=== PATIENT | female | born 1935 | race Caucasian/White ===

== ENCOUNTER 2024-04-20 05:48 | Outpatient (REF) | payer MEDICARE, SELFPAY ==
--- OUTSIDE RECORDS SUMMARY | 2024-04-20 05:51 | XMS_ITS | Encounter Summary ---
Author Organization [facility] Address [address] [place] [address] Care Team Providers Care Material Carrier Name Role Phone Mason Hoffman MD Primary Care Provider [phone] Reason for Visit * Reason Onset Date Comments fax order 03/30/2024 [facility] Fax Order [id number] Encounter Details Date Type Department Care Team (Late st Contact Info) Description 03/30/2024 Telephone Pediatrics - [place] [address] [place] [address] Mason Hoffman MD [address] [place] [address] fax order ([facility] Fax Order [id number]) Social History Tobacco Use Types Packs/Day Years Used Date Smoking Tobacco: Former Cigarettes Q uit: 12/01/2016 Smokeless Tobacco: Never Alcohol Use Standard Drinks/Week Comments Not Currently 0 (1 standard drink = 0.6 oz pur e alcohol) Housing Instability Answer Date Recorde d Are you worried that in the next 2 months you may not have stable housing? No 03/23/2024 Food Access & Nutrition Answer Date Rec orded Do you have access to a vari ety of food including fruits and vegetables? No 03/23/2024 Access to Healthcare Answer Date Record ed Within the last 3 months, abilio w many times did you visit the emergency department for your medical care? 2 03/23/2024 Health Literacy Answer Date Recorded How often do you need to hav e someone help you when you read instructions, pamphlets, or other written material from your doctor or pharmacy? Never 03/23/2024 Caregiver: How often do you need to have someone help you when you read instructions, pamphlets, or other written material from your doctor or pharmacy? Not on file 03/23/2024 Financial Risk Answer Date Recorded How hard is it for you to pa y for the very basics like food, housing, medical care, and air conditioning / heating? Not very hard 03/23/2024 Transportation Answer Date Recorded Has the lack of transportati on kept you from meetings, work, or from getting things needed for daily living? Yes Has the lack of transportati on kept you from medical appointments or from getting medications? Yes 03/23/2024 Social Isolation Answer Date Recorded How often do you feel lonely or isolated from th ose around you? Never 03/23/2024 Food Risk Answer Date Recorded Within the past 12 months we worried whether our food would run out before we got money to buy more. Never true 03/23/2024 Within the past 12 months th e food we bought just didn't last and we didn't have money to get more. Never true 03/23/2024 Dependent Care Answer Date Recorded Do you need help finding or paying for care for your loved ones. For example, early childhood education coordinator or elderly care for an older adult? No 03/23/2024 Education Answer Date Recorded Do you think completing more education or training, like finishing a GED, going to college, or learning a trade, would be helpful for you? N/A 03/23/2024 Employment and Income Answer Date Recor ded During the last four weeks, have you been actively looking for work? No 03/23/2024 Living Situation Answer Date Recorded What is your living situation? 0 03/23/2024 Interpersonal Safety Answer Date Record ed Physical Abuse 04/01/2024 Verbal Abuse 04/01/2024 Comments Unknown Sex and Gender Information Value Date Recorded Sex Assigned at Female 02/06/2024 5:07 AM EST Legal Sex Female 3:24 AM EST Gender Identity Female 02/06/2024 5:07 AM EST Sexual Orientation Straight 02/06/2024 5: 07 AM EST documented as of this encounter Functional Status * Are you deaf or do you have serious difficulty hearing? Answer Date of Assessment Author No 02/06/2024 1:51 AM Ramona Robbins RN * Are you blind or do you have serious difficulty seeing, even when wearing glasses? Answer Date of Assessment Author No 02/06/2024 1:51 AM Ramona Robbins RN * Do you have serious difficulty walking or climbing stairs? Answer Date of Assessment Author Yes 02/06/2024 1:51 AM Ramona Robbins RN * Do you have serious difficulty dressing or bathing? Answer Date of Assessment Author Yes 02/06/2024 1:51 AM Ramona Robbins RN * Because of a physical, mental, or emotional condition, do you have serious difficulty doing errandsalone such as visiting the doctor? Answer Date of Assessment Author No 02/06/2024 1:51 AM Ramona Robbins RN documented as of this encounter Mental Status * Because of a physical, mental, or emotional condition, do you have serious difficulty concentrating, remembering, or making decisions? (5 years old or older) Answer Entry Date Author No 02/06/2024 1:51 AM Ramona Robbins RN documented in this encounter Progress Notes * Aracely Moore MA - 03/31/2024 3:15 PM EST Faxed back * Kelle Cody - 03/30/2024 3:40 PM EST [facility] fax order placed in Mason Hoffman MD bin. Please sign, date, and fax back to [phone]. Thank you documented in this encounter Plan of Treatment Upcoming Encounters Date Type Department Care Team (Late st Contact Info) Description 04/30/2024 3:00 PM EST Consult Pulmonolgy - [place] [address] [facility] [address] [place] [address] Guille Gupta MD [address] [facility] [address] [place] [address] 09/27/2024 9:55 AM EDT Office Visit [facility] - [facility] [address] [facility] [address] [place] [phone] Jimmy Noguera MD [address] [place] [address] documented as of this encounter Visit Diagnoses Not on filedocumented in this encounter Additional Health Concerns Assessment Noted Time PHQ-9 Depression Total Score: 0 03/21/19 25 3:19 PM EST documented as of this encounter Care Teams Material Carrier Relationship Specialty Start Date End Date Mason Hoffman MD [address] [place] [address] PCP - General Internal Medicine 02/05/24 documented as of this encounter
--- OUTSIDE RECORDS SUMMARY | 2024-04-20 05:51 | XMS_ITS | Encounter Summary ---
Author Organization [facility] Address [address] [place] [address] Care Team Providers Care Surface Supply Breathing Apparatus Name Role Phone Abraham Valle MD Primary Care Provider Encounter Details Date Type Department Care Team (Late st Contact Info) Description 06/18/2018 6:20 PM EDT Hospital Encounter [facility] [address] [place] [phone] Simon Robles MD [address] [place] [id number] Pain Social History Tobacco Use Types Packs/Day Years Used Date Smoking Tobacco: Former Smokeless Tobacco: Never Sex and Gender Information Value Date Recorded Sex Assigned at Not on file Gender Identity Not on file Sexual Orientation Not on file documented as of this encounter Plan of Treatment Not on file documented as of this encounter Procedures Procedure Name Priority Date/Time Associated Diagnosis Comments XR FINGER (5TH) 2+ VIEWS-RIGHT Routine 06/18/2018 6:25 PM EDT Pain documented in this encounter Results * XR Finger (5th) 2+ views-Right (06/18/2018 6:25 PM EDT) Anatomical Region Laterality Modality Hand Right Computed Radiogr aphy 06/18/2018 6:29 PM EDT Impressions 06/18/2018 6:31 PM EDT Prominent degenerative changes, but no definite acute osseous injury identified. ?? Narrative 06/18/2018 6:31 PM EDT STUDY: XR FINGER (5TH) 2+ VIEWS-RIGHT INDICATION: injury. bruising and swelling COMPARISON: No prior similar studies were available for comparison at this institution. FINDINGS: Prominent degenerative changes are seen, most severe at the first interphalangeal joint and second through fifth distal interphalangeal joints. This somewhat limits evaluation for nondisplaced fractures, but no definite displaced fracture or dislocation is seen. No radiopaque foreign body is identified. Procedure Note Maria Luz Young MD - 06/18/2018 STUDY: XR FINGER (5TH) 2+ VIEWS-RIGHT INDICATION: injury. bruising and swelling COMPARISON: [facility] FINDINGS: Prominent degenerative changes are seen, most severe at the firstinterphalangeal joint and second through fifth distal interphalangealjoints. This somewhat limits evaluation for nondisplaced fractures, but nodefinite displaced fracture or dislocation is seen. No radiopaque foreign body is identified. IMPRESSION: Prominent degenerative changes, but no definite acute osseous injuryidentified. Jaya ARCHER IMG DIAGNOSTIC IMAGI NG ORDERABLES documented in this encounter Visit Diagnoses Diagnosis Pain Generalized pain documented in this encounter Care Teams Surface Supply Breathing Apparatus Relationship Specialty Start Date End Date Abraham Valle MD [address] [place] [address] PCP - General Internal Medicine 06/18/18 documented as of this encounter
--- OUTSIDE RECORDS SUMMARY | 2024-04-20 05:51 | XMS_ITS | Encounter Summary ---
Author Organization [facility] Address [address] [place] [address] Care Team Providers Care Process Eng Name Role Phone Mason Hoffman MD Primary Care Provider [phone] Reason for Visit * Reason Onset Date Comments Request For Order(s) 03/22/2024 [facility] [id number] Encounter Details Date Type Department Care Team ([facility] Contact Info) Description 03/22/2024 Telephone Pediatrics - [place] [address] [place] [address] Mason Hoffman MD [address] [place] [address] Request For Order(s) ([facility] [id number]) Social History Tobacco Use Types Packs/Day Years [...] care for your loved ones. For example, child welfare specialist or elderly care for an older adult? [...] Safety Answer Date Record ed Physical Abuse 02/06/2024 Verbal Abuse 02/06/2024 Comments Unknown Sex and Gender Information Value [...] Progress Notes * Aracely Moore MA - 03/23/2024 12:59 PM EST Faxed back * Rebeka Lopez - 03/22/2024 9:18 AM EST Placed order in Mason Hoffman MD Please sign and fax back to [phone] documented in this encounter Plan of Treatment Upcoming Encounters Date Type Department Care Team (Late st Contact Info) Description 04/30/2024 3:00 PM EST Consult Pulmonolgy - [place] [address] [facility] [address] [place] [phone] Guille Gupta MD [address] [facility] [address] [place] [address] 09/27/2024 9:55 AM EDT Office Visit [facility] - [facility] [address] [facility] [address] [place] [phone] Jimmy Noguera MD [address] [place] [address] documented as of this encounter Visit Diagnoses Not on filedocumented in this encounter Additional Health Concerns Assessment Noted Time PHQ-9 Depression Total Score: 0 03/21/19 25 3:19 PM EST documented as of this encounter Care Teams Process Eng Relationship Specialty Start Date End Date Mason Hoffman MD [address] [place] [address] PCP - General Internal Medicine 02/05/24 documented as of this encounter
--- OUTSIDE RECORDS SUMMARY | 2024-04-20 05:51 | XMS_ITS | Encounter Summary ---
Author Organization [facility] Address [address] [place] [address] Care Team Providers Care Publications Production Supervisor Name Role Phone Mason Hoffman MD Primary Care Provider [phone] Reason for Visit * Reason Comments Home health cert Encounter Details Date Type Department Care Team (Late st Contact Info) Description 03/26/2024 Billing Patient Not Present [facility] - [place] [address] [place] [address] Mason Hoffman MD [address] [place] [address] Encounter for change or removal of nonsurgical wound dressing (Primary Dx); Open wound of lower back and pelvis without penetration into retroperitoneum, initial encounter; Hypertensive heart and kidney disease, malignant, 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, with heart failure (CMS/HCC); Chronic obstructive pulmonary disease with acute exacerbation (CMS/HCC); Anemia, unspecified type; Atrioventricular block, complete (CMS/HCC); Difficulty walking; Muscle weakness (generalized); Acute and chronic respiratory failure with hypoxia (CMS/HCC); Chronic diastolic congestive heart failure (CMS/HCC); Peripheral vascular disease, unspecified (CMS/HCC); Hyperlipidemia, unspecified hyperlipidemia type; Stage 3 chronic kidney disease, unspecified whether stage 3a or 3b CKD (CMS/HCC); 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 For example, early childhood teacher assistant or elderly care for an older adult? [...] Progress Notes * Aracely Moore MA - 03/26/2024 2:59 PM EST Start of Care Date: 03/12/2024 Date of certification period: 03/12/24 to 05/10/24 Date of service = signature date 03/22/24 Hospice patient: no Home Care Agency: [facility] Recertification Code [id number] Initial Code G0180 documented in this encounter Plan of Treatment Upcoming Encounters Date Type Department Care Team (Late st Contact Info) Description 04/30/2024 3:00 PM EST Consult Pulmonolgy - [place] [address] [facility] [address] [place] [phone] Guille Gupta MD 175 [facility] [address] [place] [address] 09/27/2024 9:55 AM EDT Office Visit [facility] - [facility] [address] [facility] [address] [place] [phone] Jimmy Noguera MD [address] [facility] [address] [place] [address] documented as of this encounter Visit Diagnoses Diagnosis Encounter for change or removal of nonsurgical wound dressing- Primary Open wound of lower back and pelvis without penetration into retroperitoneum, initial encounter Hypertensive heart and kidney disease, malignant, 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, with heart failure (CMS/HCC) Chronic obstructive pulmonary disease with acute exacerbation (CMS/HCC) Anemia, unspecified type Atrioventricular block, complete (CMS/HCC) Atrioventricular block, complete Difficulty walking Difficulty in walking Muscle weakness (generalized) Acute and chronic respiratory failure with hypoxia (CMS/HCC) Chronic diastolic congestive heart failure (CMS/HCC) Peripheral vascular disease, unspecified (CMS/HCC) Peripheral vascular disease, unspecified Hyperlipidemia, unspecified hyperlipidemia type Stage 3 chronic kidney disease, unspecified whether stage 3a or 3b CKD (CMS/HCC) Anemia in chronic kidney disease, unspecified CKD stage Anxiety disorder, unspecified type 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
--- OUTSIDE RECORDS SUMMARY | 2024-04-20 05:51 | XMS_ITS ---
Author Organization [facility] Address [address] [place] [address] Phone Care Team Providers Care Heavy Equipment Operating Engineer Name Role Phone Mason Hoffman MD Primary Care Provider [phone] [facility] - Transportation Status:Ongoing (Active) Start date:03/24/2024 Enrollment date:03/24/2024 Enrollment reason:Referred by Care Team Related social drivers of health:Transportation Related program episode:Community Health Worker Program (Active) Overview Community Health Worker Program - Transportation Service Episode Case Team Name Relationship Phone Annette Dahl Community Health Worker(Responsi ble Staff) Continued Care and Services Coordination
--- OUTSIDE RECORDS SUMMARY | 2024-04-20 05:51 | XMS_ITS | Encounter Summary ---
Author Organization [facility] Address [address] [place] [address] Care Team Providers Care Quality Assurance Monitor Chassis Name Role Phone Mason Hoffman MD Primary Care Provider [phone] Reason for Visit * Reason Onset Date Comments Request For Order(s) 03/17/2024 [facility] [id number] Encounter Details Date Type Department Care Team ([facility] Contact Info) Description 03/17/2024 Telephone Pediatrics - [place] [address] [place] [address] Mason Hoffman MD [address] [place] [address] Request For Order(s) ([facility] [id number]) Social History Tobacco Use Types Packs/Day Years [...] for your loved ones. For example, child care attendant or elderly care for an older adult? [...] documented in this encounter Progress Notes * Rebeka Lopez - 03/17/2024 1:27 PM EST Placed order in Mason Hoffman MD Please sign and fax back to [phone] documented in this encounter Plan of Treatment Upcoming Encounters Date Type Department Care Team (Late st Contact Info) Description 04/30/2024 3:00 PM EST Consult Pulmonolgy - [place] 175 [facility] 200 [place] [address] Guille Gupta MD 175 [facility] 200 [place] [address] 09/27/2024 9:55 AM EDT Office Visit [facility] - [facility] [address] [facility] [address] [place] [address] Jimmy [facility]oguera MD [facility] [address] [place] [address] documented as of this encounter Visit Diagnoses Not on filedocumented in this encounter Additional Health Concerns Infection Onset Date Last Indicated Resolved Time Respiratory Rule-Out 03/31/2024 03/31/2024 025 5:53 PM EST COVID-19 Rule-Out 03/31/2024 03/31/2024 03/31/2024 5:53 PM EST documented as of this encounter Care Teams Quality Assurance Monitor Chassis Relationship Specialty Start Date End Date Mason Hoffman MD [address] [place] [address] PCP - General Internal Medicine 02/05/24 documented as of this encounter
--- OUTSIDE RECORDS SUMMARY | 2024-04-20 05:51 | XMS_ITS | Encounter Summary ---
Author Organization [facility] Address [address] [place] [address] Care Team Providers Care Designer Architect Name Role Phone Mason Hoffman MD Primary Care Provider [phone] Reason for Visit * Reason Comments Hospital Follow-up S/P device implant 1 04/08/2023 Encounter Details Date Type Department Care Team (Late st Contact Info) Description 03/26/2024 8:10 AM EST Telemedicine [facility] - [facility] [address] [facility] [address] [place] [address] Alma Hanson NP [address] [place] [address] Status post placement of cardiac pacemaker (Primary Dx) Social History Tobacco Use Types Packs/Day Years [...] for your loved ones. For example, child development assistant or elderly care for an older [...] documented in this encounter Progress Notes * Alma Hanson, OZZY - 03/26/2024 8:10 AM EST PRIMARY EQUIPMENT MAN: Erick Noguera MD PCP: Mason Hoffman MD Alma Cassidy is a 89 y.o. old female History of Present Illness Past medical history 1. O2 dependent COPD 2. CVA 3. Complete heart block, status post [employer] dual-chamber pacemaker implantation on January 4. Recurrent GI bleed, angiodysplasia of the colon, January 2024, presented to the ER with hematemesis, note reads hemoglobin improved to 7.8. 5. PAD - Carotid artery disease noted 70% stenosis on the left in 2022 6. Hypertension 7. Aortic stenosis 8. Chronic kidney disease baseline creatinine 1.8 9. Stage 3 A paroxymal atrial fibrillation, record would suggest first diagnosed in 2022 - diagnosed at time of acute ischemic CVA July 2022, note reads known new onset atrial fibrillation, anticoagulation held due to GI bleed. Rate controlled with beta-eloy She was scheduled to establish care with our practice in 2021, this appointment was not kept, multiple attempts made to reschedule, but each time appointments were canceled by this patient. We next encountered her at the time of her presentation with complete heart block in January 2024. CONSENT I ensured compliance with state and federal regulations by utilizing audio only telecommunication technology. Through verbal confirmation, I verified the patient's identity and provided information on telephonic delivery of care, HIPAA privacy, and the risks of communicating over the phone. The patient acknowledged the limitations of treatment via telephone and consented to the audio visit. They also confirmed their comfort in a quiet and private location to discuss their health freely. The patient was informed that the visit would be submitted to their insurance, and any applicable co-pay ordeductible would be their responsibility. Additionally, if the patient is limited Azerbaijani proficient , deaf, or hard of hearing, speech impaired, or has another disability which impairs their ability to communicate, the services of a qualified typewriter tester will be provided during the visit. Patient does not have video capability Patients Location: Home Provider Location: [address] [place] [address], [address], [facility] Total Time: 30 minutes Reason for telemedicine encounter: Hospital follow up, unable to transport from home. Echocardiogram January 2024, left ventricular cavity size normal, mild concentric LVH, EF 65 to 70%, no regional wall motion abnormalities. Normal right ventricular size and systolic function. Mild aortic stenosis, severe calcification of the mitral valve leaflets, mild MR, unable to assess degreeof mitral stenosis due to to complete heart block and heart rate variation. Elevated pulmonary pressures. Study completed and complete heart block Echocardiogram July 2022, normal left ventricular chamber size and wall thickness. Unable to assesswall motion. EF 70%, mid cavity gradient at rest 60 mmHg unable to obtain Valsalva, of note the study states diastolic function cannot be made as the patient appears to be in atrial fibrillation mildTR, moderate to severe mitral stenosis with an average mean gradient of 11 mmHg trace MR Since returning home - continued SOB, no significant orthopnea or PND. Mild right ankle edema That resolves with elevation. She has had no exertional chest pain, lightheadedness. She will occasionally feel palpitations, she felt some this morning, she did send me a manual download and there were norecorded events. Most recent atrial arrhythmia was recorded on March 21, this was a slow one-to-one probable atypical flutter or atrial tachycardia, in January she had an episode of atrial fibrillation that lastedfor for close to 8 days, with borderline rate control by histogram, but review of electrograms showperiods of rapid ventricular pacing, which may have been due to under sensing in the atrium and tracking. Most recent BMP March 11, 2024, potassium 4.7, BUN and creatinine at baseline 20/1.71 Magnesium February 07, 2024 3.1, TSH 1.98 Results ACTIVE MEDICATIONS: Outpatient Medications Marked as Taking for the 03/26/24 encounter (Telemedicine) with Alma Hanson NP Medication Sig Dispense Refill atorvastatin (LIPITOR) 40 mg tablet Take 1 tablet (40 mg total) by mouth 1 (one) time each day. budesonide (PULMICORT) 0.5 mg/2 mL nebulizer solution Take 2 mL (0.5 mg total) by nebulization 2 (two) times a day. furosemide (LASIX) 20 mg tablet Take 1 tablet (20 mg total) by mouth 1 (one) time each day. iron,carbonyl-vitamin C 65 mg iron- 125 mg tablet,delayed release (DR/EC) Take 1 tablet by mouth 1 (one) time each day. metoprolol succinate (TOPROL-XL) 50 mg 24 hr tablet Take 1 tablet (50 mg total) by mouth 1 (one) time each day. polyethylene glycol (MIRALAX) 17 gram packet Take 17 g by mouth 1 (one) time each day. 90 packet 0 senna-docusate (PERICOLACE) 8.6-50 mg per tablet Take 1 tablet by mouth 1 (one) time each day. 90 each 0 [DISCONTINUED] aspirin 81 mg EC tablet Take 1 tablet (81 mg total) by mouth 1 (one) time each day. [DISCONTINUED] metoprolol succinate (TOPROL-XL) 50 mg 24 hr tablet TAKE 1 TABLET BY MOUTH DAILY 90 tablet 0 ALLERGIES: Allergies Allergen Reactions Gabapentin Hallucinations Visual and auditory hallucinations FAMILY HISTORY: Family History Problem Relation Name Age of Onset Hypertension Mother Stroke Mother Heart attack Father Coronary artery disease Father No Known Problems Daughter Stroke Son Mental illness Son deficiences from car accident No Known Problems Son Coronary artery disease Brother No Known Problems Brother SOCIAL HISTORY: Social History Tobacco Use Smoking status: Former Current packs/day: 0.00 Types: Cigarettes Quit date: 12/01/2016 Years since quittin.3 Smokeless tobacco: Never Substance Use Topics Alcohol use: Not Currently PHYSICAL EXAM: There were no vitals taken for this visit. There is no height or weight on file to calculate BMI. Physical Exam Constitutional: General: She is awake. Neurological: Mental Status: She is alert and oriented to person, place, and time. Encounter Date: 02/20/24 ECG 12 lead Result Value Ventricular Rate ECG 77 Atrial Rate 77 P-R Interval 166 QRS Duration 134 Q-T Interval 438 QTc 495 P Wave [place] 89 R [place] 138 T [place] 79 ECG Interpretation Atrial-sensed ventricular-paced rhythm Abnormal ECG When compared with ECG of 20-FEB-2024 09:01, No significant change was found Confirmed by ERICK CARSON ([id number]) on 02/21/2024 9:16:05 AM *Note: Due to a large number of results and/or encounters for the requested time period, some results have not been displayed. A complete set of results can be found in Results Review. TESTING: Lab Results Component Value Date NA 141 03/11/2024 K 4.7 03/11/2024 CL 107 03/11/2024 CO2 28 03/11/2024 GLUCOSE 113 (H) 03/11/2024 BUN 20 03/11/2024 CREATININE 1.71 (H) 03/11/2024 CALCIUM 9.3 03/11/2024 PROT 5.3 (L) 03/08/2024 ALBUMIN 2.6 (L) 03/08/2024 BILITOT 0.5 03/08/2024 AST 13 03/08/2024 ALT 16 03/08/2024 PHOS 4.2 02/07/2024 MG 3.1 (H) 02/07/2024 ALKPHOS 89 03/08/2024 EGFR 29 (L) 03/11/2024 , Lab Results Component Value Date WBC 6.9 03/11/2024 HGB 7.5 (L) 03/11/2024 HCT 26.7 (L) 03/11/2024 MCV 96.7 03/11/2024 PLT 272 03/11/2024 , Lab Results Component Value Date CHOL 153 09/12/2022 Lab Results Component Value Date HDL 82 09/12/2022 No results found for: LDLCALC Lab Results Component Value Date TRIG 79 09/12/2022 No results found for: CHOLHDL , Lab Results Component Value Date TSH 1.98 02/06/2024 , No results found for: DIGOXIN , Lab Results Component Value Date GLUCOSE 113 (H) 03/11/2024 CALCIUM 9.3 03/11/2024 NA 141 03/11/2024 K 4.7 03/11/2024 CO2 28 03/11/2024 CL 107 03/11/2024 BUN 20 03/11/2024 CREATININE 1.71 (H) 03/11/2024 , Lab Results Component Value Date HSTROPI 16 02/06/2024 , and No results found for: CRP PAST MEDICAL HISTORY: Patient Active Problem List Diagnosis Date Noted Third degree AV block ([facility]) 02/06/2024 Paroxysmal atrial fibrillation ([facility]) 03/26/2024 PAD (peripheral artery disease) ([facility]) 03/26/2024 Cerebrovascular accident (CVA) due to embolism of precerebral artery ([facility]) 03/26/2024 Gastrointestinal hemorrhage with hematemesis 03/26/2024 Nonrheumatic mitral valve stenosis 03/26/2024 Nonrheumatic aortic valve stenosis 03/26/2024 Chronic obstructive pulmonary disease ([facility]) 03/23/2024 Stage 4 chronic kidney disease ([facility]) 03/23/2024 Status post placement of cardiac pacemaker 03/23/2024 Primary hypertension 03/23/2024 As per AHA guidelines and previously established plan of care by Dr. Erick Noguera MD we discussedthe following today: ASSESSMENT/PLAN: Assessment & Plan Stage 3A paroxysmal Atrial Fibrillation/AT: - History of stroke not anticoagulated due to recurrent gastrointestinal bleeding -We discussed management, indication for anticoagulation, continued contraindication, presence of mitral stenosis she would be a candidate for only warfarin. We discussed Watchman device, need for general anesthesia, lifelong aspirin, 6 months of DAPT, poor candidacy. We also discussed pursuing rhythm control, she is not a candidate for the class Ic antiarrhythmics in the setting of vascular disease, sotalol nor Tikosyn ideal in the setting of chronic kidney disease, recent creatinines between 1.8 and 2.6. We may consider Multaq which might be cost prohibitive or amiodarone, but I do wish to discuss with you in the setting of severe COPD. She expressed understanding of her elevated risk of stroke, she stated that given her age, and comorbidities, she would not elect to move forward with watchman even if the team deemed her an acceptable candidate. I will discuss antiarrhythmic therapy further with Dr. Noguera and reach out to you for your input. For now we will continue to monitor her device for appropriate device behavior and burden of atrialfibrillation. HFpEF - Continue current dose of diuretic - Continue to encourage low-sodium eating, exercises much as she is able Complete heart block -[employer] dual-chamber pacemaker. Manual download today, normal device function, continue remote monitoring and annual in office follow-up in our device clinic Mitral Stenosis - continue to monitor with serial echo Problem List Items Addressed This Visit Status post placement of cardiac pacemaker - Primary Visit length 60 minutes including record review Thank you for allowing us to participate in the care of this patient. Today's documentation was made using voice recognition software.This note may contain grammatical errors secondary to this software. documented in this encounter Plan of Treatment Upcoming Encounters Date Type Department Care Team (Late st Contact Info) Description 04/30/2024 3:00 PM EST Consult Pulmonolgy - [place] [address] [facility] [address] [place] [id number] Guille Gupta MD [address] [facility] [address] [place] [address] 09/27/2024 9:55 AM EDT Office Visit [facility] - [address] [place] [address] Erick Noguera MD [address] [place] [address] documented as of this encounter Visit Diagnoses Diagnosis Status post placement of cardiac pacemaker- Primary documented in this encounter Discontinued Medications Medication Sig Discontinue Reason Start Date End Da te aspirin 81 mg EC tablet Take 1 tablet (81 mg total) by mouth 1 (one) time each day. 08/07/2022 03/26/2024 metoprolol succinate (TOPROL-XL) 50 mg 24 hr tablet TAKE 1 TABLET BY MOUTH DAILY 03/01/2024 03/26/2024 documented as of this encounter Historical Medications * This list may reflect changes made after this encounter. iron,carbonyl-vit lomeli C 65 mg iron- 125 mg tablet,delayed release (DR/EC) Take 1 tablet by mouth 1 (one) time each day. 06/28/2021 added in this encounter Additional Health Concerns Assessment Noted Time PHQ-9 Depression Total Score: 0 03/21/19 25 3:19 PM EST documented as of this encounter Care Teams Designer Architect Relationship Specialty Start Date End Date Mason Hoffman MD [address] [place] [address] PCP - General Internal Medicine 02/05/24 documented as of this encounter
--- OUTSIDE RECORDS SUMMARY | 2024-04-20 05:51 | XMS_ITS | Encounter Summary ---
Author Organization [facility] Address [address] [place] [address] Care Team Providers Care Homeworker Name Role Phone Mason Hoffman MD Primary Care Provider [phone] Reason for Referral * Consultation (Routine) - Authorized Specialty Diagnoses / Procedures Referred By Contac t Referred To Contact Nephrology Diagnoses Stage 4 chronic kidney disease ([facility]/HCC) Mason Hoffman MD [address] [place] [address] Phone: tel: fax: Nephrology - [address] Phone: tel: fax: Referral ID Status Reason Start Date Expiration Date Visits Requested Visits Authorized [id number] Authorized Specialty Services Required 03/23/2024 03/23/2025 1 1 * Consultation (Routine) - Authorized Specialty Diagnoses / Procedures Referred By Contac t Referred To Contact Pulmonary Disease / Pulmonology Diagnoses Chronic obstructive pulmonary disease, unspecified COPD type ([facility]/HCC) Mason Hoffman MD [address] [place] [address] Phone: tel: fax: Pulmonol[address] [address] Phone: tel:[phone] fax:[phone] Referral ID Status Reason Start Date Expiration Date Visits Requested Visits Authorized [id number] Authorized Specialty Services Required 03/23/2024 03/23/2025 1 1 Reason for Visit * Reason Comments Hospital Follow-up Encounter Details Date Type Department Care Team (Late st Contact Info) Description 03/23/2024 10:30 AM EST Telemedicine Assistant Field Hockey Coach [facility] [address] [place] [address] Mason Hoffman MD [address] [place] [address] Hospital discharge follow-up (Primary Dx); Chronic obstructive pulmonary disease, unspecified COPD type (CMS/HCC); Stage 4 chronic kidney disease (CMS/HCC); Third degree AV block (CMS/HCC); Status post placement of cardiac pacemaker; Primary hypertension Social History Tobacco Use Types Packs/Day Years [...] care for your loved ones. For example, children's nursery assistant or elderly care for an older [...] of Assessment Author No 02/06/2024 1:51 AM EST Ramona Snow RN * Are you blind or do you have serious difficulty seeing, even when wearing glasses? Answer Date of Assessment Author No 02/06/2024 1:51 AM EST Ramona Snow RN * Do you have serious difficulty [...] documented in this encounter Progress Notes * Mason Hoffman MD - 03/23/2024 10:30 AM EST The patient received guidance on receiving healthcare through telehealth, including the use of HIPAA privacy -compliant technology for remote communication and its associated privacy risks. The patient was also informed of the limitations of treatment provided through telehealth and that in the event of a lost or failed video connection, the provider may call back or reschedule the visit. Alternatively, the patient may opt for an in-person visit. The patient gave consent for the use of video communication and provided care and confirmed that they were in a quiet and private location to discuss their health freely. The patient understands the visit will be submitted to their insurance and that they are responsible for any copay or deductible charges. Additionally, if the patient is LimitedEnglish Proficient, deaf, or hard of hearing, speech impaired, or has another disability which impairs their ability to communicate, the services of a qualified superintendent mechanical will be provided during the visit. Patients Location: home Total Time: 40 minutes This visit was conducted with the use of an an interactive system that permits real time communication between the patient and provider. Patient consent for a virtual video visit was obtained on 03/23/2024. Originating Site: home Distant Site: office Additional individuals participating in remote visit: Alone CHIEF COMPLAINT: Hospital Follow-up IDENTIFIER: Alma Cassidy is a 89 y.o. old female HPI: Alma Cassidy is evaluated today for hospital follow-up. Patient with past medical history of oxygen dependent COPD, CVA late effect, CHF, hypertension, aortic stenosis and PAD was admitted at [facility] on 02/05/2024 due to worsening shortness of breath. Patient found to have third-degree heart block admission which required emergent permanent pacemaker placement and ICU admission. Pacemaker was placed 02/05. Additionally patient was found to have acute hypoxic respiratory failure secondary to acute COPD exacerbation as well as likely bacterial pneumonia. Patient uses 2 L of O2 via nasal cannula at at home with rest and exertion however in the hospital patient required O2 via HFN C. Patient had been started on IV Zosyn for multifocal pneumonia as apparent on imaging. Patient was weaned off O2 supplementation via HFNC to nasal cannula as of 02/07. Patient also had worsening inher renal function with creatinine increasing to 2.29 which was attributed to likely contrast-induced nephropathy. Patient was hydrated with IV fluids and IV Zosyn was discontinued and patient was started on ceftriaxone and doxycycline. Patient's creatinine levels gradually improved to 1.78 as of 02/10. Hospital stay involved mild hypernatremia which was treated with D5 water infusion. PT evaluation was performed which recommended SNF placement. Patient was discharged to SNF on 02/12/24 on a 5-day course of Augmentin and doxycycline for underlying pneumonia. During her stay at [facility] patient was transferred to the ER for hematemesis on 02/20/2024 andwas returned from ER with hemoglobin improved to 7.8. Her CT abdomen was negative for new pathology. Patient was discharged from [facility] on 03/11/2024. Discharge medications: START taking these medications Instructions Last Dose Given Next Dose Due amoxicillin-clavulanate 875-125 mg per tablet Commonly known as: AUGMENTIN Take 1 tablet by mouth 2 (two) times a day for 5 days. clonazePAM 0.25 mg disintegrating tablet Commonly known as: KlonoPIN Take 1 tablet (0.25 mg total) by mouth 2 (two) times a day if needed for anxiety for up to 7 days. Max Daily Amount: 0.5 mg doxycycline 100 mg capsule Commonly known as: VIBRAMYCIN Take 1 capsule (100 mg total) by mouth 2 (two) times a day for 5 days. Take with at least 8 ounces (large glass) of water, do not lie down for 30 minutes after CONTINUE taking these medications Instructions Last Dose Given Next Dose Due aspirin 81 mg EC tablet Take 1 tablet (81 mg total) by mouth 1 (one) time each day. atorvastatin 40 mg tablet Commonly known as: LIPITOR Take 1 tablet (40 mg total) by mouth 1 (one) time each day. budesonide 0.5 mg/2 mL nebulizer solution Commonly known as: PULMICORT Take 2 mL (0.5 mg total) by nebulization 2 (two) times a day. furosemide 20 mg tablet Commonly known as: LASIX Take 1 tablet (20 mg total) by mouth 1 (one) time each day. metoprolol succinate 50 mg 24 hr tablet Commonly known as: TOPROL-XL Take 1 tablet (50 mg total) by mouth 1 (one) time each day. Patient reports that she is doing well since her discharge from SNF. Patient is still on 2 L of oxygen at home. Patient is also using Pulmicort nebulizer every 4 hours to help with her breathing. Marilee completed her antibiotic course. Patient states that she has PT and OT visiting twice a week and a nurse who also visits twice a week. Patient states that she has no means of transportation and no family member who can take her to her specialist appointments. She has COPD on oxygen supplementation but does not follow with a athletic team physician. She has CKD stage IV with GFR 28 but does not follow with a building and construction manager. She has a pacemaker in place but does not know how to follow with the pain medicine physician. Patient's main concern is her transportation and she is wondering if that can be arranged for her to that she can go to her appointments. She is otherwise doing well and has no other concerns. Marilee been taking all her meds as prescribed since discharge. She is also on iron supplements twice aday for her anemia. Her last hemoglobin is stable above 7. Unclear etiology but most likely due to a nemia of chronic disease secondary to CKD. Patient denies any bleeding from anywhere. ROS: GENERAL: No malaise, significant weight loss or fever RESPIRATORY: Denies any cough, wheezing or shortness of breath. CARDIOVASCULAR: No chest pain, leg swelling or palpitations Gastroenterology: Denies any abdominal pain, diarrhea or blood in stool : Denies any urinary frequency or nocturia Skin: No concerns Neuro: No concerns All other systems reviewed and negative PAST MEDICAL HISTORY: Patient Active Problem List Diagnosis Date Noted Chronic obstructive pulmonary disease ([facility]) 03/23/2024 Stage 4 chronic kidney disease ([facility]) 03/23/2024 Status post placement of cardiac pacemaker 03/23/2024 Primary hypertension 03/23/2024 Third degree AV block ([facility]) 02/06/2024 ACTIVE MEDICATIONS: No outpatient medications have been marked as taking for the 03/23/24 encounter (Telemedicine) with Mason Hoffman MD. ALLERGIES: Gabapentin PHYSICAL EXAM: Telemedicine visit - Vitals could not be obtained as this was a telehealth visit. General: Patient sounded awake, alert and in no acute distress, on 2 L of oxygen Respiratory: No audible wheeze or respiratory distress heard Cardio: Patient denies any leg swelling on exam Skin: No lesions or rashes. Neuro: Patient is speaking in full Sentences Psych: AAOx3. Mood and affect appropriate IMPRESSION: 1. Hospital discharge follow-up 2. Chronic obstructive pulmonary disease, unspecified COPD type ([facility]) 3. Stage 4 chronic kidney disease ([facility]) 4. Third degree AV block ([facility]) 5. Status post placement of cardiac pacemaker 6. Primary hypertension PLAN: Information was extracted from the discharge notes from [facility]. The history was reviewed for accuracy and confirmed by myself. I have reconciled the current and discharge meds. Patient was admitted at [facility] on 02/05/2024 due to worsening shortness of breath. Patient found to have third-degree heart block admission which required emergent permanent pacemaker placement which was placed 02/05. Additionally patient was found to have acute hypoxic respiratory failure secondary to acute COPD exacerbation as well as likely bacterial pneumonia. Patient was treated with IV antibiotics and was placed on high flow nasal cannula. Patient was weaned off O2 supplementation via HFNC to nasal cannula as of 02/07. Patient also had worsening in her renal function with creatinine increasing to 2.29 which was attributed to likely contrast-induced nephropathy. Patient'screatinine levels gradually improved to 1.78 as of 02/10. Patient was discharged to SNF on 02/12/24on a 5-day course of Augmentin and doxycycline for underlying pneumonia. Patient was discharged from SNF to home with home health on 03/11/2024. Patient reports that she has been doing well since discharge however her main concern is transportation as she is not able to go in person to any of her specialist appointment as she has no means of transportation. She she has 1 son who has stroke and is unable to take her to appointments. She has 1 daughter who lives out of town and does not think that she can help with her transportation. Patient is requesting us to arrange transportation so that she can go to her specialist appointment. I will refer patient to our social worker masters to see if she can help in arranging transportation for patient. I will also refer patient to pulmonology and nephrology for her underlying chronic disease. Patient was advised to continue with all her meds as prescribed including iron supplements. No repeat testing needed today. Follow-up with patient in 3 months via telehealth. I spent a total of 40 minutes on the date of the service, including [id number] time during the visit and jkt-[id number]-[id number]-face time spent on chart review, documentation, care coordination and performingthe following activities: Preparing to see the patient (e.g. reviewing tests), Obtaining and/or reviewing separately obtained history, Counseling and educating the patient and Documenting clinical information in the electronic health record. Orders Placed This Encounter Procedures Ambulatory referral to Pulmonology Ambulatory referral to Nephrology ADDITIONAL ORDERS: AMB REFERRAL TO PULMONOLOGY AMB REFERRAL TO NEPHROLOGY Today's documentation was made using voice recognition software.This note may contain grammatical errors secondary to this software. Mason Hoffman MD on 03/23/2024 at 11:05 AM EST documented in this encounter Plan of Treatment Upcoming Encounters Date Type Department Care Team (Late st Contact Info) Description 04/30/2024 3:00 PM EST Consult Pulmonolgy - [place] 175 [facility] [address] [place] [address] Guille Gupta MD 175 [facility] 200 [place] [address] 09/27/2024 9:55 AM EDT Office Visit [facility] - [facility] [address] [facility] [address] [place] [address] Jimmy Noguera MD 300 [facility] [address] [place] [address] Scheduled Referrals Name Type Priority Associated Diagnoses Order Schedule Ambulatory referral to Pulmonology Outpatient Referral Routine Chronic obstructive pulmonary disease, unspecified COPD type (CMS/HCC) 1 Occurrences starting 03/23/2024 until 03/23/2025 Ambulatory referral to Nephrology Outpatient Referral Routine Stage 4 chronic kidney disease (CMS/HCC) 1 Occurrences starting 03/23/2024 until 03/23/2025 documented as of this encounter Visit Diagnoses Diagnosis Hospital discharge follow-up- Primary Other follow-up examination Chronic obstructive pulmonary disease, unspecified COPD type (CMS/HCC) Stage 4 chronic kidney disease (CMS/HCC) Third degree AV block (CMS/HCC) Atrioventricular block, complete Status post placement of cardiac pacemaker Primary hypertension Unspecified essential hypertension documented in this encounter Additional Health Concerns Assessment Noted Time PHQ-9 Depression Total Score: 0 03/21/19 25 3:19 PM EST documented as of this encounter Care Teams Homeworker Relationship Specialty Start Date End Date Mason Hoffman MD [address] [place] [address] [place] [address] PCP - General Internal Medicine 02/05/24 documented as of this encounter
--- OUTSIDE RECORDS SUMMARY | 2024-04-20 05:51 | XMS_ITS | Encounter Summary ---
Author Organization [facility] Address [address] [place] [address] Care Team Providers Care Crystal Report Developer Name Role Phone Mason Hoffman MD Primary Care Provider [phone] Encounter Details Date Type Department Care Team ([facility] st Contact Info) Description 03/24/2024 Telephone [place] Community Health Worker Program [address] [place] [address] [place], [place] Social History Tobacco Use Types Packs/Day Years [...] your loved ones. For example, child welfare consultant or elderly care for an older adult? [...] documented in this encounter Progress Notes * Annette Dahl - 03/24/2024 12:15 PM EST Patient referred to me by Amrita Garcia (RN). Patient in need of transportation to her medical appointments. Mrs. Marquez is all set for transportations. [facility] is wheelchair accessible and they can transport her with oxygen. I did indicate to her that she would need to call 1 week prior to her appointments, or she can always call me and I can schedule them for her. I also shared with her the cost per ride. [facility] has another program ([employer]) that is free. She would need to apply for that one.I will schedule an outreach after FridayApril 05. so I can visit her with the application and assist her. Annette Dahl Community Health Worker documented in this encounter Plan of Treatment Upcoming Encounters Date Type Department Care Team (Late st Contact Info) Description 04/30/2024 3:00 PM EST Consult Pulmonolgy - [place] 175 [facility] [address] [place] [id number] Guille Gupta MD 175 [facility] 200 [place] [address] 09/27/2024 9:55 AM EDT Office Visit [facility] - [facility] [address] [facility] [address] [place] [address] Jimmy Noguera MD [address] [facility] [address] [place] [address] documented as of this encounter Visit Diagnoses Not on filedocumented in this encounter Additional Health Concerns Infection Onset Date Last Indicated Resolved Time Respiratory Rule-Out 03/31/2024 03/31/2024 025 5:53 PM EST COVID-19 Rule-Out 03/31/2024 03/31/2024 03/31/2024 5:53 PM EST Assessment Noted Time PHQ-9 Depression Total Score: 0 03/21/19 25 3:19 PM EST documented as of this encounter Care Teams Crystal Report Developer Relationship Specialty Start Date End Date Mason Hoffman MD [address] [place] [address] PCP - General Internal Medicine 02/05/24 documented as of this encounter
--- OUTSIDE RECORDS SUMMARY | 2024-04-20 05:51 | XMS_ITS ---
Author Organization [facility] Address [address] [place] [address] Phone Care Team Providers Care Signals Intelligence Analyst Name Role Phone Mason Hoffman MD Primary Care Provider [phone] Post Acute Care Coordination Status:Ongoing (Active) Start date:04/02/2024 Enrollment date:04/05/2024 Enrollment reason:Post acute care coordination Case Team Name Relationship Phone Rae Lyman RN Post Acute Clinical Care Coordinator(R esponsible Staff) Continued Care and Services Coordination
--- OUTSIDE RECORDS SUMMARY | 2024-04-20 05:51 | XMS_ITS | Encounter Summary ---
Author Organization [facility] Address [address] [place] [address] Care Team Providers Care Splitter Tender Name Role Phone Mason Hoffman MD Primary Care Provider [phone] Reason for Visit * Reason Onset Date Comments PROVIDER CALLBACK 03/19/2024 Encounter Details Date Type Department Care Team (Late Contact Info) Description 03/19/2024 Telephone Pediatrics - [facility] [address] [place] [address] Mason Hoffman MD [address] [place] [address] PROVIDER CALLBACK Social History Tobacco Use Types Packs/Day Years [...] ed Within the last 3 months, abilio flores many times did you visit the emergency [...] for your loved ones. For example, children's ministries director or elderly care for an older adult? [...] Assessment Author No 02/06/2024 1:51 AM EST aRmona Snow RN * Are you blind or [...] documented in this encounter Progress Notes * Brittany Garcia LPN - 03/19/2024 1:27 PM EST [facility] calling to make sure Dr. Hoffman will sign orders for pt's care. * Cheryl Kidd - 03/19/2024 11:28 AM EST [place]ie from [facility] caregivers is requesting to know if the pcp will be able to sign orders for the pt. Please callback @ [phone].Thx documented in this encounter Plan of Treatment Upcoming Encounters Date Type Department Care Team (Late st Contact Info) Description 04/30/2024 3:00 PM EST Consult Pulmonolgy - [place] 175 [facility] [address] [place] [address] Guille Gupta MD 175 [facility] [address] [place] [address] 09/27/2024 9:55 AM EDT Office Visit [facility] - [facility] [address] [facility] [address] [place] [phone] Jimmy Noguera MD [address] [facility] [address] [place] [address] documented as of this encounter Visit Diagnoses Not on filedocumented in this encounter Additional Health Concerns Infection Onset Date Last Indicated Resolved Time Respiratory Rule-Out 03/31/2024 03/31/2024 025 5:53 PM EST COVID-19 Rule-Out 03/31/2024 03/31/2024 03/31/2024 5:53 PM EST documented as of this encounter Care Teams Splitter Tender Relationship Specialty Start Date End Date Mason Hoffman MD [address] [place] [address] PCP - General Internal Medicine 02/05/24 documented as of this encounter
--- OUTSIDE RECORDS SUMMARY | 2024-04-20 05:51 | XMS_ITS ---
Author Organization [facility] Address [address] [place] [address] Phone Care Team Providers Care Ointment Mill Tender Name Role Phone Mason Hoffman MD Primary Care Provider [phone] Community Health Worker Program Status:Ongoing (Active) Start date:03/24/2024 Enrollment date:03/24/2024 Enrollment reason:Referred by Care Team Current support & services provided:Adult Related service episodes:[facility] - Transportation (Active) Overview Community Health Worker Program Case Team Name Relationship Phone Annette Dahl Community Health Worker(Responsi ble Staff) Continued Care and Services Coordination
--- OUTSIDE RECORDS SUMMARY | 2024-04-20 05:51 | XMS_ITS ---
Author Organization [facility] Address [address] [place] [address] Phone Care Team Providers Care Chain Person Name Role Phone Mason Hoffman MD Primary Care Provider [phone] Chronic Care Management Status:Ongoing (Active) Start date:03/23/2024 Enrollment date:03/23/2024 Enrollment reason:Referred by provider Case Team Name Relationship Phone Amrita Garcia RN Care Manager(Responsible Staff) Continued Care and Services Coordination
--- OUTSIDE RECORDS SUMMARY | 2024-04-20 05:52 | XMS_ITS | Encounter Summary ---
Author Organization [facility] Address [address] [place] [address] Care Team Providers Care Reinstatement Clerk Name Role Phone Mason Hoffman MD Primary Care Provider [phone] Encounter Details Date Type Department Care Team (Late st Contact Info) Description 03/03/2024 Lab Requisition [facility] - Main Lab [address] [facility] [place] [address] Wally Flood MD [address] [place] [address] Chronic obstructive pulmonary disease with (acute) exacerbation (CMS/HCC); Essential (primary) hypertension Social History Tobacco Use Types Packs/Day Years Used Date Smoking Tobacco: Former Cigarettes Q uit: 12/01/2016 Smokeless Tobacco: Never Alcohol Use Standard Drinks/Week Comments Not Currently 0 (1 standard drink = 0.6 oz pur e alcohol) Interpersonal Safety Answer Date Record ed Physical [...] Ramona Robbins RN documented in this encounter Plan of Treatment Upcoming Encounters Date Type Department Care Team (Late st Contact Info) Description 04/30/2024 3:00 PM EST Consult Pulmonolgy - [place] [address] [address] Guille Gupta MD 175 [facility] [address] [place] [address] 09/27/2024 9:55 AM EDT Office Visit [facility] [address] [facility] [address] [place] [address] Jimmy Noguera MD 300 [facility] [address] [place] [address] documented as of this encounter Procedures Procedure Name Priority Date/Time Associated Diagnosis Comments COMPLETE BLOOD COUNT Routine 03/04/2024 5:53 AM EST Chronic obstructive pulmonary disease with (acute) exacerbation (CMS/HCC) Essential (primary) hypertension BASIC METABOLIC PANEL Routine 03/04/2024 5:53 AM EST Chronic obstructive pulmonary disease with (acute) exacerbation (CMS/HCC) Essential (primary) hypertension documented in this encounter Results * (ABNORMAL) Complete blood count (03/04/2024 5:53 AM EST) WBC 8.1 4.8 - 10.8 K/mcL LAB HEMETOLOGY METHOD 03/04/2024 9:32 AM [facility] RBC 2.90(L) 3.80 - 4.80 M/mcL LAB HEMETOLOGY METHOD 03/04/2024 9:32 AM [facility] Hemoglobin 7.8(L) 11.5 - 16.0 g/dL LAB HEMETOLOGY METHOD 03/04/2024 9:32 AM [facility] Hematocrit 26.8(L) 35.0 - 47.0 % LAB HEMETOLOGY METHOD 03/04/2024 9:32 AM [facility] MCV 93.1 79.0 - 98.0 FL LAB HEMETOLOGY METHOD 03/04/2024 9:32 AM [facility] MCH 27.1 27.0 - 32.0 pcg LAB HEMETOLOGY METHOD 03/04/2024 9:32 AM [facility] MCHC 29.1(L) 32.0 - 37.0 g/dL LAB HEMETOLOGY METHOD 03/04/2024 9:32 AM [facility] RDW 17.5(H) 11.0 - 15.0 % LAB HEMETOLOGY METHOD 03/04/2024 9:32 AM [facility] Platelets 311 130 - 400 K/mcL LAB HEMETOLOGY METHOD 03/04/2024 9:32 AM [facility] MPV 11.2(H) 7.0 - 11.0 FL LAB HEMETOLOGY METHOD 03/04/2024 9:32 AM [facility] NRBC 0.0 <1.0 % LAB HEMETOLOGY METHOD 03/04/2024 9:32 AM [facility] NRBC Absolute 0.00 <0.10 K/mcL LAB HEMETOLOGY METHOD 03/04/2024 9:32 AM [facility] Blood Venous blood specimen / Unknown Venipuncture / Unknown 03/04/2024 5:53 AM EST 03/04/2024 9:22 AM EST us Wally Flood MD LAB BLOOD ORDERABLES Final Resu lt [facility] [address] [place] [address], [place] [phone] * (ABNORMAL) Basic metabolic panel (03/04/2024 5:53 AM EST) Sodium 138 133 - 145 mmol/L LAB CHEMISTRY METHOD 03/04/2024 9:38 AM [facility] Potassium 4.2 3.5 - 5.5 mmol/L LAB CHEMISTRY METHOD 03/04/2024 9:38 AM [facility] Chloride 103 96 - 110 mmol/L LAB CHEMISTRY METHOD 03/04/2024 9:38 AM [facility] CO2 26 21 - 32 mmol/L LAB CHEMISTRY METHOD 03/04/2024 9:38 AM [facility] Anion Gap 9 3 - 11 LAB CHEMISTRY METHOD 03/04/2024 9:38 AM [facility] Glucose 107(H) 70 - 100 mg/dL LAB CHEMISTRY METHOD 03/04/2024 9:38 AM [facility] BUN 27(H) 5 - 25 mg/dL LAB CHEMISTRY METHOD 03/04/2024 9:38 AM [facility] Creatinine 2.58(H) 0.50 - 1.10 mg/dL LAB CHEMISTRY METHOD 03/04/2024 9:38 AM [facility] eGFR 18(L) >=60 mL/min/1. 73m2 LAB CHEMISTRY METHOD 03/04/2024 9:38 AM EST [facility] Comment:Calculation based on the??Chronic Kidney Disease Epidemiology Collaboration (CKD-EPI) equation refit??without adjustment for race. BUN/Creatinine Ratio 10.5 LAB CHEMISTRY METHOD 03/04/2024 9:38 AM EST [facility] Calcium 9.7 8.5 - 10.5 mg/dL LAB CHEMISTRY METHOD 03/04/2024 9:38 AM EST [facility] Blood Venous blood specimen / Unknown Venipuncture / Unknown 03/04/2024 5:53 AM EST 03/04/2024 8:59 AM EST us Wally Flood MD LAB BLOOD ORDERABLES Final Resu lt [facility] [address] [place] [address], documented in this encounter Visit Diagnoses Diagnosis Chronic obstructive pulmonary disease with (acute) exacerbation (CMS/HCC) Essential (primary) hypertension Unspecified essential hypertension documented in this encounter Additional Health Concerns Infection Onset Date Last Indicated Resolved Time Respiratory Rule-Out 03/31/2024 03/31/2024 025 5:53 PM EST COVID-19 Rule-Out 03/31/2024 03/31/2024 03/31/2024 5:53 PM EST documented as of this encounter Care Teams Reinstatement Clerk Relationship Specialty Start Date End Date Mason Hoffman MD [address] [place] [address] PCP - General Internal Medicine 02/05/24 documented as of this encounter
--- OUTSIDE RECORDS SUMMARY | 2024-04-20 05:52 | XMS_ITS | Clinical Summary ---
Author Organization [facility] Address [address] [place] [address] Phone Care Team Providers Care Subscription Crew Leader Name Role Phone Mason Hoffman MD Primary Care Provider [phone] Allergies Active Allergy Reactions Criticality Noted Date Comments Gabapentin Hallucinations 02/05/2024 Visual and auditory hallucinations Medications atorvastatin (LIPITOR) 40 mg tablet Take 1 tablet (40 mg total) by mouth 1 (one) time each day. Active budesonide (PULMICORT) 0.5 mg/2 mL nebulizer solution Take 2 mL (0.5 mg total) by nebulization 2 (two) times a day. 024 Active polyethylene glycol (MIRALAX) 17 gram packet Take 17 g by mouth 1 (one) time each day. 90 packet 025 Active senna-docusate (PERICOLACE) 8.6-50 mg per tablet Take 1 tablet by mouth 1 (one) time each day. 90 each 025 2025 Active iron,carbonyl-vit lomeli C 65 mg iron- 125 mg tablet,delayed release (DR/EC) Take 1 tablet by mouth 1 (one) time each day. 022 Active pantoprazole (PROTONIX) 40 mg EC tablet Take 1 tablet (40 mg total) by mouth 1 (one) time each day. 025 Active furosemide (LASIX) 20 mg tablet Take 1 tablet (20 mg total) by mouth 1 (one) time each day. HOLD DUE TO KENDRA. REPEAT LABS AND RESUME ONCE CREATININE IMPROVED 025 2024 Active ipratropium-albut Augusto (DUONEB) 0.5-2.5 mg/3 mL nebulizer solutionIndicatio ns:COPD exacerbation (CMS/HCC),Acute on chronic hypoxic respiratory failure (CMS/HCC) Take 3 mL by nebulization 4 (four) times a day for 5 days. Change to QID for the next 5 days then go back to QID PRN SOB/wheezing Active metoprolol succinate (TOPROL-XL) 50 mg 24 hr tablet Take 1 tablet (50 mg total) by mouth 1 (one) time each day. Hold for SBP<100, HR<60 Active aspirin 81 mg EC tablet Take 1 tablet (81 mg total) by mouth 1 (one) time each day. 023 2024 Discontinued furosemide (LASIX) 20 mg tablet Take 1 tablet (20 mg total) by mouth 1 (one) time each day. 022 2024 Discontinued clonazePAM (KlonoPIN) 0.25 mg disintegrating tablet Take 1 tablet (0.25 mg total) by mouth 2 (two) times a day if needed for anxiety for up to 7 days. Max Daily Amount: 0.5 mg 024 2024 Discontinued(S top Taking at Discharge) metoprolol succinate (TOPROL-XL) 50 mg 24 hr tablet TAKE 1 TABLET BY MOUTH DAILY 90 tablet 025 2024 Discontinued metoprolol succinate (TOPROL-XL) 50 mg 24 hr tablet Take 1 tablet (50 mg total) by mouth 1 (one) time each day. 022 2024 Discontinued amLODIPine (NORVASC) 5 mg tablet Take 1 tablet (5 mg total) by mouth 1 (one) time each day. 025 2024 Discontinued(S top Taking at Discharge) ipratropium-albut Augusto (DUONEB) 0.5-2.5 mg/3 mL nebulizer solution Take 3 mL by nebulization every 4 (four) hours if needed for wheezing or shortness of breath. 2024 Discontinued doxycycline (VIBRAMYCIN) 100 mg capsule Take 1 capsule (100 mg total) by mouth 2 (two) times a day for 5 days. Take with at least 8 ounces (large glass) of water, do not lie down for 30 minutes after. Administer 2 hours before or after multivitamins, antacids, or other products containing polyvalent cations (i.e., calcium, iron, magnesium, selenium, zinc). 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 03/26/2024 Gastrointestinal hemorrhage with hematemesis Nonrheumatic mitral valve stenosis 03/26/2024 Nonrheumatic aortic valve stenosis 03/26/2024 Chronic obstructive pulmonary disease 03/23/2024 Stage 4 chronic kidney disease 03/23/2024 Status post placement of cardiac pacemaker 03/23 Primary hypertension 03/23/2024 Third degree AV block 02/06/2024 Resolved Problems Problem Noted Date Diagnosed Date Resolved Date Third degree heart block 02/06/2024 Encounters Date Type Department Care Team Description 04/02/2024 Telephone [facility] [address] [place] [phone] Mason Hoffman MD fax order ([facility] Fax Order [id number]) 03/31/2024 3:16 PM EST - 04/02/2024 3:00 PM EST Hospital Encounter [facility] [address] [place] [phone] Lila Smith MD Patel, Parth B, MD Flores, Carlos M, MD Kela, Nicolas Islas MD Dyspnea, unspecified type (Primary Dx); COPD exacerbation (CMS/HCC); Shortness of breath; Weakness; Acute on chronic hypoxic respiratory failure (CMS/HCC); KENDRA (acute kidney injury) (CMS/HCC) Discharge Disposition: Jail Facility 03/30/2024 Telephone [facility]s - [facility] [address] [place], [place] [phone] Mason Hoffman MD fax order ([facility] Fax Order [id number]) 03/26/2024 8:10 AM EST Telemedicine [facility] [address] [facility] [address] [place] [phone] Alma Hanson NP Status post placement of cardiac pacemaker (Primary Dx) 03/26/2024 Billing Patient Not Present 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 - [facility] [address] [place], [place] [phone] Mason Hoffman MD Encounter for change or removal of nonsurgical [...] unspecified CKD stage; Anxiety disorder, unspecified type; [facility] current use of aspirin; Dependence on supplemental oxygen 03/24/2024 Telephone [facility] [address] [place] [phone] [place], [place] 03/23/2024 10:30 AM EST Telemedicine 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 [address] [facility] [place] [place] [phone] Mason Hoffman MD Hospital discharge follow-up (Primary Dx); Chronic obstructive pulmonary disease, unspecified COPD type (CMS/HCC); Stage 4 chronic kidney disease (CMS/HCC); Third degree AV block (CMS/HCC); Status post placement of cardiac pacemaker; Primary hypertension 03/22/2024 Telephone [facility] [place] [phone] Mason Hoffman MD Request For Order(s) ([facility] [id number]) 03/19/2024 Telephone [facility] [address] [place], [place] [address] [place] [phone] Mason Hoffman MD PROVIDER CALLBACK 03/18/2024 Telephone [facility] [address] [place] [address], [place] [phone] Mason Hoffman MD Request For Order(s) ([facility] [id number],) 03/18/2024 Telephone [facility] [address] [place] [address] [phone] Mason Hoffman MD Request For Order(s) ([facility] [id number]) 03/17/2024 Telephone [facility] [address] [place], [place] [address] [phone] Mason Hoffman MD Request For Order(s) ([facility] [id number]) 03/12/2024 Lab Requisition [facility] [address] [place] [address] Wally Flood MD Chronic obstructive pulmonary disease with (acute) exacerbation (CMS/[facility]); Essential (primary) hypertension 03/11/2024 3:30 PM EST Ancillary Procedure [facility] [address] [place] [address] Encounter for adjustment or management of cardiac device 03/11/2024 Telephone [facility] [address] [place] [address] Alma Hanson NP 03/10/2024 Lab Requisition [facility] [address] [place] [phone] Wally Flood MD Chronic obstructive pulmonary disease with (acute) exacerbation (CMS/HCC); Essential (primary) hypertension 03/10/2024 Telephone 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 - [facility] [address] [place], [place] [phone] Mason Hoffman MD Hospital Follow-up ([facility] ) 03/06/2024 Lab Requisition [facility] [address] [place] [phone] Wally Flodo MD Chronic obstructive pulmonary disease with (acute) exacerbation (CMS/HCC); Essential (primary) hypertension 03/03/2024 Lab Requisition [facility] [address] [place] [phone] Wally Flood MD Chronic obstructive pulmonary disease with (acute) exacerbation (CMS/HCC); Essential (primary) hypertension 02/27/2024 Lab Requisition [facility] [address] [place] [phone] Wally Flood MD Chronic obstructive pulmonary disease with (acute) exacerbation (CMS/HCC); Essential (primary) hypertension 02/27/2024 Lab Requisition [facility] [address] [place] [phone] Wally Flood MD Atrioventricular block, complete (CMS/HCC) 02/24/2024 Lab Requisition [facility] [address] [place] [phone] Wally Flood MD Chronic obstructive pulmonary disease with (acute) exacerbation (CMS/HCC); Essential (primary) hypertension 02/24/2024 Telephone 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 [address] [place], [place] [phone] Mason Hoffman MD Request For Order(s) 02/21/2024 Lab Requisition [facility] [address] [place] [phone] Wally Flood MD Chronic obstructive pulmonary disease with (acute) exacerbation (CMS/HCC); Essential (primary) hypertension 02/20/2024 8:43 AM EST - 02/20/2024 5:14 PM EST Emergency [facility] Emergency [address] [place] [phone] Geraldo Edmonds MD Hemoptysis (Primary Dx); Acute bronchitis, unspecified organism Discharge Disposition: Home or Self Care 02/17/2024 Lab Requisition [facility] [address] [place] [phone] Wally Flood MD Chronic obstructive pulmonary disease with (acute) exacerbation (CMS/HCC); Essential (primary) hypertension 02/17/2024 Lab Requisition [facility] [address] [place] [phone] Wally Flood MD Chronic obstructive pulmonary disease with (acute) exacerbation (CMS/HCC) 02/15/2024 Lab Requisition [facility] [address] [place] [phone] Wlaly Flood MD Unspecified bacterial pneumonia 02/14/2024 Lab Requisition [facility] [address] [place] [phone] Wally Flood MD Chronic obstructive pulmonary disease with (acute) exacerbation (CMS/HCC); Essential (primary) hypertension 02/13/2024 Lab Requisition [facility] [address] [place] [phone] Wally Flood MD Essential (primary) hypertension; Chronic obstructive pulmonary disease with (acute) exacerbation (CMS/HCC) 02/06/2024 4:55 PM EST - 02/06/2024 6:55 PM EST Surgery [facility] Cardiac Elevator Pilot [address] [place] [phone] Jimmy Noguera MD Insert PPM dual chamber 02/05/2024 11:01 PM EST - 02/12/2024 2:30 PM EST Hospital Encounter [facility] Medical Surgical Unit [address] [place] [address] Lila Smith MD Bonacum, Julia T, MD Rasul, Yar M, MD Third degree heart block ([facility]) (Primary Dx); Symptomatic bradycardia; Acute exacerbation of chronic obstructive pulmonary disease (COPD) ([facility]); Acute on chronic renal insufficiency; CHB (complete heart block) ([facility]) Discharge Disposition: Jail Facility from Last 3 Months Surgical History Surgery Date Site/Laterality Comments CATARACT EXTRACTION W/ INTRAOCULAR LENS IMPLANT Bilateral PROCEDURE:CATARACT EXTRACTION W/ INTRAOCULAR LENS IMPLANT OVARIAN CYST SURGERY PROCEDURE:OVARIAN CYST SURGERY APPENDECTOMY PROCEDURE:APPENDECTOMY AORTA - BILATERAL FEMORAL ARTERY BYPASS GRAFT Right PROCEDURE:FEMORAL ARTERY - POPLITEAL ARTERY BYPASS GRAFT AORTA - BILATERAL FEMORAL ARTERY BYPASS GRAFT 11/20/2017 Right PROCEDURE:FEMORAL ARTERY - POPLITEAL ARTERY BYPASS GRAFT;COMMENT:Procedure: REVISION OF RIGHT POPLITEAL BYPASS AND ENDARTERECTOMY OF RIGHT FEMORAL ARTERY; Surgeon: Can Tripathi MD; Location: [facility]; Service: Vascular; Laterality: Right; UPPER GASTROINTESTINAL ENDOSCOPY 09/25/2017 N/A PROCEDURE:UPPER GASTROINTESTINAL ENDOSCOPY;COMMENT:Procedure: UPPER ENDOSCOPY-EGD/Biopsy; Surgeon: Rick Molina MD; Location: [facility]; Service: Gastroenterology; Laterality: N/A; COLONOSCOPY 09/25/2017 N/A PROCEDURE:COLONOSCOPY;COMMENT :Procedure: COLONOSCOPY? BSF/Biopsy and polypectomy; Surgeon: Rick Molina MD; Location: [facility] END[facility]; Service: Gastroenterology; Laterality: N/A; OTHER SURGICAL HISTORY PROCEDURE: [place] BYPASS W/VEIN FEMORAL-FEMORAL Medical History Medical History Date Comments Hypertension DX:Hypertension Claudication ([facility]) 11/2016 DX:Claudi cation ([facility]) Hyperlipidemia 2016 DX:Hyperlipidemi a COPD (chronic obstructive pu lmonary disease) ([facility]) 2016 DX:COPD (chronic obstructive pulmonary disease) ([facility]) Anemia DX:Anemia HTN (hypertension) 08/31/2021 DX:HTN (hyper tension) HLD (hyperlipidemia) 08/31/2021 DX:HLD (hyp erlipidemia) PAD (peripheral artery disea se) ([facility]) 08/31/2021 DX:PAD (peripheral artery di sease) ([facility]) COPD (chronic obstructive pu lmonary disease) ([facility]) 08/31/2021 DX:COPD (chronic obstructive pulmonary disease) ([facility]) On supplemental oxygen therapy 08/31/2021 D X:On supplemental oxygen therapy CHF (congestive heart failur e) ([facility]) 08/31/2021 DX:CHF (congestive heart ryan lure) ([facility]) Moderate aortic stenosis 08/31/2021 DX:Mode rate aortic stenosis Moderate mitral stenosis 08/31/2021 DX:Mode rate mitral stenosis Family History Medical History Relation Name Comments Coronary artery disease Brother 1 No Known Problems Brother 2 No Known Problems Daughter Coronary artery disease Father Heart attack Father Hypertension Mother Stroke Mother Mental illness Son 1 deficiences f rom car accident Stroke Son 1 No Known Problems Son 2 Relation Name Status Comments Brother 1 Alive Brother 2 Alive Brother 3 Daughter Alive Father Mother Son 1 Alive Son 2 Alive Social History Tobacco Use Types Packs/Day Years [...] ed Within the last 3 months, ho mark many times did you visit the emergency [...] for your loved ones. For example, child and adolescent psychiatrist or elderly care for an older adult? [...] Orientation Straight 02/06/2024 5: 07 AM EST Obstetrics History Last Filed Vital Signs Vital Sign Reading Time Taken Comments Blood Pressure 128/50 04/02/2024 1:35 PM EST Pulse 104 04/02/2024 1:35 PM EST Temperature 36.2 ??C (97.2 ??F) 04/02/2024 1:35 PM ES T Respiratory Rate 19 04/02/2024 1:35 PM EST Oxygen Saturation 98% 04/02/2024 1:35 PM EST Inhaled Oxygen Concentration - - Weight 69.7 kg (153 lb 9.6 oz) 04/02/2024 6:00 A M EST Height 160 cm (5' 3 ) 03/31/2024 3:33 PM EST Body Mass Index 27.21 03/31/2024 3:33 PM EST Plan of Treatment Upcoming Encounters Date Type Department Care Team (Late st Contact Info) Description 04/30/2024 3:00 PM EST Consult Pulmonolgy - [place] [address] [facility] [address] [place] [phone] Guille Gupta MD [address] [facility] [address] [place] [address] 09/27/2024 9:55 AM EDT Office Visit [facility] - [facility] [address] [facility] [address] [place] [phone] Jimmy Noguera MD [address] [facility] [address] [place] [address] Health Maintenance Due Date Last Done Comments COVID-19 Vaccine (#1) 1942 Pneumococcal Vaccine: 50+ Years (1 of 2 - PCV) 02/27/1956 Zoster Vaccines (1 of 2) 1987 RSV Immunization Patients 60+ Years Old (1 - 1-dose 75+ series) 02/27/2012 Osteoporosis Screening (Bone Density Screening) 02/01/2022 Medicare Annual Wellness Visit 07/30/2022 07/30/2021 Influenza Vaccine (#1) 2023 Depression Screening 03/21/2025 03/21/2024, 12/01/19 24 Social Influencers of Health Screening 03/23/2025 03/23/2024 Falls Risk Assessment 04/02/2025 04/02/2024 Hypertension/CHF/CAD Annual BMP Blood Test 04/02/2025 04/02/2024, 03/31/2024, 03/11/2024, Additional history exists Cholesterol Screening (Lipid Panel) 09/13/2027 09/12/2022, 11/07/2017 DTaP,Tdap,and Td Vaccines (2 - Td or Tdap) 06/18/2028 06/18/2018 HIB Vaccines Aged Out No longer eligi ble based on patient's age to complete this topic HPV Vaccines Aged Out No longer eligi ble based on patient's age to complete this topic Hepatitis A Vaccines Aged Out No long er eligible based on patient's age to complete this topic Hepatitis B Vaccines Aged Out No long er eligible based on patient's age to complete this topic IPV Vaccines Aged Out No longer eligi ble based on patient's age to complete this topic MMR Vaccines Aged Out No longer eligi ble based on patient's age to complete this topic Meningococcal ACWY Vaccine Aged Out N o longer eligible based on patient's age to complete this topic Meningococcal B Vacine Aged Out No lo nger eligible based on patient's age to complete this topic RSV Immunization Patients Under 20 months Aged Out No longer eligible based on patient's age to complete this topic Varicella Vaccines Aged Out No longer eligible based on patient's age to complete this topic Medical Devices Implanted Type Area Sourcing Analyst Device Identifier Shelf Expiration Date Model / Serial / Lot Lead Pcmk Tendril Sts [id number] - [id number] - [id number] Implanted:Qty: 1 on 02/06/2024 by Jimmy Noguera MD at [facility] Cardiac Lead Left: Chest [facility] 07/24/2026 2088TC/58 / [id number] / Lead Pcmk Tendril Sts [id number] - [id number] - [id number] Implanted:Qty: 1 on 02/06/2024 by Jimmy Noguera MD at [facility] Cardiac Lead Left: Chest [facility] 09/23/2026 2088TC/52 / [id number] / Pcmkr Assurity Mri Dr-Rf Dual - [id number] - [id number] Implanted:Qty: 1 on 02/06/2024 by Jimmy Noguera MD at [facility] Cardiac Pacemaker Left: Chest [facility] 04/23/2025 [id number] / [id number] / Abbt-Stju Assurity Mri [id number] Implanted:01/24 (Quantity not on file) Cardiac Pacemaker [facility] ASSURITY MRI [id number] / [id number] / Procedures Procedure Name Priority Date/Time Associated Diagnosis Comments CBC WITH AUTO DIFFERENTIAL Routine 04/02/2024 6:46 AM EST CBC AND DIFFERENTIAL Routine 04/02/2024 6:46 AM EST MAGNESIUM Routine 04/02/2024 6:46 AM EST BASIC METABOLIC PANEL Routine 04/02/2024 6:46 AM EST ECG 12-LEAD Routine 04/01/2024 9:42 AM EST TROPONIN I HIGH SENSITIVITY STAT 04/01/2024 9:36 AM EST VENOUS BLOOD GAS STAT 04/01/2024 9:36 AM EST ECG ANNOTATED 04/01/2024 CT ANGIO CHEST WO AND/OR W CONTRAST STAT 03/31/2024 8:57 PM EST Dyspnea, unspecified type XR CHEST 2 VIEWS STAT 03/31/2024 4:16 PM EST RESPIRATORY VIRUS PANEL MOLECULAR STUDY STAT 03/31/2024 4:02 PM EST ECG 12-LEAD STAT 03/31/2024 4:01 PM EST TROPONIN I HIGH SENSITIVITY STAT 03/31/2024 4:00 PM EST B-TYPE NATRIURETIC PEPTIDE STAT 03/31/2024 4:00 PM EST CBC WITH AUTO DIFFERENTIAL STAT 03/31/2024 3:37 PM EST BASIC METABOLIC PANEL STAT 03/31/2024 3:37 PM EST CBC AND DIFFERENTIAL STAT 03/31/2024 3:37 PM EST [place]ARDIAC [place]ICE [place] [facility] [place] Rout[place] 03/12/2024 7:02 AM EST Encounter for adjustment or management of cardiac device BASIC METABOLIC PANEL Routine 03/11/2024 5:23 AM EST Chronic obstructive pulmonary disease with (acute) exacerbation (CMS/HCC) Essential (primary) hypertension COMPLETE BLOOD COUNT Routine 03/11/2024 5:23 AM EST Chronic obstructive pulmonary disease with (acute) exacerbation (CMS/HCC) Essential (primary) hypertension COMPLETE BLOOD COUNT Routine 03/08/2024 5:46 AM EST Chronic obstructive pulmonary disease with (acute) exacerbation (CMS/HCC) Essential (primary) hypertension COMPREHENSIVE METABOLIC PANEL Routine 03/08/2024 5:44 AM EST Chronic obstructive pulmonary disease with (acute) exacerbation (CMS/HCC) Essential (primary) hypertension COMPLETE BLOOD COUNT Routine 03/04/2024 5:53 AM EST Chronic obstructive pulmonary disease with (acute) exacerbation (CMS/HCC) Essential (primary) hypertension BASIC METABOLIC PANEL Routine 03/04/2024 5:53 AM EST Chronic obstructive pulmonary disease with (acute) exacerbation (CMS/HCC) Essential (primary) hypertension COMPREHENSIVE METABOLIC PANEL Routine 03/01/2024 6:30 AM EST Chronic obstructive pulmonary disease with (acute) exacerbation (CMS/HCC) Essential (primary) hypertension COMPLETE BLOOD COUNT Routine 03/01/2024 6:30 AM EST Chronic obstructive pulmonary disease with (acute) exacerbation (CMS/HCC) Essential (primary) hypertension COMPLETE BLOOD COUNT Routine 02/28/2024 8:04 AM EST Atrioventricular block, complete (CMS/HCC) BASIC METABOLIC PANEL Routine 2024 5:20 AM EST Chronic obstructive pulmonary disease with (acute) exacerbation (CMS/HCC) Essential (primary) hypertension COMPLETE BLOOD COUNT Routine 2024 5:20 AM EST Chronic obstructive pulmonary disease with (acute) exacerbation (CMS/HCC) Essential (primary) hypertension COMPREHENSIVE METABOLIC PANEL Routine 02/23/2024 6:27 AM EST Chronic obstructive pulmonary disease with (acute) exacerbation (CMS/HCC) Essential (primary) hypertension COMPLETE BLOOD COUNT Routine 02/23/2024 6:27 AM EST Chronic obstructive pulmonary disease with (acute) exacerbation (CMS/HCC) Essential (primary) hypertension XR CHEST 2 VIEWS STAT 02/20/2024 11:[address] ABDOMEN PELVIS WO CONTRAST STAT 02/20/2024 11:05 AM EST ECG 12-LEAD Routine 02/20/2024 10:25 AM EST ECG 12-LEAD STAT 02/20/2024 9:01 AM EST CBC WITH AUTO DIFFERENTIAL STAT 02/20/2024 8:59 AM EST TYPE AND SCREEN STAT 02/20/2024 8:59 AM EST BASIC METABOLIC PANEL STAT 02/20/2024 8:59 AM EST CBC AND DIFFERENTIAL STAT 02/20/2024 8:59 AM EST ECG ANNOTATED 02/20/2024 BASIC METABOLIC PANEL Routine 02/19/2024 5:55 AM EST Chronic obstructive pulmonary disease with (acute) exacerbation (CMS/HCC) Essential (primary) hypertension COMPLETE BLOOD COUNT Routine 02/19/2024 5:55 AM EST Chronic obstructive pulmonary disease with (acute) exacerbation (CMS/HCC) Essential (primary) hypertension [id number], RSV, FLU A AND B QUALITATIVE RT-PCR, LOCAL REFERENCE LAB Routine 02/17/2024 12:00 AM EST Chronic obstructive pulmonary disease with (acute) exacerbation (CMS/HCC) COMPREHENSIVE METABOLIC PANEL Routine 02/16/2024 6:49 AM EST Chronic obstructive pulmonary disease with (acute) exacerbation (CMS/HCC) Essential (primary) hypertension COMPLETE BLOOD COUNT Routine 02/16/2024 6:49 AM EST Chronic obstructive pulmonary disease with (acute) exacerbation (CMS/HCC) Essential (primary) hypertension COMPLETE BLOOD COUNT Routine 02/15/2024 6:26 AM EST Unspecified bacterial pneumonia COMPREHENSIVE METABOLIC PANEL Routine 02/13/2024 4:59 AM EST Essential (primary) hypertension Chronic obstructive pulmonary disease with (acute) exacerbation (CMS/HCC) COMPLETE BLOOD COUNT Routine 02/13/2024 4:59 AM EST Essential (primary) hypertension Chronic obstructive pulmonary disease with (acute) exacerbation (CMS/HCC) POCT GLUCOSE BLOOD Routine 02/12/2024 11 :16 AM EST POCT GLUCOSE BLOOD Routine 02/12/2024 7: 39 AM EST CBC WITH AUTO DIFFERENTIAL Routine 02/12/2024 5:13 AM EST BASIC METABOLIC PANEL Routine 02/12/2024 5:13 AM EST CBC AND DIFFERENTIAL Routine 02/12/2024 5:13 AM EST POCT GLUCOSE BLOOD Routine 02/11/2024 8: 52 PM EST POCT GLUCOSE BLOOD Routine 02/11/2024 4: 20 PM EST XR CHEST 1 VIEW Routine 02/11/2024 2:39 PM EST POCT GLUCOSE BLOOD Routine 02/11/2024 11 :22 AM EST POCT GLUCOSE BLOOD Routine 02/11/2024 8: 31 AM EST OXYGEN THERAPY, ADULT Routine 02/11/2024 8:02 AM EST CBC WITH AUTO DIFFERENTIAL Routine 02/11/2024 5:42 AM EST BASIC METABOLIC PANEL Routine 02/11/2024 5:42 AM EST CBC AND DIFFERENTIAL Routine 02/11/2024 5:42 AM EST OXYGEN THERAPY, ADULT Routine 02/10/2024 8:01 PM EST POCT GLUCOSE BLOOD Routine 02/10/2024 7: 25 PM EST POCT GLUCOSE BLOOD Routine 02/10/2024 4: 26 PM EST POCT GLUCOSE BLOOD Routine 02/10/2024 10 :51 AM EST POCT GLUCOSE BLOOD Routine 02/10/2024 8: 09 AM EST OXYGEN THERAPY, ADULT Routine 02/10/2024 8:02 AM EST CBC WITH AUTO DIFFERENTIAL Routine 02/10/2024 6:08 AM EST BASIC METABOLIC PANEL Routine 02/10/2024 6:08 AM EST CBC AND DIFFERENTIAL Routine 02/10/2024 6:08 AM EST SODIUM, URINE, RANDOM Routine 02/09/2024 10:42 PM EST POCT GLUCOSE BLOOD Routine 02/09/2024 8: 48 PM EST OXYGEN THERAPY, ADULT Routine 02/09/2024 8:01 PM EST POCT GLUCOSE BLOOD Routine 02/09/2024 5: 01 PM EST POCT GLUCOSE BLOOD Routine 02/09/2024 11 :16 AM EST POCT GLUCOSE BLOOD Routine 02/09/2024 8: 59 AM EST OXYGEN THERAPY, ADULT Routine 02/09/2024 8:02 AM EST CBC WITH AUTO DIFFERENTIAL Routine 02/09/2024 6:16 AM EST BASIC METABOLIC PANEL Routine 02/09/2024 6:16 AM EST CBC AND DIFFERENTIAL Routine 02/09/2024 6:16 AM EST OXYGEN THERAPY, ADULT Routine 02/08/2024 8:01 PM EST OXYGEN THERAPY, ADULT Routine 02/08/2024 8:01 AM EST CBC WITH AUTO DIFFERENTIAL Routine 02/08/2024 6:37 AM EST BASIC METABOLIC PANEL Routine 02/08/2024 6:37 AM EST CBC AND DIFFERENTIAL Routine 02/08/2024 6:37 AM EST OXYGEN THERAPY, ADULT Routine 02/08/2024 2:26 AM EST OXYGEN THERAPY, ADULT Routine 02/08/2024 2:26 AM EST OXYGEN THERAPY, ADULT Routine 02/08/2024 2:26 AM EST POCT GLUCOSE BLOOD Routine 02/07/2024 7: 21 PM EST POCT GLUCOSE BLOOD Routine 02/07/2024 5: [address] ANGIO CHEST WO AND/OR W CONTRAST Routine 02/07/2024 4:08 PM EST Acute exacerbation of chronic obstructive pulmonary disease (COPD) ([facility]) POCT GLUCOSE BLOOD Routine 02/07/2024 11 :53 AM EST POCT GLUCOSE BLOOD Routine 02/07/2024 7: 29 AM EST XR CHEST 1 VIEW Routine 02/07/2024 6:07 AM EST CALCIUM, IONIZED Routine 02/07/2024 5:43 AM EST BASIC METABOLIC PANEL Routine 02/07/2024 5:43 AM EST PHOSPHORUS Routine 02/07/2024 5:43 AM EST MAGNESIUM Routine 02/07/2024 5:43 AM EST CBC WITH AUTO DIFFERENTIAL Routine 02/07/2024 5:42 AM EST CBC AND DIFFERENTIAL Routine 02/07/2024 5:42 AM EST POCT GLUCOSE BLOOD Routine 02/07/2024 1: 10 AM EST CULTURE BLOOD Routine 02/06/2024 10:48 PM EST POCT GLUCOSE BLOOD Routine 02/06/2024 9: 39 PM EST OXYGEN THERAPY, ADULT Routine 02/06/2024 8:01 PM EST POCT GLUCOSE BLOOD Routine 02/06/2024 5: 26 PM EST ECG 12-LEAD Routine 02/06/2024 4:53 PM EST ELECTROPHYSIOLOGY PROCEDURE Routine 02/06/2024 2:40 PM EST CHB (complete heart block) (CMS/HCC) OXYGEN THERAPY, ADULT Routine 02/06/2024 10:17 AM EST OXYGEN THERAPY, ADULT Routine 02/06/2024 10:17 AM EST OXYGEN THERAPY, ADULT Routine 02/06/2024 10:17 AM EST ECG 12-LEAD STAT 02/06/2024 7:43 AM EST TRANSTHORACIC ECHOCARDIOGRAM (TTE) COMPLETE W/ CONTRAST STAT 02/06/2024 7:37 AM EST Third degree heart block (CMS/HCC) PROTHROMBIN TIME WITH INR Routine 02/06/2024 6:44 AM EST BERGERON URINE CULTURE TUBE STAT 02/06/20 5:33 AM EST URINALYSIS WITH REFLEX MICROSCOPIC AND CULTURE STAT 02/06/2024 5:33 AM EST URINALYSIS WITH REFLEX MICROSCOPIC AND CULTURE STAT 02/06/2024 5:33 AM EST THYROID STIMULATING HORMONE STAT 02/06/2024 4:17 AM EST XR CHEST 1 VIEW STAT 02/06/2024 1:10 AM EST B-TYPE NATRIURETIC PEPTIDE STAT 02/06/2024 12:39 AM EST TROPONIN I HIGH SENSITIVITY STAT 02/06/2024 12:39 AM EST ECG OUTSIDE 02/06/2024 ECG ANNOTATED 02/06/2024 RESPIRATORY VIRUS PANEL MOLECULAR STUDY STAT 02/05/2024 11:34 PM EST CBC WITH AUTO DIFFERENTIAL STAT 02/05/2024 11:20 PM EST TROPONIN I HIGH SENSITIVITY STAT 02/05/2024 11:20 PM EST MAGNESIUM STAT 02/05/2024 11:20 PM EST BASIC METABOLIC PANEL STAT 02/05/2024 11:20 PM EST CBC AND DIFFERENTIAL STAT 02/05/2024 11:20 PM EST MA CRITICAL CARE 30-74 MINUTES Routine 02/05/2024 10:56 PM EST HM DEPRESSION SCREENING Routine 12/01/2023 LIPID PANEL Routine 09/12/2022 from Last 3 Months or Most Recently Relevant to Health Maintenance Results * (ABNORMAL) CBC auto differential (04/02/2024 6:46 AM EST) Only the most recent of10 resultswithin the time period is included. WBC 8.7 4.8 - 10.8 K/mcL LAB HEMETOLOGY METHOD 04/02/2024 7:43 AM EST [facility] RBC 3.40(L) 3.80 - 4.80 M/mcL LAB HEMETOLOGY METHOD 04/02/2024 7:43 AM EST [facility] Hemoglobin 8.9(L) 11.5 - 16.0 g/dL LAB HEMETOLOGY METHOD 04/02/2024 7:43 AM [facility] Hematocrit 30.5(L) 35.0 - 47.0 % LAB HEMETOLOGY METHOD 04/02/2024 7:43 AM [facility] MCV 90.2 79.0 - 98.0 FL LAB HEMETOLOGY METHOD 04/02/2024 7:43 AM [facility] MCH 26.3(L) 27.0 - 32.0 pcg LAB HEMETOLOGY METHOD 04/02/2024 7:43 AM [facility] MCHC 29.2(L) 32.0 - 37.0 g/dL LAB HEMETOLOGY METHOD 04/02/2024 7:43 AM [facility] RDW 15.3(H) 11.0 - 15.0 % LAB HEMETOLOGY METHOD 04/02/2024 7:43 AM [facility] Platelets 280 130 - 400 K/mcL LAB HEMETOLOGY METHOD 04/02/2024 7:43 AM [facility] MPV 11.7(H) 7.0 - 11.0 FL LAB HEMETOLOGY METHOD 04/02/2024 7:43 AM [facility] NRBC 0.0 <1.0 % LAB HEMETOLOGY METHOD 04/02/2024 7:43 AM [facility] NRBC Absolute 0.00 <0.10 K/mcL LAB HEMETOLOGY METHOD 04/02/2024 7:43 AM [facility] Neutrophils Relative 75.1 % LAB HEMETOLOGY METHOD 04/02/2024 7:43 AM [facility] Lymphocytes Relative 6.8 % LAB HEMETOLOGY METHOD 04/02/2024 7:43 AM [facility] Monocytes Relative 8.5 % LAB HEMETOLOGY METHOD 04/02/2024 7:43 AM [facility] Eosinophils Relative 8.9 % LAB HEMETOLOGY METHOD 04/02/2024 7:43 AM [facility] Basophils Relative 0.0 % LAB HEMETOLOGY METHOD 04/02/2024 7:43 AM [facility] Immature Granulocytes Relative 0.7 % LAB HEMETOLOGY METHOD 04/02/2024 7:43 AM [facility] Neutrophils Absolute 6.52 1.50 - 7.00 K/mcL LAB HEMETOLOGY METHOD 04/02/2024 7:43 AM [facility] Lymphocytes Absolute 0.59(L) 1.00 - 5.00 K/mcL LAB HEMETOLOGY METHOD 04/02/2024 7:43 AM [facility] Monocytes Absolute 0.74 0.20 - 1.00 K/mcL LAB HEMETOLOGY METHOD 04/02/2024 7:43 AM [facility] Eosinophils Absolute 0.77(H) 0.00 - 0.50 K/mcL LAB HEMETOLOGY METHOD 04/02/2024 7:43 AM [facility] Basophils Absolute 0.00 0.00 - 0.20 K/mcL LAB HEMETOLOGY METHOD 04/02/2024 7:43 AM [facility] Immature Granulocytes Absolute 0.06(H) 0.00 - 0.03 K/mcL LAB HEMETOLOGY METHOD 04/02/2024 7:43 AM [facility] Blood Venous blood specimen / Unknown Venipuncture / Unknown 04/02/2024 6:46 AM EST 04/02/2024 7:30 AM EST Jose Mcmahon MD LAB BLOOD ORDERABLES Final Re sult [facility] [address] [place] [address], * (ABNORMAL) Magnesium (04/02/2024 6:46 AM EST) Only the most recent of3 resultswithin the time period is included. Magnesium 1.8(L) 1.9 - 2.6 mg/dL LAB CHEMISTRY METHOD 04/02/2024 8:10 AM [facility] Blood Venous blood specimen / Unknown Venipuncture / Unknown 04/02/2024 6:46 AM EST 04/02/2024 7:31 AM EST Jose Mcmahon MD LAB BLOOD ORDERABLES Final Re sult [facility] [address] [place] [address], [place] [phone] * (ABNORMAL) Basic metabolic panel (04/02/2024 6:46 AM EST) Only the most recent of14 resultswithin the time period is included. [facility] Sodium 142 133 - 145 mmol/L LAB CHEMISTRY METHOD 04/02/2024 8:10 AM [facility] Potassium 3.2(L) 3.5 - 5.5 mmol/L LAB CHEMISTRY METHOD 04/02/2024 8:10 AM [facility] Chloride 105 96 - 110 mmol/L LAB CHEMISTRY METHOD 04/02/2024 8:10 AM [facility] CO2 32 21 - 32 mmol/L LAB CHEMISTRY METHOD 04/02/2024 8:10 AM [facility] Anion Gap 5 3 - 11 LAB CHEMISTRY METHOD 04/02/2024 8:10 AM [facility] Glucose 107(H) 70 - 100 mg/dL LAB CHEMISTRY METHOD 04/02/2024 8:10 AM [facility] BUN 19 5 - 25 mg/dL LAB CHEMISTRY METHOD 04/02/2024 8:10 AM [facility] Creatinine 2.02(H) 0.50 - 1.10 mg/dL LAB CHEMISTRY METHOD 04/02/2024 8:10 AM EST [facility] eGFR 24(L) >=60 mL/min/1. 73m2 LAB CHEMISTRY METHOD 04/02/2024 8:10 AM EST [facility] Comment:Calculation based on the??Chronic Kidney Disease Epidemiology Collaboration (CKD-EPI) equation refit??without adjustment for race. BUN/Creatinine Ratio 9.4 LAB CHEMISTRY METHOD 04/02/2024 8:10 AM EST [facility] Calcium 9.3 8.5 - 10.5 mg/dL LAB CHEMISTRY METHOD 04/02/2024 8:10 AM EST [facility] Blood Venous blood specimen / Unknown Venipuncture / Unknown 04/02/2024 6:46 AM EST 04/02/2024 7:31 AM EST Jose Mcmahon MD LAB BLOOD ORDERABLES Final Re sult [facility] [address] [place] [address], [place] [phone] * ECG 12 lead (04/01/2024 9:42 AM EST) Only the most recent of6 resultswithin the time period is included. Ventricular Rate ECG 112 BPM GEMUSE Atrial Rate 115 BPM GEMUSE QRS Duration 114 ms GEMUSE Q-T Interval 382 ms GEMUSE QTc 521 ms GEMUSE T [place] 37 degrees GEMUSE ECG Interpretation probably ??Sinus tachycardia with occasional Premature ventricular complexes Low voltage QRS Right bundle branch block Abnormal ECG When compared with ECG of 31-MAR-2024 16:01, Sinus tachycardia has replaced Electronic ventricular pacemaker Confirmed by Gregorio SPENCE, YURI ([id number]) on 04/01/2024 3:13:38 PM GEMUSE 04/01/2024 9:42 AM EST 04/01/2024 3:13 PM EST Asia ARCHER ECG ORDERABLES Final Result GEMUSE * Troponin I high sensitivity (04/01/2024 9:36 AM EST) Only the most recent of4 resultswithin the time period is included. [facility] High Sensitivity Troponin I 26 <=54 ng/L LAB CHEMISTRY METHOD 04/01/2024 10:05 AM [facility] Blood Venous blood specimen / Unknown Venipuncture / Unknown 04/01/2024 9:36 AM EST 04/01/2024 9:41 AM EST [facility] - 04/01/2024 10:05 AM EST High levels of biotin in samples may falsely decrease hsTroponin values. ??Use caution when interpreting hsTroponin results in patients taking biotin who exhibit renal impairment (eGFR <60) or in patients taking more than 20 mg/day of biotin. Geraldo Edmonds MD LAB BLOOD ORDERABLES Final Resu lt [facility] [address] [place] [address], * (ABNORMAL) Venous blood gas (04/01/2024 9:36 AM EST) [facility] pH, Solitario 7.40 7.32 - 7.42 pH 04/01/2024 9:46 AM [facility] pCO2, Solitario 52(H) 41 - 51 mmHg 04/01/2024 9:46 AM [facility] pO2, Solitario 42(H) 25 - 40 mmHg 04/01/2024 9:46 AM [facility] HCO3, Venous 29.4(H) 22.0 - 26.0 mmol/L 04/01/2024 9:46 AM [facility] O2 Sat, Solitario 75.6 % 04/01/2024 9:46 AM EST [facility] Base Excess, Solitario 6.4(H) -2.0 - 2.0 mmol/L 04/01/2024 9:46 AM EST [facility] Blood Venous blood specimen / Unknown Venipuncture / Unknown 04/01/2024 9:36 AM EST 04/01/2024 9:41 AM EST Geraldo Edmonds MD LAB BLOOD ORDERABLES Final Resu lt [facility] [address] [place] [address], [place] [phone] * ECG-Annotated (04/01/2024) Only the most recent of3 resultswithin the time period is included. us Provider Onbase ECG ORDERABLES Final Result * CT Angio Chest wo and/or w Contrast (03/31/2024 8:57 PM EST) Only the most recent of2 resultswithin the time period is included. Anatomical Region Laterality Modality Body Computed Tomogra phy 03/31/2024 10:3 5 PM EST Impressions 03/31/2024 10:35 PM EST 1. No acute pulmonary embolus. 2. Mild residual consolidation at the left lung base relative to the prior exam. This document has been electronically signed by: Thad Huerta MD on 03/31/2024 22:35:11 Narrative 03/31/2024 10:35 PM EST INDICATION: Respiratory failure CT angiography chest with contrast. 3D Postprocessing. Comparison: CT - CT ANGIO CHEST WO AND OR W CONTRAST - 02/07/24 16:07 EST Findings: The heart is normal size. RV/LV ratio is normal. Unremarkable thoracic aorta and great vessels. No aneurysm. No acute pulmonary embolus. The visualized thyroid and mediastinum are unremarkable. Biapical calcified pleural plaques. Previous right lung base dense consolidation has resolved. Previous left lung base dense consolidation has nearly completely resolved. Emphysema. The visualized upper abdomen is unremarkable. No acute fractures. Procedure Note Thad Huerta MD - 03/31/2024 INDICATION: Respiratory failure CT angiography chest with contrast. 3D Postprocessing. Comparison: CT - CT ANGIO CHEST WO AND OR W CONTRAST - 02/07/24 16:07EST Findings: The heart is normal size. RV/LV ratio is normal. Unremarkable thoracic aorta and great vessels. No aneurysm. No acute pulmonary embolus. The visualized thyroid and mediastinum are unremarkable. Biapical calcified pleural plaques. Previous right lung base dense consolidation has resolved. Previous left lung base dense consolidation has nearly completely resolved. Emphysema. The visualized upper abdomen is unremarkable. No acute fractures. IMPRESSION: 1. No acute pulmonary embolus. 2. Mild residual consolidation at the left lung base relative to theprior exam. This document has been electronically signed by: Thad Wesley MD on 03/31/2024 22:35:11 us Asia Hynds-Britney PA IMG CT PROCEDURES Dalila l Result * XR Chest 2 Views (03/31/2024 4:16 PM EST) Only the most recent of2 resultswithin the time period is included. Anatomical Region Laterality Modality Body Radiographic Claribel ging 03/31/2024 4:30 PM EST Impressions 03/31/2024 4:32 PM EST FINDINGS/IMPRESSION: Hyperinflation with flattening of the diaphragms suggestive emphysematous changes with persistent interstitial opacities throughout suggestive of chronic interstitial changes . ??There is no new consolidation or effusion. ??No pneumothorax. ??Dual lead left pacer. -------- FINAL REPORT -------- Dictated By: Shikha Chaudhry Dictated Date: 03/31/2024 16:30 ET Assigned Physician: Shikha Chaudhry Reviewed and Electronically Signed By: Shikha Chaudhry Signed Date: 03/31/2024 16:32 ET Workstation ID: [id number] Transcribed By: Self Edit Transcribed Date: 03/31/2024 16:30 ET Narrative 03/31/2024 4:32 PM EST XR CHEST 2 VIEWS INDICATION: dyspnea TECHNIQUE: XR CHEST 2 VIEWS COMPARISON: 02/20/2024 Procedure Note Shikha Chaudhry MD - 03/31/2024 XR CHEST 2 VIEWS INDICATION: dyspnea TECHNIQUE: XR CHEST 2 VIEWS COMPARISON: 02/20/2024 IMPRESSION: FINDINGS/IMPRESSION: Hyperinflation with flattening of the diaphragmssuggestive emphysematous changes with persistent interstitial opacitiesthroughout suggestive of chronic interstitial changes . There is no newconsolidation or effusion. No pneumothorax. Dual lead left pacer. -------- FINAL REPORT -------- Dictated By: Shikha Chaudhry Dictated Date: 03/31/2024 16:30 ET Assigned Physician: Shikha Chaudhry Reviewed and Electronically Signed By: Shikha Chaudhry Signed Date: 03/31/2024 16:32 ET Workstation ID: [id number] Transcribed By: Self Edit Transcribed Date: 03/31/2024 16:30 ET Lila Smith MD IMG XR PROCEDURES Final Result * Respiratory virus panel molecular study (03/31/2024 4:02 PM EST) Only the most recent of2 resultswithin the time period is included. Adenovirus Detection by PCR Not Detected Not Detected LAB MICROBIOLOGY METHOD 03/31/2024 5:53 PM [facility] Influenza A PCR Not Detected Not Detected LAB MICROBIOLOGY METHOD 03/31/2024 5:53 PM EST [facility] Influenza B PCR Not Detected Not Detected LAB MICROBIOLOGY METHOD 03/31/2024 5:53 PM EST [facility] Coronavirus 229E Not Detected Not Detected LAB MICROBIOLOGY METHOD 03/31/2024 5:53 PM EST [facility] Coronavirus HKU1 Not Detected Not Detected LAB MICROBIOLOGY METHOD 03/31/2024 5:53 PM EST [facility] Coronavirus OC43 Not Detected Not Detected LAB MICROBIOLOGY METHOD 03/31/2024 5:53 PM EST [facility] Coronavirus NL63 Not Detected Not Detected LAB MICROBIOLOGY METHOD 03/31/2024 5:53 PM EST [facility] Parainfluenza Virus 1 Not Detected Not Detected LAB MICROBIOLOGY METHOD 03/31/2024 5:53 PM EST [facility] Parainfluenza Virus 2 Not Detected Not Detected LAB MICROBIOLOGY METHOD 03/31/2024 5:53 PM [facility] Parainfluenza Virus 3 Not Detected Not Detected LAB MICROBIOLOGY METHOD 03/31/2024 5:53 PM [facility] Parainfluenza Virus 4 Not Detected Not Detected LAB MICROBIOLOGY METHOD 03/31/2024 5:53 PM [facility] RSV PCR Not Detected Not Detected LAB MICROBIOLOGY METHOD 03/31/2024 5:53 PM [facility] Human Metapneumovirus A and B Not Detected Not Detected LAB MICROBIOLOGY METHOD 03/31/2024 5:53 PM [facility] Rhinovirus/Entero virus Not Detected Not Detected LAB MICROBIOLOGY METHOD 03/31/2024 5:53 PM [facility] Bordetella pertussis Not Detected Not Detected LAB MICROBIOLOGY METHOD 03/31/2024 5:53 PM [facility] Bordetella parapertussis Not Detected Not Detected LAB MICROBIOLOGY METHOD 03/31/2024 5:53 PM [facility] Mycoplasma pneumo by PCR Not Detected Not Detected LAB MICROBIOLOGY METHOD 03/31/2024 5:53 PM [facility] Chlamydia pneumoniae Not Detected Not Detected LAB MICROBIOLOGY METHOD 03/31/2024 5:53 PM [facility] SARS COV-2 Not Detected Not Detected LAB MICROBIOLOGY METHOD 03/31/2024 5:53 PM [facility] Swab Both anterior nares / Unknown Non-blood Collection / Unknown 03/31/2024 4:02 PM EST 03/31/2024 4:25 PM EST [facility] - 03/31/2024 5:53 PM EST Testing was performed using the [employer] Respiratory Pathogen PCR Assay. All results must be correlated with the clinical findings. Results should not be used as the sole basis for diagnosis. False Negative results may occur from the presence of sequence variants in the region targeted by the assay or the presence of inhibitors. Results may be affected by concurrent antiviral/antimicrobial therapy or levels of organisms that are below the limit of detection. [facility] LAB MICROBIOLOGY - GEN ERAL ORDERABLES Final Result Performing Organization Address [facility]/ZIP Co de Phone Number [facility] [address] [place] [address], [place] [phone] * (ABNORMAL) BNP (03/31/2024 4:00 PM EST) Only the most recent of2 resultswithin the time period is included. Pathologist [facility] BNP 401(H) <=100 pcg/mL LAB CHEMISTRY METHOD 03/31/2024 5:03 PM EST [facility] Blood Venous blood specimen / Unknown Venipuncture / Unknown 03/31/2024 4:00 PM EST 03/31/2024 4:25 PM EST [facility] [employer]Britney ARCHER LAB BLOOD ORDERABLES F inal Result Performing Organization Address [facility] de Phone Number [facility] [address] [place] [address], [place] [phone] * [place] [facility] [place]12/[place]24 7:02 AM EST) Date Time Interrogation Session [id number] CV DEVICE CHECK Implantable Pulse Generator Sourcing Analyst [employer] CV DEVICE CHECK Implantable Pulse Generator Type IPG CV DEVICE CHECK Implantable Pulse Generator Model Assurity MRI 2272 CV DEVICE CHECK Implantable Pulse Generator Serial Number [id number] CV DEVICE CHECK Implantable Pulse Generator Implant Date 20240206 CV DEVICE CHECK Battery Voltage 2.990 CV D EVICE CHECK Battery Status Beginning of Service CV DEVICE CHECK Brandon Statistic RA Percent Paced 0.16 CV DEVICE CHECK Brandon Statistic RV Percent Paced 84.00 CV DEVICE CHECK Lead Channel Sensing Intrinsic Amplitude 3.700 CV DEVICE CHECK Lead Channel Setting Sensing Sensitivity 0.50 CV DEVICE CHECK Lead Channel Impedance Value 425 CV DEVICE CHECK Lead Channel Pacing Threshold Amplitude 0.500 CV DEVICE CHECK Lead Channel Pacing Threshold Pulse Width 0.4 CV DEVICE CHECK Lead Channel RA Pacing Threshold Date 2024-03-11 CV DEVICE CHECK Lead Channel Setting Pacing Amplitude 2.500 CV DEVICE CHECK Lead Channel Setting Pacing Pulse Width 0.4 CV DEVICE CHECK Lead Channel Sensing Intrinsic Amplitude 11.200 CV DEVICE CHECK Lead Channel Setting Sensing Sensitivity 2.00 CV DEVICE CHECK Lead Channel Impedance Value 325 CV DEVICE CHECK Lead Channel Pacing Threshold Amplitude 0.630 CV DEVICE CHECK Lead Channel Pacing Threshold Pulse Width 0.4 CV DEVICE CHECK Lead Channel RV Pacing Threshold Date 2024-03-11 CV DEVICE CHECK Lead Channel Setting Pacing Amplitude 0.880 CV DEVICE CHECK Lead Channel Setting Pacing Pulse Width 0.4 CV DEVICE CHECK Brandon Setting Mode (NBG Code) DDD CV DEVICE CHECK Brandon Setting Lower Rate Limit 60 CV DEVICE CHECK Brandon Setting AT Mode Switch Rate 180 CV DEVICE CHECK Brandon Setting Maximum Tracking Rate 120 CV DEVICE CHECK Brandon Setting Maximum Sensor Rate 120 CV DEVICE CHECK Brandon Setting PAV Delay 225 CV DEVICE CHECK Brandon Setting JOYCE Delay 200 CV DEVICE CHECK Date of Service 2024-03-21 CV DEVICE CHECK Anatomical Region Laterality Modality Device Interroga tion 03/11/2024 Impressions 03/16/2024 9:43 AM EST Normal In-Office: With Events * Normal Device Function * Events or Alerts: 1 new AMS alert, event lasted 7 days 22 hours and 7 minutes, at times rapid but overall controlled rates. Patient is not on OAC, Alma Hanson NP spoke with patient and son, we will get her scheduled with a provider for a hospital f/u and SL will reach out to PCP. * Battery: CHARLES, 9.60 yrs * Sensing, impedance and thresholds reviewed and tested * Presenting Rhythm: -ELECTRONIC DIE MAKER 90s (patient was flustered from van ride and having anxiety, heart rate slowed down during device check) * Underlying -VS 90s * Heart Rate Histograms reviewed * Pacing and Detection Parameters were evaluated * PAV changed to 225ms * JOYCE changed to 200ms * Rate responsive AV delay turned off today, programming changes approved by SL. ?? Narrative Procedure Note Jimmy Noguera MD - 03/16/2024 IMPRESSION: Normal In-Office: With Events * Normal Device Function * Events or Alerts: 1 new AMS alert, event lasted 7 days 22 hours and 7minutes, at times rapid but overall controlled rates. Patient is not onOAC, Alma Hanson NP spoke with patient and son, we will get herscheduled with a provider for a hospital f/u and SL will reach out to PCP. * Battery: CHARLES, 9.60 yrs * Sensing, impedance and thresholds reviewed and tested * Presenting Rhythm: -ELECTRONIC DIE MAKER 90s (patient was flustered from van ride andhaving anxiety, heart rate slowed down during device check) * Underlying -VS 90s * Heart Rate Histograms reviewed * Pacing and Detection Parameters were evaluated * PAV changed to 225ms * JOYCE changed to 200ms * Rate responsive AV delay turned off today, programming changes approvedby SL. us Order Referral Cardiovascular CV IMPLANTABLE CAR DIAC DEVICE PROCEDURES Final Result * (ABNORMAL) Complete blood count (03/11/2024 5:23 AM EST) Only the most recent of11 resultswithin the time period is included. [facility] WBC 6.9 4.8 - 10.8 K/mcL LAB HEMETOLOGY METHOD 03/11/2024 10:40 AM [facility] RBC 2.80(L) 3.80 - 4.80 M/mcL LAB HEMETOLOGY METHOD 03/11/2024 10:40 AM [facility] Hemoglobin 7.5(L) 11.5 - 16.0 g/dL LAB HEMETOLOGY METHOD 03/11/2024 10:40 AM [facility] Hematocrit 26.7(L) 35.0 - 47.0 % LAB HEMETOLOGY METHOD 03/11/2024 10:40 AM [facility] MCV 96.7 79.0 - 98.0 FL LAB HEMETOLOGY METHOD 03/11/2024 10:40 AM [facility] MCH 27.2 27.0 - 32.0 pcg LAB HEMETOLOGY METHOD 03/11/2024 10:40 AM EST [facility] MCHC 28.1(L) 32.0 - 37.0 g/dL LAB HEMETOLOGY METHOD 03/11/2024 10:40 AM EST [facility] RDW 17.1(H) 11.0 - 15.0 % LAB HEMETOLOGY METHOD 03/11/2024 10:40 AM [facility] Platelets 272 130 - 400 K/mcL LAB HEMETOLOGY METHOD 03/11/2024 10:40 AM EST [facility] MPV 11.3(H) 7.0 - 11.0 FL LAB HEMETOLOGY METHOD 03/11/2024 10:40 AM [facility] NRBC 0.0 <1.0 % LAB HEMETOLOGY METHOD 03/11/2024 10:40 AM [facility] NRBC Absolute 0.00 <0.10 K/mcL LAB HEMETOLOGY METHOD 03/11/2024 10:40 AM [facility] Blood Venous blood specimen / Unknown Venipuncture / Unknown 03/11/2024 5:23 AM EST 03/11/2024 9:57 AM EST us Wally Flood MD LAB BLOOD ORDERABLES Final Resu lt [facility] [address] [place] [address], * (ABNORMAL) Comprehensive metabolic panel (03/08/2024 5:44 AM EST) Only the most recent of5 resultswithin the time period is included. Sodium 140 133 - 145 mmol/L LAB CHEMISTRY METHOD 03/08/2024 10:19 AM [facility] Potassium 4.4 3.5 - 5.5 mmol/L LAB CHEMISTRY METHOD 03/08/2024 10:19 AM [facility] Chloride 106 96 - 110 mmol/L LAB CHEMISTRY METHOD 03/08/2024 10:19 AM [facility] CO2 30 21 - 32 mmol/L LAB CHEMISTRY METHOD 03/08/2024 10:19 AM [facility] Anion Gap 4 3 - 11 LAB CHEMISTRY METHOD 03/08/2024 10:19 AM [facility] Glucose 94 70 - 100 mg/dL LAB CHEMISTRY METHOD 03/08/2024 10:19 AM [facility] BUN 23 5 - 25 mg/dL LAB CHEMISTRY METHOD 03/08/2024 10:19 AM [facility] Creatinine 1.87(H) 0.50 - 1.10 mg/dL LAB CHEMISTRY METHOD 03/08/2024 10:19 AM [facility] eGFR 26(L) >=60 mL/min/1. 73m2 LAB CHEMISTRY METHOD 03/08/2024 10:19 AM [facility] Comment:Calculation based on the??Chronic Kidney Disease Epidemiology Collaboration (CKD-EPI) equation refit??without adjustment for race. BUN/Creatinine Ratio 12.3 LAB CHEMISTRY METHOD 03/08/2024 10:19 AM [facility] Calcium 8.9 8.5 - 10.5 mg/dL LAB CHEMISTRY METHOD 03/08/2024 10:19 AM [facility] AST (SGOT) 13 10 - 42 unit/L LAB CHEMISTRY METHOD 03/08/2024 10:19 AM [facility] ALT (SGPT) 16 10 - 60 unit/L LAB CHEMISTRY METHOD 03/08/2024 10:19 AM [facility] Alkaline Phosphatase 89 42 - 121 unit/L LAB CHEMISTRY METHOD 03/08/2024 10:19 AM [facility] Total Protein 5.3(L) 6.0 - 8.0 g/dL LAB CHEMISTRY METHOD 03/08/2024 10:19 AM [facility] Albumin 2.6(L) 3.2 - 5.0 g/dL LAB CHEMISTRY METHOD 03/08/2024 10:19 AM EST [facility] Total Bilirubin 0.5 0.0 - 1.4 mg/dL LAB CHEMISTRY METHOD 03/08/2024 10:19 AM EST [facility] Blood Venous blood specimen / Unknown Venipuncture / Unknown 03/08/2024 5:44 AM EST 03/08/2024 9:14 AM EST us Wally Flood MD LAB BLOOD ORDERABLES Final Resu lt [facility] [address] [place] [address], [place] [phone] * CT Abdomen Pelvis wo Contrast (02/20/2024 11:05 AM EST) Anatomical Region Laterality Modality Body Computed Tomogra phy 02/20/2024 11:3 0 AM EST Impressions 02/20/2024 11:43 AM EST 1. ??Opacities in the posterior aspect of both lower lobes are less confluent than on the recent chest CT, but there are new patchy groundglass opacities at both bases, left greater than right. ??The findings are suggestive of an infectious/inflammatory process. 2. ??No acute findings in the abdomen and pelvis. -------- FINAL REPORT -------- Dictated By: Filippo Perry Dictated Date: 02/20/2024 11:30 ET Assigned Physician: Filippo Perry Reviewed and Electronically Signed By: Filippo Perry Signed Date: 02/20/2024 11:43 ET Workstation ID: [id number] Transcribed By: Self Edit Transcribed Date: 02/20/2024 11:32 ET Narrative 02/20/2024 11:[address] abdomen and pelvis, 02/20/2024. HISTORY: Abdominal pain, acute, nonlocalized. COMPARISON: 07/31/2022. ??Chest CT 02/07/2024. TECHNIQUE: Noncontrast CT of the abdomen and pelvis with coronal and sagittal reformats. Dose length product: ??882 mGy-cm. FINDINGS: Lung bases: There are confluent opacities in the posterior aspect of both lower lobes, more extensive on the left than the right. ??These are less confluent than on the recent chest CT. ??However, there are also patchy multifocal groundglass opacities in both lower lobes which are not seen previously. Cardiac: Prominent mitral annular calcifications. ??Partially visible pacemaker leads positioned in the right atrium and right ventricle. Liver: Limited evaluation without intravenous contrast. ??No visible abnormality. Biliary: Punctate calcified gallstone. Pancreas: Limited evaluation without intravenous contrast. ??No visible abnormality. Spleen: Limited evaluation without intravenous contrast. ??No visible abnormality. Adrenal glands: Normal. Kidneys: Limited evaluation without intravenous contrast. ??Mild generalized cortical atrophy. ??Calcifications in the baldemar favored to be vascular. ??Normal appearance of the ureters. Retroperitoneum: No mass or adenopathy. Abdominal vasculature: Extensive atherosclerotic calcifications. ??Mild ectasia of the infrarenal aorta. Bowel/mesentery: No obstruction or adenopathy. ??No mass or ascites. ??Sigmoid predominant colonic diverticulosis. Abdominal wall: Normal. Pelvic nodes: No adenopathy. Pelvic organs: Normal. Bones: Demineralized. ??Degenerative changes of the spine. ??Mild degenerative changes of the sacroiliac joints. Procedure Note Filippo Perry MD - 02/20/2024 CT abdomen and pelvis, 02/20/2024. HISTORY: Abdominal pain, acute, nonlocalized. COMPARISON: 07/31/2022. Chest CT 02/07/2024. TECHNIQUE: Noncontrast CT of the abdomen and pelvis with coronal andsagittal reformats. Dose length product: 882 mGy-cm. FINDINGS: Lung bases: There are confluent opacities in the posterior aspect of bothlower lobes, more extensive on the left than the right. These are lessconfluent than on the recent chest CT. However, there are also patchymultifocal groundglass opacities in both lower lobes which are not seenpreviously. Cardiac: Prominent mitral annular calcifications. Partially visiblepacemaker leads positioned in the right atrium and right ventricle. Liver: Limited evaluation without intravenous contrast. No visibleabnormality. Biliary: Punctate calcified gallstone. Pancreas: Limited evaluation without intravenous contrast. No visibleabnormality. Spleen: Limited evaluation without intravenous contrast. No visibleabnormality. Adrenal glands: Normal. Kidneys: Limited evaluation without intravenous contrast. Mildgeneralized cortical atrophy. Calcifications in the baldemar favored to bevascular. Normal appearance of the ureters. Retroperitoneum: No mass or adenopathy. Abdominal vasculature: Extensive atherosclerotic calcifications. Mildectasia of the infrarenal aorta. Bowel/mesentery: No obstruction or adenopathy. No mass or ascites.Sigmoid predominant colonic diverticulosis. Abdominal wall: Normal. Pelvic nodes: No adenopathy. Pelvic organs: Normal. Bones: Demineralized. Degenerative changes of the spine. Milddegenerative changes of the sacroiliac joints. IMPRESSION: 1. Opacities in the posterior aspect of both lower lobes are lessconfluent than on the recent chest CT, but there are new patchygroundglass opacities at both bases, left greater than right. Thefindings are suggestive of an infectious/inflammatory process. 2. No acute findings in the abdomen and pelvis. -------- FINAL REPORT -------- Dictated By: Filippo Perry Dictated Date: 02/20/2024 11:30 ET Assigned Physician: Filippo Perry Reviewed and Electronically Signed By: Filippo Perry Signed Date: 02/20/2024 11:43 ET Workstation ID: [id number] Transcribed By: Self Edit Transcribed Date: 02/20/2024 11:32 ET Geraldo Kelli Edmonds MD [facility] CT PROCEDURES Final Result * Type and screen (02/20/2024 8:59 AM EST) ABO Group A 02/20/2024 10:38 AM EST [facility] Rh Type Negative 02/20/2024 10:38 AM EST [facility] Antibody Screen Negative 02/20/2024 10:38 AM EST [facility] Blood Venous blood specimen / Unknown Venipuncture / Unknown 02/20/2024 8:59 AM EST 02/20/2024 9:13 AM EST [facility] Kelli Edmonds MD LAB BLOOD BANK TEST ORDERABLES Final Result [facility] [address] [place] [address], * [id number], RSV, Influenza A and B qualitative RT-PCR (02/17/2024 12:00 AM EST) SARS COV-2 Not Detected Not Detected LAB MOLECULAR DIAGNOSTICS METHOD 02/17/2024 2:36 PM [facility] Comment: Disclaimer: The manner in which this information is used to guide patient care is the responsibility of the healthcare provider. Testing was performed using the [employer] Alinity m SARS-CoV-2 test. This test has been authorized by FDA under an Emergency Use Authorization (EUA). This test is only authorized for the duration of time the declaration that circumstances exist justifying the authorization of the emergency use of in vitro diagnostic tests for detection of SARS-CoV-2 virus and/or diagnosis of COVID-19 infection under section 564(b)(1) of the Act, 21 U.S.C. 360bbb- 3(b)(1), unless the authorization is terminated or revoked sooner. Fact sheet for Healthcare Providers can be found at: https://www.fda.gov/media/314248/download Fact sheet for Patients can be found at: https://www.fda.gov/media/544424/download Influenza A PCR Not Detected Not Detected LAB MOLECULAR DIAGNOSTICS METHOD 02/17/2024 2:36 PM EST [facility] Influenza B PCR Not Detected Not Detected LAB MOLECULAR DIAGNOSTICS METHOD 02/17/2024 2:36 PM [facility] RSV PCR Not Detected Not Detected LAB MOLECULAR DIAGNOSTICS METHOD 02/17/2024 2:36 PM [facility] Swab Nasopharyngeal structure / Unknown Non-blood Collection / Unknown 02/17/2024 02/17/2024 12:09 PM EST us Wally Flood MD LAB MICROBIOLOGY - GENERAL VIPUL VAZQUEZ Final Result Performing Organization Address [facility]/ZIP Co de Phone Number [facility] [address] [place] [address], [place] [phone] * (ABNORMAL) POCT Glucose, blood (02/12/2024 11:16 AM EST) Only the most recent of21 resultswithin the time period is included. Glucose POCT 139(H) 70 - 100 mg/dL 02/12/2024 11:16 AM EST [facility] Blood Capillary blood specimen / Unknown 02/12/2024 11:16 AM EST 02/12/2024 11:18 AM EST David Houser MD LAB POINT OF CARE TE ST DOCKED DEVICE UNSOLICITED RESULTS Final Result Performing Organization Address [facility] de Phone Number [facility] [address] [place] [address], [place] [phone] * XR Chest 1 View (02/11/2024 2:39 PM EST) Only the most recent of3 resultswithin the time period is included. Anatomical Region Laterality Modality Body Radiographic Claribel ging 02/12/2024 7:52 AM EST Impressions 02/12/2024 7:55 AM EST Right lung base infiltrate, new since the chest radiograph performed 02/07/[address] pulmonary angiography also performed 02/07/2024. The small left base infiltrate has resolved since the previous examination. Code 11068 -------- FINAL REPORT -------- Dictated By: Kei Ashby Dictated Date: 02/12/2024 07:52 ET Assigned Physician: Kei Ashby Reviewed and Electronically Signed By: Kei Ashby Signed Date: 02/12/2024 07:55 ET Workstation ID: [id number] Transcribed By: Self Edit Transcribed Date: 02/12/2024 07:52 ET Narrative 02/12/2024 7:55 AM EST HISTORY: The patient is an 88-year-old female. Previous chest radiographs performed 02/07/2024 and 02/06/2024 demonstrated left base atelectasis and/or infiltrate. CT pulmonary angiography performed 02/11/2024 demonstrated bilateral lower lobe pneumonia. The patient now presents for follow-up. FINDINGS: Sitting AP portable radiograph of the chest again demonstrates a dual-chamber cardiac pacemaker with its leads appearing intact and in good position, unchanged since the prior study performed 02/07/2024. The cardiac silhouette remains mildly enlarged. The aortic knob is calcified. A small infiltrate has developed at the right lung base since the prior chest radiograph. The small left base infiltrate has resolved since the prior study. Procedure Note Kei Ashby MD - 02/12/2024 HISTORY: The patient is an 88-year-old female. Previous chest radiographsperformed 02/07/2024 and 02/06/2024 demonstrated left base atelectasisand/or infiltrate. CT pulmonary angiography performed 02/11/2024emonstrated bilateral lower lobe pneumonia. The patient now presents forfollow-up. FINDINGS: Sitting AP portable radiograph of the chest again demonstrates adual-chamber cardiac pacemaker with its leads appearing intact and in goodposition, unchanged since the prior study performed 02/07/2024. Thecardiac silhouette remains mildly enlarged. The aortic knob is calcified.A small infiltrate has developed at the right lung base since the priorchest radiograph. The small left base infiltrate has resolved since theprior study. IMPRESSION: Right lung base infiltrate, new since the chest radiograph [id number]/14/[address] pulmonary angiography also /14/2024. The small left base infiltrate has resolved since the previousexamination. Code 45215 -------- FINAL REPORT -------- Dictated By: Kei Ashby Dictated Date: 02/12/2024 07:52 ET Assigned Physician: Kei Ashby Reviewed and Electronically Signed By: Kei Ashby Signed Date: 02/12/2024 07:55 ET Workstation ID: [id number] Transcribed By: Self Edit Transcribed Date: 02/12/2024 07:52 ET David Houser MD IMG XR PROCEDURES Final Result * Sodium, urine, random (02/09/2024 10:42 PM EST) Pathologist [facility] Sodium, Ur 25 mmol/L LAB CHEMISTRY METHOD 02/09/2024 11:34 PM EST [facility] Urine Urine specimen obtained by clean catch procedure / Unknown Non-blood Collection / Unknown 02/09/2024 10:42 PM EST 02/09/2024 11:11 PM EST Valdo Zurita MD LAB URINE ORDERABLES Final Res ult Performing Organization Address [facility]/ZIP Co de Phone Number [facility] [address] [place] [address], [place] [phone] * Phosphorus (02/07/2024 5:43 AM EST) [facility] Phosphorus 4.2 2.5 - 4.5 mg/dL LAB CHEMISTRY METHOD 02/07/2024 7:17 AM EST [facility] Blood Venous blood specimen / Unknown Venipuncture / Unknown 02/07/2024 5:43 AM EST 02/07/2024 6:34 AM EST Elizabeth Jerry MD LAB BLOOD ORDERABLES Final Re sult [facility] [address] [place] [address], [place] [phone] * Calcium, ionized (02/07/2024 5:43 AM EST) Calcium Ionized 4.98 4.50 - 5.30 mg/dL 02/07/2024 6:45 AM EST [facility] Blood Venous blood specimen / Unknown Venipuncture / Unknown 02/07/2024 5:43 AM EST 02/07/2024 6:33 AM EST Elizabeth Jerry MD LAB BLOOD ORDERABLES Final Re sult [facility] [address] [place] [address], [place] [phone] * Culture blood (02/06/2024 10:48 PM EST) Culture, Blood No growth at 5 days LAB MICROBIOLOGY METHOD 02/12/2024 12:01 AM EST [facility] Blood Venous blood specimen / Unknown Venipuncture / Unknown 02/06/2024 10:48 PM EST 02/06/2024 10:55 PM EST Anu ARCHER LAB MICROBIOLOGY - GENE RAL ORDERABLES Final Result Performing Organization Address [facility]/ZIP Co de Phone Number [facility] [address] [place] [address], [place] [phone] * INSERT PPM DUAL (02/06/2024 2:40 PM EST) Anatomical Region Laterality Modality X-Ray Angiograph y Narrative 02/16/2024 11:16 AM EST ?Successful dual-chamber left bundle pacer implant Study Details Is a 8-year-old female presented with complete heart block and dyspnea. Lead Implant The left axillary vein was cannulated using the Seldinger technique. The RA lead was successfully implanted in the right atrial appendage. There was no extracardiac stimulation on the lead. Right atrial lead: Dillon model 2088 TC/52 serial number [id number], capture threshold 1 V at 0.4 ms, lead. 530 ohms, P wave 3.0 mV Right ventricular lead: Dillon model 2088 TC/58 serial number [id number], capture threshold 1 V at 0.4 ms, impedance 510 ohms, R wave 11 mV Device: YouFetch MRI model PM 2272 serial #[id number] Procedure Details After obtaining written informed consent the patient was brought to the EP laboratory in the fasting state and was moderately sedated by nursing staff using small doses of Versed and fentanyl. After the usual sterile prep and local anesthesia with 1% lidocaine I made a 3 cm incision over the left chest. I used Bovie and blunt dissection to form a pocket over the pectoralis muscle. I then access the axillary vein twice placing 2 guidewires. Over the first I placed a 6 Kazakh sheath through which I advanced the pacing lead to the right ventricle for backup pacing. This lead was pulled back into the atria and with a J stylette I positioned it in the appendage where it was actively fixed into place. Through the second stylette I placed a 9 Kazakh sheath through which I advanced a Dillon left bundle sheath over guidewire. I placed the pacing lead down to the tip and mapped the septum. I extended the active-fixation helix and rotated the lead clockwise into location approximately 8 mm. I had an excellent pacing morphology and left ventricular activation time. I slit the sheath and secured both leads to the underlying pectoralis muscle with 1.0 Nurolon suture. Both leads were placed in the header of the device and that device placed into the pre-existing pocket. I irrigated the pocket with antibiotics and then closed with 2.0 v-loc suture and surgical glue. There were no immediate complications and the patient was returned to recovery in stable condition Alma Hanson NP CV ELECTROPHYSIOLOGY PROCEDU RES Final Result * (ABNORMAL) TRANSTHORACIC ECHOCARDIOGRAM (TTE) COMPLETE W/ CONTRAST (02/06/2024 7:37 AM EST) Left Atrium Minor Hudson 6.3 cm CV PACS Left Atrium Major Hudson 6.5 cm CV PACS LA Area Sys (A2C) 26 cm2 CV PACS LA Area Sys (A4C) 21 cm2 CV PACS LA Volume (BP) 70 mL CV PACS RA Area 17.0 cm2 CV PACS RA 2D Volume 39 mL CV PACS AV Mean Gradient 15 mmHg CV PACS Ao VTI 67.3 cm CV PACS AV Peak Rolf 2.7 m/s CV PACS AV Peak Gradient 30 mmHg CV PACS AV Area Continuity Equation 1.0 cm2 CV PACS AV Area Peak Velocity 1.1 cm2 CV PACS IVC Proximal 1.9 cm CV PACS IVSD 1.2(A) 0.6 - 0.9 cm CV PACS LVIDD 4.3 3.8 - 5.2 cm CV PACS LVIDS 2.8 2.2 - 3.5 cm CV PACS LVOT Diameter 1.8 cm CV PACS LVOT Mean Grad 3 mmHg CV PACS LVOT Peak VTI 27.4 cm CV PACS LVOT Mean Rolf 0.9 m/s CV PACS LVOT Peak Rolf 1.2 m/s CV PACS LVOT Peak Gradient 6 mmHg CV PACS LVPWD 1.2(A) 0.6 - 0.9 cm CV PACS LVOT Area 2.5 cm2 CV PACS LVOT Stroke Volume 70 mL CV PACS RV Diastolic Basal Dimension 2.8 2.5 - 4.1 cm CV PACS RV S' 11 cm/s CV PACS TAPSE 19 mm CV PACS LVOT Stroke Index 39 mL/m2 CV PACS Relative Wall Thickness ratio 0.56 CV PACS LVOT:AV VTI Index 0.41 CV PACS FS 35 % CV PACS LV Mass 2D 185 g CV PACS LVOT flow 229 mL/s CV PACS RA 2D Volume Index 22 mL/m2 CV PACS BLAYNE Index (VTI) 0.58 cm2/m2 CV PACS BLAYNE Index (Pk Rolf) 0.61 cm2/m2 CV PACS LVIDD Index 2.39 cm/m2 CV PACS LVIDS Index 1.56 cm/m2 CV PACS AV Velocity Ratio 0.44 CV PACS LA Volume Index (BP) 39 mL/m2 CV PACS LV Mass Index 2D 103 g/m2 CV PACS BSA 1.85 m2 CV PACS Est. RA Pressure 3 mmHg CV PACS Anatomical Region Laterality Modality Ultrasound Narrative 02/06/2024 8:00 AM EST ?Left ventricle cavity size is normal. Left ventricle mild concentric hypertrophy.Left ventricular systolic function is in the normal range with an ejection fraction of 65-70%. No regional LV wall motion abnormalities noted. ?Right ventricle cavity is normal. Right ventricular systolic function is normal. ?Aortic valve demonstrates mild stenosis. ?There is severe annular calcification. At least mild mitral regurgitation. Unable to accurately assess degree of mitral stenosis due to heart block with [id number] variation. ?The right ventricular systolic pressure is elevated at 46 mmHg with average of 2 beats. ?Compared to previous study of 08/06/2022, the gradient interrogation across aortic valve and mitral valve interrogation is limited due to significant [id number] variation. ??Complete heart block is present. Left Ventricle Left ventricle cavity size is normal. There is mild concentric hypertrophy. Systolic function is normal with an ejection fraction of 65-70%. There are no regional LV wall motion abnormalities. Unable to assess diastolic function due to heart block. Right Ventricle Right ventricle cavity appears normal. Systolic function is normal. Left Atrium Left atrium cavity is mildly dilated. Right Atrium Right atrium cavity is normal. IVC/SVC RA pressures is estimated to be 3 mmHg (IVC diameter <21 mm and decreases >50% during inspiration). Mitral Valve The leaflets are thickened. There is severe annular calcification. At least mild mitral regurgitation. Unable to accurately assess degree of mitral stenosis due to heart block with [id number] variation. Tricuspid Valve Tricuspid valve structure is normal. There is trace to mild regurgitation. The right ventricular systolic pressure is elevated at 46 mmHg with average of 2 beats.. Aortic Valve The leaflets are thickened with reduced excursion. At least trace aortic regurgitation. There is mild stenosis. Pulmonic Valve Pulmonic valve structure is normal. There is trace pulmonic valve regurgitation. Ascending Aorta The aorta was not well visualized. Pericardium There is no pericardial effusion. Study Details Overall the study quality was technically difficult. Definity contrast was given to enhance imaging. us Latasha ARCHER CV ECHO PROCEDURES Final Re sult * Prothrombin time with INR (02/06/2024 6:44 AM EST) Protime 12.0 10.6 - 13.9 sec LAB COAGULATION METHOD 02/06/2024 7:22 AM EST [facility] INR 1.0 LAB COAGULATION METHOD 02/06/2024 7:22 AM EST [facility] Blood Venous blood specimen / Unknown Venipuncture / Unknown 02/06/2024 6:44 AM EST 02/06/2024 7:02 AM EST us Elizabeth Jerry MD LAB BLOOD ORDERABLES Final Re sult [facility] [address] [place] [address], [place] [phone] * (ABNORMAL) Urinalysis with reflex microscopic and culture (02/06/2024 5:33 AM EST) Specific [place] Urine 1.017 1.003 - 1.030 LAB URINALYSIS - AUTOMATED METHOD 02/06/2024 6:20 AM [facility] pH, Urine 5.5 5.0 - 8.0 pH LAB URINALYSIS - AUTOMATED METHOD 02/06/2024 6:20 AM [facility] Leukocytes, Urine Negative Negative LAB URINALYSIS - AUTOMATED METHOD 02/06/2024 6:20 AM [facility] Nitrite, Urine Negative Negative LAB URINALYSIS - AUTOMATED METHOD 02/06/2024 6:20 AM [facility] Protein, Urine Negative <=Trace mg/dL LAB URINALYSIS - AUTOMATED METHOD 02/06/2024 6:20 AM [facility] Glucose, Urine Negative Negative mg/dL LAB URINALYSIS - AUTOMATED METHOD 02/06/2024 6:20 AM [facility] Ketones, Urine Trace(A) Negative mg/dL LAB URINALYSIS - AUTOMATED METHOD 02/06/2024 6:20 AM [facility] Urobilinogen, Urine 0.2 0.2 - 1.0 mg/dL LAB URINALYSIS - AUTOMATED METHOD 02/06/2024 6:20 AM [facility] Bilirubin, Urine Negative Negative LAB URINALYSIS - AUTOMATED METHOD 02/06/2024 6:20 AM [facility] Blood, Urine Negative Negative LAB URINALYSIS - AUTOMATED METHOD 02/06/2024 6:20 AM [facility] Urine Urine specimen obtained by clean catch procedure / Unknown Non-blood Collection / Unknown 02/06/2024 5:33 AM EST 02/06/2024 6:14 AM EST Nelia Hernandez LAB URINE ORDERABLES Dalila l Result Performing Organization Address [facility]/ZIP Co de Phone Number [facility] [address] [place] [address], * Bergeron urine culture tube (02/06/2024 5:33 AM EST) Extra Tube Hold for add-ons. 02/06/2024 8:01 AM EST [facility] Comment:Auto resulted. Urine Urine specimen obtained by clean catch procedure / Unknown Non-blood Collection / Unknown 02/06/2024 5:33 AM EST 02/06/2024 6:14 AM EST [facility] Haseeb Hernandez [facility] URINE ORDERABLES Dalila l Result Performing Organization Address [facility] de Phone Number [facility] [address] [place] [address], * Thyroid stimulating hormone (TSH) (02/06/2024 4:17 AM EST) TSH 1.98 0.40 - 4.00 mcIU/mL LAB CHEMISTRY METHOD 02/06/2024 5:54 AM EST [facility] Blood Venous blood specimen / Unknown Venipuncture / Unknown 02/06/2024 4:17 AM EST 02/06/2024 5:08 AM EST Lila Smith MD LAB BLOOD ORDERABLES Fin al Result Performing Organization Address City/[facility]/ZIP Co de Phone Number [facility] [address] [place] [address], [place] [phone] * ECG-Outside (02/06/2024) Provider Onbase ECG ORDERABLES Final Result * [place] CRITICAL CARE 30-74 MINUTES (02/05/2024 10:56 PM EST) Narrative Lila Smith MD - 02/05/2024 10:56 PM EST Lila Smith MD ? 02/06/2024 ??2:37 AM Critical Care Performed by: Lila Smith MD Authorized by: Lila Smith MD ?? Critical care provider statement: ??Critical care time (minutes): ??86 ??Critical care was necessary to treat or prevent imminent or life-threatening deterioration of the following conditions: ??Cardiac failure ??Critical care was time spent personally by me on the following activities: ??Development of treatment plan with patient or surrogate, discussions with consultants, evaluation of patient's response to treatment, examination of patient, interpretation of cardiac output measurements, obtaining history from patient or surrogate, ordering and performing treatments and interventions, ordering and review of laboratory studies, ordering and review of radiographic studies, re-evaluation of patient's condition and review of old charts ??Care discussed with: admitting provider ?? Result [facility] Lila Smith MD IN CLINIC/BEDSIDE ORDERA BLES Edited Result - Final * Depression Screening (12/01/2023) [facility] Depression Screening Abstarcted Result [facility] Historical Provider HEALTH MAINTENANCE Final Result * Lipid panel (09/12/2022) [facility] LDL/HDL Ratio 2 0 - 4 Triglycerides 79 0 - 150 mg/dL Cholesterol 153 0 - 200 mg/dL HDL 82 >=40 mg/dL LDL Cholesterol 56 0 - 100 mg/dL Blood Venous blood specimen / Unknown Result [facility] Historical Provider LAB BLOOD ORDERABLES Dalila l Result from Last 3 Months or Most Recently Relevant to Health Maintenance Insurance MEDICARE [facility] Advance Directives Documents on File Type Date Recorded Patient Regional Medical Director Expl anation Advance Directives and Living Will 04/05/2024 11:17 AM PROXY Advance Directives and Living Will 02/29/2024 10:32 AM Health Care Decision (hx) 08/14/2021 AD PARDO DIRECTIVE Health Care Decision (hx) 08/14/2021 AD PARDO DIRECTIVE Health Care Decision (hx) 08/14/2021 AD PARDO DIRECTIVE Health Care Decision (hx) 08/14/2021 AD PARDO DIRECTIVE * Full Code - Default (Latest Code Status on File) Date Activated Date Inactivated Comments 04/01/2024 11:09 AM 04/02/2024 6:41 PM This is order is used when code status has not been discussed with the patient, or code status is otherwise unknown/unconfirmed To update the patient's code status, place a code status order. Do not modify or discontinue any currently active code status orders. * Full Code - Confirmed Date Activated Date Inactivated Comments 02/06/2024 1:15 PM 02/12/2024 5:16 PM This code status was ascertained in the following way: Code status discussion: discussion with patient To update the patient's code status, place a code status order. Do not modify or discontinue any currently active code status orders. * No CPR/Do Not Intubate Date Activated Date Inactivated Comments 02/06/2024 3:51 AM 02/06/2024 1:15 PM This code status was ascertained in the following way: Code status discussion: discussion with patient Patient wishes CPR only and does not wish to be intubated To update the patient's code status, place a code status order. Do not modify or discontinue any currently active code status orders. Healthcare Agents on File Name Relationship Healthcare Agent [facility] Communication Randy Hess [facility] Care Agent Care Teams Subscription Crew Leader Relationship Specialty Start Date End Date Mason Hoffman MD [address] [place] [id number] PCP - General Internal Medicine 02/05/24
--- OUTSIDE RECORDS SUMMARY | 2024-04-20 05:52 | XMS_ITS | Encounter Summary ---
Author Organization [facility] Address [address] [place] [address] Care Team Providers Care Technical Professional Name Role Phone Mason Hoffman MD Primary Care Provider [phone] Reason for Visit * Reason Comments Shortness of Breath SOB on exertion * Auth/Cert (Routine) Specialty Diagnoses / Procedures Referred By Contac t Referred To Contact Diagnoses Shortness of breath Weakness COPD exacerbation (CMS/HCC) Dyspnea, unspecified type Acute on chronic hypoxic respiratory failure (CMS/HCC) Procedures [facility] IP/OBS CARE INITIAL MODERATE LEVEL PER DAY . Jose Mcmahon MD [address] [place] [id number] Phone: tel: fax: [facility] [address] [place] [address] Phone: tel: Referral ID Status Reason Start Date Expiration Date Visits Re quested Visits Authorized [id number] 1 1 Encounter Details Date Type Department Care Team (Late st Contact Info) Description 03/31/2024 3:16 PM EST - 04/02/2024 3:00 PM EST Hospital Encounter [facility] [address] [place] [address] Lila Smith MD [address] [place], [place] [phone] Geraldo Edmonds MD [address] [place] [address] [phone] Jose Mcmahon MD [address] [place] [address] Nicolas Albrecht MD [address] [place] [address] Dyspnea, unspecified type (Primary Dx); COPD exacerbation ([facility]); Shortness of breath; Weakness; Acute on chronic hypoxic respiratory failure ([facility]); KENDRA (acute kidney injury) ([facility]) Discharge Disposition: [facility] Facility Social History Tobacco Use Types Packs/Day Years [...] your loved ones. 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 [...] AM EST documented as of this encounter Last Filed Vital Signs Vital Sign Reading [...] Mass Index 27.21 03/31/2024 3:33 PM EST documented in this encounter Functional Status * Are you [...] Ramona Robbins RN documented in this encounter Discharge Summaries * SUZI Talavera - 04/02/2024 1:07 PM EST Date of admission: 04/01/24 Date of discharge: 04/02/24 Disposition: [facility]-less than 30 days anticipated Discharge Final Diagnosis: Acute on chronic hypoxic respiratory failure ([facility]) COPD exacerbation Hospital Course: From HPI: This is an elderly female with the below mentioned medical problems including heart failure with preserved ejection fraction, COPD oxygen dependent at 2.5 L and the below mentioned medicalproblems. She comes in with complaints of shortness of breath. She tells me that she recently was discharged from rehab and was doing quite well in rehab and did well at home for the first several day s but then she started getting weaker and finding it harder to do things and it has gotten to the point that she is struggling to breathe even with her baseline oxygen. She notes that she has had a cough which is chronic for her and not worse than normal. She has had no chest pain or pressure. She notes that though her lower extremities are not edematous as they had been. She has had no fevers orshaking chills. No abdominal pain nausea vomiting diarrhea she is moving her bowels normally and making urine normally. CTA was negative for pulmonary embolus did show mild consolidation in the left lung base relative to prior exam. EKG showed a ventricularly paced rhythm 101 bpm Respiratory viral panel is negative High sensitive troponin was negative. BNP was elevated from prior reading of 330 to 401 1. Acute on chronic respiratory failure with hypoxia/COPD exacerbation: While in the ED she was tachycardic, tachypneic, hypertensive. Chest x-ray showed emphysematous changes with persistent interstitial opacities suggestive of chronic interstitial changes with no new consolidations or effusion or pneumothorax. Chest CTA was negative for PE but did show mild residual consolidation at the left lung base relative to prior exam. She was treated with DuoNeb and supportive care. She improved clinically and appears stable for discharge on 04/02. She is on 2.5 L O2 via nasal cannula at baseline. Upon discharge recommend doxycycline 100 mg p.o. twice daily for 5 days, DuoNeb 4 times daily for 5 daysthen can reduce back to 4 times daily as needed shortness of breath/wheezing and continuation of chronic budesonide nebulizer. Recommend repeat chest CT in 6 weeks outpatient to ensure resolution of consolidation which will be deferred to the outpatient setting. 2. Chronic HFPEF: BNP mildly elevated 401. Clinically did not appear volume overloaded on my exam. Chest imaging without evidence of effusion. She did receive some IV Lasix on admission which was discontinued 04/02 in the setting of KENDRA. Hold p.o. Lasix upon discharge in the setting of KENDRA. Continuelow-salt diet, daily weight monitoring and beta-eloy. As discussed below once creatinine improved can resume Lasix 20 mg p.o. daily. 3. KENDRA: Creatinine on arrival 1.24. She received IV Lasix and creatinine up trended to 2.02 on 04/02.Recommend to hold p.o. Lasix upon discharge. Monitor BMP in another 2 to 3 days and may resume Lasix once creatinine is back to around 1.2. Avoid nephrotoxins and renally adjust medication as necessary. 4. Possible cellulitis: Distal right lower extremity with what appears to be mild cellulitic changes. As above completing course of doxycycline in the setting of COPD exacerbation. 5. Hypertension: Reports she is no longer on amlodipine and taking metoprolol succinate 50 mg daily. Recommend to add holding parameters for SBP less than 100 or heart rate less than 60. 6. Hypokalemia: Potassium on arrival 3.3. Replaced. Repeat potassium 3.2 on 04/02. She received 40 mEq KCl prior to discharge. Recommend BMP monitoring in 2 to 3 days at [facility]. 7. Hypomagnesemia: Magnesium 1.8 on 04/02. Received 2 g IV mag sulfate prior to discharge. 8. Normocytic anemia: H&H stable 8.9/30.5. MCV 90.2. No evidence of bleeding. 9. Gait instability: She was evaluated by PT who recommended short-term rehab. Plan for transfer [facility] at 3 pm. Issues Requiring Follow-Up Care: *Repeat BMP 2-3 days and resume lasix if creatinine back to ~1.2 Outpatient Follow-Up Care: Future Appointments Date Time Provider Department Center 04/12/2024 3:00 PM Guille Gupta MD [facility] 09/27/2024 9:55 AM Jimmy Noguera MD [facility] None Discharge Medication List: Your medication list START taking these medications Instructions Last Dose Given Next Dose Due doxycycline 100 mg capsule Commonly known as: VIBRAMYCIN Take 1 capsule (100 mg total) by mouth 2 (two) times a day for 5 days. Take with at least 8 ounces (large glass) of water, do not lie down for 30 minutes after. Administer 2 hours before or after multivitamins, antacids, or other products containing polyvalent cations (i.e., calcium, iron, magnesium, selenium, zinc). CHANGE how you take these medications Instructions Last Dose Given Next Dose Due furosemide 20 mg tablet Commonly known as: LASIX What changed: additional instructions Take 1 tablet (20 mg total) by mouth 1 (one) time each day. HOLD DUE TO KENDRA. REPEAT LABS AND RESUMEONCE CREATININE IMPROVED ipratropium-albuteroL 0.5-2.5 mg/3 mL nebulizer solution Commonly known as: DUONEB What changed: when to take this reasons to take this additional instructions Take 3 mL by nebulization 4 (four) times a day for 5 days. Change to QID for the next 5 days then go back to QID PRN SOB/wheezing metoprolol succinate 50 mg 24 hr tablet Commonly known as: TOPROL-XL What changed: additional instructions Take 1 tablet (50 mg total) by mouth 1 (one) time each day. Hold for SBP<100, HR<60 CONTINUE taking these medications Instructions Last Dose Given Next Dose Due atorvastatin 40 mg tablet Commonly known as: LIPITOR Take 1 tablet (40 mg total) by mouth 1 (one) time each day. budesonide 0.5 mg/2 mL nebulizer solution Commonly known as: PULMICORT Take 2 mL (0.5 mg total) by nebulization 2 (two) times a day. pantoprazole 40 mg EC tablet Commonly known as: PROTONIX Take 1 tablet (40 mg total) by mouth 1 (one) time each day. polyethylene glycol 17 gram packet Commonly known as: MIRALAX Take 17 g by mouth 1 (one) time each day. senna-docusate 8.6-50 mg per tablet Commonly known as: PERICOLACE Take 1 tablet by mouth 1 (one) time each day. STOP taking these medications amLODIPine 5 mg tablet Commonly known as: NORVASC clonazePAM 0.25 mg disintegrating tablet Commonly known as: KlonoPIN ASK your doctor about these medications Instructions Last Dose Given Next Dose Due iron,carbonyl-vitamin C 65 mg iron- 125 mg tablet,delayed release (DR/EC) Take 1 tablet by mouth 1 (one) time each day. Where to Get Your Medications Information about where to get these medications is not yet available Ask your nurse or doctor about these medications doxycycline 100 mg capsule furosemide 20 mg tablet ipratropium-albuteroL 0.5-2.5 mg/3 mL nebulizer solution metoprolol succinate 50 mg 24 hr tablet Patient Condition and Disposition at Time of Discharge: Patient was seen and examined this morning at bedside. Reports cough, was able to produce some sputum this morning Denies current shortness of breath while at rest Denies chest pain, abdominal pain or nausea Vitals: 04/02/24 1335 BP: 128/50 Pulse: 104 Resp: 19 Temp: 36.2 ??C (97.2 ??F) SpO2: 98% PHYSICAL EXAMINATION: General Exam: Age-appropriate, awake, calm, cooperative, lying in the hospital bed in no acute distress. Skin Exam: Warm, dry and intact without diaphoresis. Distal right lower extremity with dry flaky skin, subtle erythema and warmth with some mild tenderness to palpation HEENT exam: Head appears atraumatic. No scleral icterus. Respiratory Exam: Diminished breath sounds. Nasal cannula in place. No increased work of breathing at rest Cardiovascular Exam: Regular rate and rhythm. Gastrointestinal Exam: Abdomen is soft, nontender, and nondistended. Bowel sounds appreciated Musculoskeletal Exam: No lower extremity edema is appreciated. Neurological Exam: Alert and oriented x 3. Lab Results Component Value Date WBC 8.7 04/02/2024 HGB 8.9 (L) 04/02/2024 HCT 30.5 (L) 04/02/2024 MCV 90.2 04/02/2024 PLT 280 04/02/2024 Lab Results Component Value Date GLUCOSE 107 (H) 04/02/2024 CALCIUM 9.3 04/02/2024 NA 142 04/02/2024 K 3.2 (L) 04/02/2024 CO2 32 04/02/2024 CL 105 04/02/2024 BUN 19 04/02/2024 CREATININE 2.02 (H) 04/02/2024 CT Angio Chest wo and/or w Contrast Final Result 1. No acute pulmonary embolus. 2. Mild residual consolidation at the left lung base relative to the prior exam. This document has been electronically signed by: Thad Huerta MD on 03/31/2024 22:35:11 XR Chest 2 Views Final Result FINDINGS/IMPRESSION: Hyperinflation with flattening of the diaphragms suggestive emphysematous changes with persistent interstitial opacities throughout suggestive of chronic interstitial changes . There is no new consolidation or effusion. No pneumothorax. Dual lead left pacer. -------- FINAL REPORT -------- Dictated By: Shikha Chaudhry Dictated Date: 03/31/2024 16:30 ET Assigned Physician: Shikha Chaudhry Reviewed and Electronically Signed By: Shikha Chaudhry Signed Date: 03/31/2024 16:32 ET Workstation ID: [id number] Transcribed By: Self Edit Transcribed Date: 03/31/2024 16:30 ET Recent Results (from the past 168 hour(s)) Respiratory virus panel molecular study Collection Time: 03/31/24 4:02 PM Specimen: Nares; Swab Result Value Ref Range Adenovirus Detection by PCR Not Detected Not Detected Influenza A PCR Not Detected Not Detected Influenza B PCR Not Detected Not Detected Coronavirus 229E Not Detected Not Detected Coronavirus HKU1 Not Detected Not Detected Coronavirus OC43 Not Detected Not Detected Coronavirus NL63 Not Detected Not Detected Parainfluenza Virus 1 Not Detected Not Detected Parainfluenza Virus 2 Not Detected Not Detected Parainfluenza Virus 3 Not Detected Not Detected Parainfluenza Virus 4 Not Detected Not Detected RSV PCR Not Detected Not Detected Human Metapneumovirus A and B Not Detected Not Detected Rhinovirus/Enterovirus Not Detected Not Detected Bordetella pertussis Not Detected Not Detected Bordetella parapertussis Not Detected Not Detected Mycoplasma pneumo by PCR Not Detected Not Detected Chlamydia pneumoniae Not Detected Not Detected SARS COV-2 Not Detected Not Detected Discharge Instructions: Discharge Procedure Orders Basic metabolic panel Standing Status: Future Standing Exp. Date: 04/02/25 Total time spent performing chart review, assessing the patient, documenting, discussing with attending MD/bedside RN/ICC, updating family, arranging care and performing a high level of medical decision making approximately 45 minutes. Case discussed with Dr. Albrecht. Cosigned by Nicolas Albrecht MD at 04/04/2024 3:42 PM EST Associated attestation - Nicolas Albrecht MD - 04/04/2024 3:42 PM EST This is a split/shared visit with SUZI Talavera. I personally performed the medical decision making (MDM) for the care of this patient as documentedbelow Patient was discussed with advanced practitioner . I personally saw and examined the patient bedside. Chart was reviewed by me personally including relevant history, updates, labs, imaging. Agree with the documentation and plan per THAD except mentioned below. 89 years old female presented to with history of COPD on oxygen at baseline presents to the hospital with shortness of breath. COPD exacerbation-chest imaging suggestive of no new consolidation or continue with inhaler, supportive oxygen, antibiotic. -Symptoms improved during this hospital course. Medical okay for discharge with outpatient follow-up with PCP. Repeat chest CT is recommended below Cont management for other chronic conditions as below Nicolas Albrecht MD 04/04/24 3:42 PM EST documented in this encounter Medications at Time of Discharge atorvastatin (LIPITOR) 40 mg tablet Take 1 tablet (40 mg total) by mouth 1 (one) time each day. 06/28/2021 budesonide (PULMICORT) 0.5 mg/2 mL nebulizer solution Take 2 mL (0.5 mg total) by nebulization 2 (two) times a day. 12/04/2023 furosemide (LASIX) 20 mg tablet Take 1 tablet (20 mg total) by mouth 1 (one) time each day. HOLD DUE TO KENDRA. REPEAT LABS AND RESUME ONCE CREATININE IMPROVED 04/02/2024 ipratropium-albut Augusto (DUONEB) 0.5-2.5 mg/3 mL nebulizer solutionIndicatio ns:COPD exacerbation (CMS/HCC),Acute on chronic hypoxic respiratory failure (CMS/HCC) Take 3 mL by nebulization 4 (four) times a day for 5 days. Change to QID for the next 5 days then go back to QID PRN SOB/wheezing 04/02/2024 iron,carbonyl-vit lomeli C 65 mg iron- 125 mg tablet,delayed release (DR/EC) Take 1 tablet by mouth 1 (one) time each day. 06/28/2021 metoprolol succinate (TOPROL-XL) 50 mg 24 hr tablet Take 1 tablet (50 mg total) by mouth 1 (one) time each day. Hold for SBP<100, HR<60 04/02/2024 pantoprazole (PROTONIX) 40 mg EC tablet Take 1 tablet (40 mg total) by mouth 1 (one) time each day. 03/28/2024 polyethylene glycol (MIRALAX) 17 gram packet Take 17 g by mouth 1 (one) time each day. 90 packet 03/22/2024 senna-docusate (PERICOLACE) 8.6-50 mg per tablet Take 1 tablet by mouth 1 (one) time each day. 90 each 03/22/2024 6 doxycycline (VIBRAMYCIN) 100 mg capsule Take 1 capsule (100 mg total) by mouth 2 (two) times a day for 5 days. Take with at least 8 ounces (large glass) of water, do not lie down for 30 minutes after. Administer 2 hours before or after multivitamins, antacids, or other products containing polyvalent cations (i.e., calcium, iron, magnesium, selenium, zinc). 04/02/2024 5 documented as of this encounter Ordered Prescriptions Prescription Sig Dispense Quantity Refills Last Filled Start Date End Date metoprolol succinate (TOPROL-XL) 50 mg 24 hr tablet Take 1 tablet (50 mg total) by mouth 1 (one) time each day. Hold for SBP<100, HR<60 04/02/2024 ipratropium-albut Augusto (DUONEB) 0.5-2.5 mg/3 mL nebulizer solutionIndicatio ns:COPD exacerbation (CMS/HCC),Acute on chronic hypoxic respiratory failure (CMS/HCC) Take 3 mL by nebulization 4 (four) times a day for 5 days. Change to QID for the next 5 days then go back to QID PRN SOB/wheezing 04/02/2024 furosemide (LASIX) 20 mg tablet Take 1 tablet (20 mg total) by mouth 1 (one) time each day. HOLD DUE TO KENDRA. REPEAT LABS AND RESUME ONCE CREATININE IMPROVED 04/02/2024 5 doxycycline (VIBRAMYCIN) 100 mg capsule Take 1 capsule (100 mg total) by mouth 2 (two) times a day for 5 days. Take with at least 8 ounces (large glass) of water, do not lie down for 30 minutes after. Administer 2 hours before or after multivitamins, antacids, or other products containing polyvalent cations (i.e., calcium, iron, magnesium, selenium, zinc). 04/02/2024 5 documented in this encounter Discharge Disposition Disposition Code Departure Means Destination Comment s Prison Facility documented in this encounter Progress Notes * Edgardo Basilio RN - 04/02/2024 2:45 PM EST Problem: Cognitive: Acute Pain Goal: Expressions of feelings of enhanced comfort will increase Outcome: Adequate for Discharge Goals: Discharge to SNF for pulmonary rehab. Identify possible barriers to meeting goals/advancing plan of care: Ambulance Stability of the patient: Moderately Stable - Low risk of patient condition declining or worsening End of Shift Summary: Pt alert and oriented x3. Pt denies SOB, dyspnea on exertion. Respiratory treatments given on schedule and pt reporting she feels much improved from arrival to [facility]. Pending transfer to [facility] for pulmonary rehab. * Yamile Reese RN - 04/02/2024 1:22 PM EST 04/02/24 1321 Initial Transition Plan Initial Transition Plan [facility] Facility ([facility]) Transportation Transportation at discharge Ambulance Company providing transportation Charanjit What day is the transport expected? 04/02/24 What time is the transport expected? 1500 Final Discharge Disposition Inpatient Rehab ([facility]) Pt cleared for [facility] to [facility], Pt in agreement w/ pulmonary rehab program. * Belen Hummel RN - 04/02/2024 11:55 AM EST Images from the original note were not included. Wound Care Initial Consult Visit Date: 04/02/2024 Patient Name: Alma Cassidy Date of : 1935 Reason for Consult: Wound RN Consult received to assess mid back and bilateral buttock and recommend topical treatment. Wound History: Patient reports lesion on her mid back is present for 47 years and at times scab falls off. She never went to dermatology for evaluation. Nutritional Status: Pertinent Labs: Albumin Date Value Ref Range Status 03/08/2024 2.6 (L) 3.2 - 5.0 g/dL Final WBC Date Value Ref Range Status 04/02/2024 8.7 4.8 - 10.8 K/mcL Final Hemoglobin A1C Date Value Ref Range Status 09/12/2022 5.2 6.5 % Final Glucose POCT Date Value Ref Range Status 02/12/2024 139 (H) 70 - 100 mg/dL Final Wound Assessment: Wound Other (comment) 04/01/24 Back Lower;Medial (Active) Wound Image 04/02/24 1057 Wound Bed Tissue Assessment Burgundy;Dry 04/02/24 1057 Carmella-Wound Assessment Black 04/02/24 1057 Wound Length (cm) 3 cm 04/02/24 1057 Wound Width (cm) 3 cm 04/02/24 1057 Wound Surface Area (cm^2) 9 cm^2 04/02/24 1057 Dressing Betadine 04/02/24 1057 Dressing Status Other (Comment) 04/02/24 0617 State of Healing Non-healing 04/02/24 1057 Wound Pressure Injury 04/01/24 Buttocks Right (Active) Wound Image 04/02/24 1055 Wound Bed Tissue Assessment Blanchable erythema 04/02/24 1055 Carmella-Wound Assessment Unable to assess 04/01/24 1417 Wound Length (cm) 3 cm 04/02/24 1055 Wound Width (cm) 5.5 cm 04/02/24 1055 Wound Surface Area (cm^2) 16.5 cm^2 04/02/24 1055 Dressing Foam 04/02/24 1055 Dressing Status Other (Comment) 04/01/24 1417 Wound Pressure Injury 04/01/24 Buttocks Left (Active) Wound Image 04/02/24 1055 Wound Bed Tissue Assessment Blanchable erythema 04/02/24 1055 Carmella-Wound Assessment Unable to assess 04/01/24 1418 Wound Length (cm) 2 cm 04/02/24 1055 Wound Width (cm) 3.5 cm 04/02/24 1055 Wound Surface Area (cm^2) 7 cm^2 04/02/24 1055 Dressing Foam 04/02/24 1055 Dressing Status Other (Comment) 04/01/24 1418 Support Surface: Patient is 17 on Rafael scale and at mild risk. Wound Summary Assessment: Bilateral buttock with blanchable erythema. Patient stated she recently had open sores dues to diarrhea caused by antibiotics. Mid lower back with dry scabbed, burgundy center and wound margins that appear as tattoo but at closer evaluation it is not a tattoo which patientalso declines. Margins are blackened/blue, irregular and raised. She denies any pain. I recommend biopsy to r/o malignancy. Patient is adamant that she does not want to do anything about and stated Nilton 89 years old and I have other problems to worry about. I had this for 47 years . Wound Plan: Mid back was cleansed with betadine and open to air. Bilateral buttock- applied allevyn. 04/02/2024 11:55 AM EST * Yamile Reese RN - 04/02/2024 11:41 AM EST 04/02/24 1140 Initial Transition Plan Initial Transition Plan [facility] ([facility]) Discharge Planning Living Arrangements Children Type of Residence Private residence Assistive Devices Walker;Oxygen Support Systems Children;Extended family Medication Coverage Has Med Coverage Under Insurance Plan Yes Medication Affordability No concerns related to payment for meds Anticipated Discharge Needs Discipline following for SNF placement Bacteriology Technician Informed Choice Informed Choice Given? Yes Anticipated [facility] 04/02-09/2024. Barriers: pulmonary rehab needs. Dispo: accepted by [facility]. * Neisha Peña RN - 04/01/2024 12:55 PM EST ED RN HANDOFF (All Borges Below Must Be Completed) Reason/Diagnosis for Admission: Type of Admission: [x] Medsurg, [] Telemetry Already in a Hospital Bed: [x] Yes / [] No Room Considerations/Precautions (ex: fever, diarrhea, or any infectious concerns): [] Yes / [x] No Chain Hoist Operator: [] Yes / [x] No If YES, Cardiac Rhythm: [] NSR, [] SB, [] ST, [] A-FIB, [] A-Flutter, [] Pacemaker, [] 1st Degree HB, [] 2nd Degree HB, [] 3rd Degree HB Reason for Chain Hoist Operator: VS: Visit Vitals BP (!) 155/51 (BP Location: Right arm, Patient Position: Sitting) Pulse (!) 114 Temp 36.8 ??C (98.2 ??F) (Oral) Resp 18 Ht 1.6 m (63 ) Wt 69.9 kg (154 lb) SpO2 94% BMI 27.28 kg/m?? Smoking Status Former BSA 1.73 m?? Current Mental Status: A/O x [x]4, []3, []2, []1 Current Ambulation Status: IV Access: [x] Yes / [] No Field IV present: [] Yes / [x] No Hx of Violence: [] Yes / [x] No / [] Unknown Fall Risk:[x] Yes / [] No Yellow Bracelet Applied [x] Yes / [] No Yellow Socks Applied [] Yes / [] No Patient Belongings inventoried and BL completed: [x] Yes / [] No Patient belongings stored in the security closet: [] Yes (If Yes please supply Security bag #): [] No Patient Medications stored in Pharmacy: [] Yes (If Yes please supply Medication Security bag #): [] No ED Summary of Care: pt sob on home 02-worse with exertion. Pt alert and oriented Submitted by and Phone Extension: [phone] * Geraldo Edmonds MD - 04/01/2024 11:11 AM EST Alma Cassidy Patient was noted to have concern for hypoxemia. I was told that patient was previously evaluated by medicine yesterday, and declined for admission. However given the hypoxemia, I have reconsulted medicine, Dr. Mcmahon today. Patient has been accepted for admission. * Karley Huston RN - 04/01/2024 9:29 AM EST Per PT -during evaluation, pt 02 decreased from 94-95% on 2l nc to 85% with minimal excertion- up at bedside/walker and a couple of steps. Pt returned to bed and 02 currently 95% on 2l. Reported to Provider for further eval. Pt alert & oriented x4. She states she has been feeling more sob at home with very little activity. Karley Huston RN 04/01/24 0935 * Janene Sargent, PT - 04/01/2024 8:30 AM EST [facility] Physical Therapy Evaluation & Treatment PT Discharge Recommendations: senior living facility placement Equipment Recommended: defer to SNF Staff Recommendations for safe patient handling: CG with walker but only able to walk 2-3' due to fatigue Modified [place] Scale Score: Precautions Medical Precautions: Fall Risk Safety Interventions: Call medrano within reach, ID band on RUE Weight Bearing Status: Full LUE Weight Bearing Status: Full RLE Weight Bearing Status: Full LLE Weight Bearing Status: Full Fall prevention education provided including use of call light in hospital, use of appropriate assistive device, safe mobility techniques, and safety measures at home. PT Received On: 04/01/24 PT Start Time: 0830 PT Stop Time: 0900 PT Time Calculation (min): 30 min General Family/Caregiver Present: No Precautions Medical Precautions: Fall Risk Safety Interventions: Call medrano within reach, ID band on RUE Weight Bearing Status: Full LUE Weight Bearing Status: Full RLE Weight Bearing Status: Full LLE Weight Bearing Status: Full Cognition Overall Cognitive Status: Within Functional Limits Arousal/Alertness: Appropriate responses to stimuli Orientation Level: Oriented X4 Following Commands: Follows all commands and directions without difficulty Hearing: Intact Vision: Intact Speech: Intact Integumentary: right lower leg bright red in color with dry scaly skin , she states it had been swollen but is much better now History of Present Illness: Patient is a 89 y.o. female admitted to [facility] on 03/31/2024. 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) Gastrointestinal hemorrhage with hematemesis Nonrheumatic mitral valve stenosis Nonrheumatic aortic valve stenosis Acute on chronic hypoxic respiratory failure ([facility]/HCC) Past Medical History: Diagnosis Date Anemia DX:Anemia CHF (congestive heart failure) (CMS/HCC) 08/31/2021 DX:CHF (congestive heart failure) ([facility]) Claudication ([facility]) 11/2016 DX:Claudication (HCC) COPD (chronic obstructive pulmonary disease) ([facility]) 2016 DX:COPD (chronic obstructive pulmonary disease) (HCC) COPD (chronic obstructive pulmonary disease) ([facility]) 08/31/2021 DX:COPD (chronic obstructive pulmonary disease) ([facility]) HLD (hyperlipidemia) 08/31/2021 DX:HLD (hyperlipidemia) HTN (hypertension) 08/31/2021 DX:HTN (hypertension) Hyperlipidemia 2016 DX:Hyperlipidemia Hypertension DX:Hypertension Moderate aortic stenosis 08/31/2021 DX:Moderate aortic stenosis Moderate mitral stenosis 08/31/2021 DX:Moderate mitral stenosis On supplemental oxygen therapy 08/31/2021 DX:On supplemental oxygen therapy PAD (peripheral artery disease) ([facility]) 08/31/2021 DX:PAD (peripheral artery disease) ([facility]) Past Surgical History: Procedure Laterality Date AORTA - BILATERAL FEMORAL ARTERY BYPASS GRAFT Right PROCEDURE:FEMORAL ARTERY - POPLITEAL ARTERY BYPASS GRAFT AORTA - BILATERAL FEMORAL ARTERY BYPASS GRAFT Right 11/20/2017 PROCEDURE:FEMORAL ARTERY - POPLITEAL ARTERY BYPASS GRAFT;COMMENT:Procedure: REVISION OF RIGHT POPLITEAL BYPASS AND ENDARTERECTOMY OF RIGHT FEMORAL ARTERY; Surgeon: Can Tripathi MD; Location: [facility]; Service: Vascular; Laterality: Right; APPENDECTOMY PROCEDURE:APPENDECTOMY CATARACT EXTRACTION W/ INTRAOCULAR LENS IMPLANT Bilateral PROCEDURE:CATARACT EXTRACTION W/ INTRAOCULAR LENS IMPLANT COLONOSCOPY N/A 09/25/2017 PROCEDURE:COLONOSCOPY;COMMENT:Procedure: COLONOSCOPY-BSF/Biopsy and polypectomy; Surgeon: Rick Molina MD; Location: [facility]; Service: Gastroenterology; Laterality: N/A; OTHER SURGICAL HISTORY PROCEDURE: SD BYPASS W/VEIN FEMORAL-FEMORAL OVARIAN CYST SURGERY PROCEDURE:OVARIAN CYST SURGERY UPPER GASTROINTESTINAL ENDOSCOPY N/A 09/25/2017 PROCEDURE:UPPER GASTROINTESTINAL ENDOSCOPY;COMMENT:Procedure: UPPER ENDOSCOPY- EGD/Biopsy; Surgeon: Rick Molina MD; Location: [facility]; Service: Gastroenterology; Laterality: N/A; Social History Home Living Environment: Home Living Type of Home: House Lives With: Son (but son has his own medicall issues and is unable to physically assist her) Home Adaptive Equipment: Walker - rolling Home Layout: Two level, 1/2 bath on main level, Bed/bath upstairs (the pt has been sleeping on a couch on the first floor) Home Access: Stairs to enter with rails Entrance Stairs-Rails: Rail on the right going up Entrance Stairs-Number of Steps: 3 Prior Function Level of [place]: Independent with mobility and functional transfers Ambulation Status: Household ambulator Receives Help From: Family, Home health Indoor Mobility Assistance: Independent Stairs Assistance : Independent Prior Device Use: Walker (she also walks short distances in her home with no AD) Do you drive?: No Which is your dominant hand?: Right General Assessment 04/01/24 0830 PT Last Visit PT Received On 04/01/24 General Family/Caregiver Present No PT Time Calculation PT Start Time 0830 PT Stop Time 0900 PT Time Calculation (min) 30 min Precautions Medical Precautions Fall Risk Safety Interventions Call medrano within reach;ID band on RUE Weight Bearing Status Full LUE Weight Bearing Status Full RLE Weight Bearing Status Full LLE Weight Bearing Status Full Oxygen Therapy Pulse Oximetry Type Intermittent Pulse Oximetry Location Finger;Left Patient Activity (02 sats monitored at rest as well as with activity. 02 sats 91% at rest in bed and then dropped to84-85% with sitting and standing activities on 2.5 L nasal 02) Oxygen Therapy Supplemental oxygen O2 Delivery Method Nasal cannula O2 Flow Rate (L/min) 2.5 L/min Pain Assessment Pain Assessment No/denies pain Cognition Overall Cognitive Status WFL Arousal/Alertness Appropriate responses to stimuli Orientation Level Oriented X4 Following Commands Follows all commands and directions without difficulty Home Living Type of Home House Lives With Son (but son has his own medicall issues and is unable to physically assist her) Home Adaptive Equipment Walker - rolling Home Layout Two level;1/2 bath on main level;Bed/bath upstairs (the pt has been sleeping on a couch on the first floor) Home Access Stairs to enter with rails Entrance Stairs-Rails Rail on the right going up Entrance Stairs-Number of Steps 3 Prior Function Level of [place] Independent with mobility and functional transfers Ambulation Status Household ambulator Receives Help From Family;Home health Indoor Mobility Assistance Independent Stairs Assistance Independent Prior Device Use Walker (she also walks short distances in her home with no AD) Do you drive? No Which is your dominant hand? Right Activity Tolerance Endurance Tolerates less than 10 min exercise with changes in vital signs Activity Tolerance Comments her 02 sats drop quickly with activity Static Sitting Balance Static Sitting-Level of Assistance Supervision Static Sitting-Balance Support Right upper extremity supported;Left upper extremity supported;Feet supported Dynamic Sitting Balance Dynamic Sitting-Level of Assistance Contact guard Dynamic Sitting-Balance Forward lean Dynamic Sitting-Balance Support Right upper extremity supported;Left upper extremity supported;Feetsupported Static Standing Balance Static Standing-Level of Assistance Contact guard Static Standing-Balance Support Right upper extremity supported;Left upper extremity supported Dynamic Standing Balance Dynamic Standing-Level of Assistance Contact guard Dynamic Standing-Balance Ambulation Dynamic Standing-Balance Support Right upper extremity supported;Left upper extremity supported Bed Mobility Sitting to Lying Assistance Contact guard Lying to Sitting Assistance Contact guard Transfers Sit to Stand Assistance Contact guard Sit to Stand Deficit Steadying Chair/Bed to Chair/Bed Transfer Assistance Contact guard Chair/Bed to Chair/Bed Transfer Deficit Steadying Transfer Comments The pt noted to become wheezy and SOB with minimal activity and 02 sats dropping Ambulation Walking Assistance Contact guard Walking Deficit Steadying;LE weakness (SOB) Device Rolling walker Comments The pt was only able to take 3-4 steps and then became very SOB and 02 sats dropping to 84% RUE Assessment RUE Assessment Within Functional Limits LUE Assessment LUE Assessment Within Functional Limits RLE Assessment RLE Assessment Impaired LLE Assessment LLE Assessment Impaired LLE Assessment Comments B LE strength grossly 3-/5 PT Assessment PT Assessment Results Decreased strength;Decreased endurance;Impaired balance;Impaired gait;Decreased mobility Prognosis Good Evaluation/Treatment Tolerance Patient limited by fatigue Medical Staff Made Aware Yes Plan Treatment/Interventions Functional transfer training;LE strengthening/ROM;Endurance training;Patient/family training;Bed mobility;Gait training;Balance training PT Plan Skilled PT PT Frequency 2-5 days per week PT Discharge Recommendations senior living facility placement Equipment Recommended defer to SNF PT - Evaluation Status Complete PT Evaluation Time Entry PT Evaluation (Moderate) Time Entry 30 Treatment performed during evaluation: None performed ADDITIONAL COMMENTS: Chart reviewed. RN clears pt for session. Pt agrees to participate and presented in supine upon PT arrival. All lines in place. Gait belt utilized throughout treatment to maximize safety. Medical precautions observed appropriately. Nurse present during mobility and will inform MD of drop in 02 during mobility Initiated education on the importance of PT, bed mobility safety, Transfer Safety, Ambulation Safety , Therapy Plan of Care, Home Safety, Energy Conservations strategies, and importance of OOB activity . Pt verbalized understanding. EXIT STATUS: Session ended with patient supine, tray table and call light within reach, and RN made aware. Physical Therapy Assessment/Plan Alma Cassidy is a 89 y.o. female admitted to [facility] on 03/31/2024 for Acute on chronic hypoxic respiratory failure (CMS/HCC) [J96.21] . Pt presents with decreased BLE strength, balance deficits, decreased activity tolerance, and far below functional baseline. Pt performed bed mobilityContact guard, Bedrail, Transfers with Contact guard, FWW and ambulates Contact guard with FWW 3 ft. Pt will benefit from skilled acute PT during hospital stay to improve the deficits listed above and optimize function. PT recommends senior living facility placement when medically stable for safe discharge and to optimize functional mobility and independence. Goals Encounter Problems Encounter Problems (Active) Template: Physical Therapy Problem: PT Short Term Goals Dates: Start: 04/01/24 Goal: PT STG 1 The pt will be independent with all transfers Dates: Start: 04/01/24 Expected End: 04/08/24 Goal: PT STG 2 the pt will go up and down 3 steps with 1 railing and supervision Dates: Start: 04/01/24 Expected End: 04/08/24 Goal: PT STG 3 the pt will ambulate 40' with walker mod I with 02 sats remaining above 90% on 2.5 left 02 Dates: Start: 04/01/24 Expected End: 04/08/24 Encounter Problems (Resolved) There are no resolved problems. Education Documentation Mobility Training, taught by Janene Sargent PT at 04/01/2024 12:57 PM. Learner: Patient Readiness: Eager Method: Explanation, Demonstration Response: Verbalizes Understanding, Demonstrated Understanding Comment: Pt educated on discharge recommendations as well as pursed lip breathing. She needed cues to use pursed lip breathing and to not talk when SOB and 02 sats drop Education Comments No comments found. Janene Sargent PT * Karely De Jesus RN - 03/31/2024 3:19 PM EST Per EMS from home c/o SOB on exertion. Pt d/bong from [facility] couple weeks ago for same thing, but is now worsening. * SUZI Cronin - 03/31/2024 3:13 PM EST Emergency Medicine Note Patient Name: Alma Cassidy Initial Evaluation: 03/31/2024 : 1935 Patient's PCP: Msaon Hoffman MD Emergency Physician: SUZI Cronin History of Present Illness Chief Complaint: Chief Complaint Patient presents with Shortness of Breath SOB on exertion HPI: 89-year-old female here today short of breath recently admitted and discharged from the hospital. Patient here today past medical history O2 dependent COPD CVA heart block [place] pacer had aplaced February 06, 2024 history of a GI bleed. Peripheral artery disease hypertension aortic stenosis chronic kidney disease baseline is 1.8. And paroxysmal A-fib diagnosed in 2022 same time she wasdiagnosed with an ischemic stroke patient denies any chest pain fever chills or recent URI symptoms. States that she has O2 at home and she is more short of breath when she gets up walks around. Symptoms worsened over the past week ROS: I have performed a ROS with the pertinent positives and negatives documented in the history of present illness. Previous History Past Medical History: Diagnosis Date Anemia DX:Anemia CHF (congestive heart failure) ([facility]) 08/31/2021 DX:CHF (congestive heart failure) (HCC) Claudication ([facility]) 11/2016 DX:Claudication (HCC) COPD (chronic obstructive pulmonary disease) ([facility]) 2016 DX:COPD (chronic obstructive pulmonary disease) (HCC) COPD (chronic obstructive pulmonary disease) ([facility]/HCC) 08/31/2021 DX:COPD (chronic obstructive pulmonary disease) (HCC) HLD (hyperlipidemia) 08/31/2021 DX:HLD (hyperlipidemia) HTN (hypertension) 08/31/2021 DX:HTN (hypertension) Hyperlipidemia 2016 DX:Hyperlipidemia Hypertension DX:Hypertension Moderate aortic stenosis 08/31/2021 DX:Moderate aortic stenosis Moderate mitral stenosis 08/31/2021 DX:Moderate mitral stenosis On supplemental oxygen therapy 08/31/2021 DX:On supplemental oxygen therapy PAD (peripheral artery disease) ([facility]) 08/31/2021 DX:PAD (peripheral artery disease) ([facility]) Past Surgical History: Procedure Laterality Date AORTA - BILATERAL FEMORAL ARTERY BYPASS GRAFT Right PROCEDURE:FEMORAL ARTERY - POPLITEAL ARTERY BYPASS GRAFT AORTA - BILATERAL FEMORAL ARTERY BYPASS GRAFT Right 11/20/2017 PROCEDURE:FEMORAL ARTERY - POPLITEAL ARTERY BYPASS GRAFT;COMMENT:Procedure: REVISION OF RIGHT POPLITEAL BYPASS AND ENDARTERECTOMY OF RIGHT FEMORAL ARTERY; Surgeon: Can Tripathi MD; Location: [facility]; Service: Vascular; Laterality: Right; APPENDECTOMY PROCEDURE:APPENDECTOMY CATARACT EXTRACTION W/ INTRAOCULAR LENS IMPLANT Bilateral PROCEDURE:CATARACT EXTRACTION W/ INTRAOCULAR LENS IMPLANT COLONOSCOPY N/A 09/25/2017 PROCEDURE:COLONOSCOPY;COMMENT:Procedure: COLONOSCOPY-BSF/Biopsy and polypectomy; Surgeon: Rick Molina MD; Location: [facility]; Service: Gastroenterology; Laterality: N/A; OTHER SURGICAL HISTORY PROCEDURE: SD BYPASS W/VEIN FEMORAL-FEMORAL OVARIAN CYST SURGERY PROCEDURE:OVARIAN CYST SURGERY UPPER GASTROINTESTINAL ENDOSCOPY N/A 09/25/2017 PROCEDURE:UPPER GASTROINTESTINAL ENDOSCOPY;COMMENT:Procedure: UPPER ENDOSCOPY- EGD/Biopsy; Surgeon: Rick Molina MD; Location: [facility]; Service: Gastroenterology; Laterality: N/A; Social History Tobacco Use Smoking status: Former Current packs/day: 0.00 Types: Cigarettes Quit date: 12/01/2016 Years since quittin.3 Smokeless tobacco: Never Substance Use Topics Alcohol use: Not Currently Drug use: Never Family History Problem Relation Name Age of Onset Hypertension Mother Stroke Mother Heart attack Father Coronary artery disease Father No Known Problems Daughter Stroke Son Mental illness Son deficiences from car accident No Known Problems Son Coronary artery disease Brother No Known Problems Brother is allergic to gabapentin. No current facility-administered medications on file prior to encounter. Current Outpatient Medications on File Prior to Encounter Medication Sig Dispense Refill atorvastatin (LIPITOR) 40 mg tablet Take 1 tablet (40 mg total) by mouth 1 (one) time each day. budesonide (PULMICORT) 0.5 mg/2 mL nebulizer solution Take 2 mL (0.5 mg total) by nebulization 2 (two) times a day. clonazePAM (KlonoPIN) 0.25 mg disintegrating tablet Take 1 tablet (0.25 mg total) by mouth 2 (two) times a day if needed for anxiety for up to 7 days. Max Daily Amount: 0.5 mg furosemide (LASIX) 20 mg tablet Take 1 [...] TABLET BY MOUTH DAILY 90 tablet 0 Physical Exam ED Triage Vitals Temp Pulse Resp BP -- -- -- -- SpO2 Temp src Heart Rate Source Patient Position -- -- -- -- BP Location FiO2 (%) -- -- Physical Exam Vitals and nursing note reviewed. Constitutional: Appearance: She is well-developed. HENT: Head: Normocephalic. Eyes: Extraocular Movements: Extraocular movements intact. Pupils: Pupils are equal, round, and reactive to light. Cardiovascular: Comments: tachy pacer Pulmonary: Effort: Pulmonary effort is normal. Breath sounds: Normal breath sounds. Abdominal: General: Bowel sounds are normal. Palpations: Abdomen is soft. Musculoskeletal: General: Normal range of motion. Skin: General: Skin is warm. Capillary Refill: Capillary refill takes less than 2 seconds. Neurological: General: No focal deficit present. Mental Status: She is alert. Psychiatric: Mood and Affect: Mood normal. Behavior: Behavior normal. Results Labs Reviewed BASIC METABOLIC PANEL - Abnormal Result Value Sodium 139 Potassium 3.3 (*) Chloride 102 CO2 31 Anion Gap 6 Glucose 130 (*) BUN 17 Creatinine 1.24 (*) eGFR 42 (*) BUN/Creatinine Ratio 13.7 Calcium 10.1 CBC WITH AUTO DIFFERENTIAL - Abnormal WBC 7.4 RBC 3.40 (*) Hemoglobin 9.1 (*) Hematocrit 31.1 (*) MCV 91.7 MCH 26.8 (*) MCHC 29.3 (*) RDW 15.1 (*) Platelets 292 MPV 11.6 (*) NRBC 0.0 NRBC Absolute 0.00 Neutrophils Relative 73.8 Lymphocytes Relative 12.8 Monocytes Relative 10.1 Eosinophils Relative 2.4 Basophils Relative 0.4 Immature Granulocytes Relative 0.5 Neutrophils Absolute 5.43 Lymphocytes Absolute 0.94 (*) Monocytes Absolute 0.74 Eosinophils Absolute 0.18 Basophils Absolute 0.03 Immature Granulocytes Absolute 0.04 (*) B-TYPE NATRIURETIC PEPTIDE - Abnormal BNP 401 (*) RESPIRATORY VIRUS PANEL MOLECULAR STUDY - Normal Adenovirus Detection by PCR Not Detected Influenza A PCR Not Detected Influenza B PCR Not Detected Coronavirus 229E Not Detected Coronavirus HKU1 Not Detected Coronavirus OC43 Not Detected Coronavirus NL63 Not Detected Parainfluenza Virus 1 Not Detected Parainfluenza Virus 2 Not Detected Parainfluenza Virus 3 Not Detected Parainfluenza Virus 4 Not Detected RSV PCR Not Detected Human Metapneumovirus A and B Not Detected Rhinovirus/Enterovirus Not Detected Bordetella pertussis Not Detected Bordetella parapertussis Not Detected Mycoplasma pneumo by PCR Not Detected Chlamydia pneumoniae Not Detected SARS COV-2 Not Detected Narrative: Testing was performed using the [employer] Respiratory Pathogen PCR Assay. All results must [...] that are below the limit of detection. TROPONIN I HIGH SENSITIVITY - Normal High Sensitivity Troponin I 19 Narrative: High levels of biotin in samples may falsely decrease hsTroponin values. Use caution when interpreting hsTroponin results in patients taking biotin who exhibit renal impairment (eGFR <60) or in patients taking more than 20 mg/day of biotin. CBC AND DIFFERENTIAL Narrative: The following orders were created for panel order CBC and differential. Procedure Abnormality Status --------- ------ CBC auto differential[[id number]] Abnormal Final result Please view results for these tests on the individual orders. Abnormal Labs Reviewed BASIC METABOLIC PANEL - Abnormal; Notable for the following components: Result Value Potassium 3.3 (*) Glucose 130 (*) Creatinine 1.24 (*) eGFR 42 (*) All other components within normal limits CBC WITH AUTO DIFFERENTIAL - Abnormal; Notable for the following components: RBC 3.40 (*) Hemoglobin 9.1 (*) Hematocrit 31.1 (*) MCH 26.8 (*) MCHC 29.3 (*) RDW 15.1 (*) MPV 11.6 (*) Lymphocytes Absolute 0.94 (*) Immature Granulocytes Absolute 0.04 (*) All other components within normal limits B-TYPE NATRIURETIC PEPTIDE - Abnormal; Notable for the following components: BNP 401 (*) All other components within normal limits CT Angio Chest wo and/or w Contrast Final Result 1. No acute pulmonary embolus. 2. Mild residual consolidation at the left lung base relative to the prior exam. This document has been electronically signed by: Thad Huerta MD on 03/31/2024 22:35:11 XR Chest 2 Views Final Result FINDINGS/IMPRESSION: Hyperinflation with flattening of the diaphragms suggestive emphysematous changes with persistent interstitial opacities throughout suggestive of chronic interstitial changes . There is no new consolidation or effusion. No pneumothorax. Dual lead left pacer. -------- FINAL REPORT -------- Dictated By: Shikha Chaudhry Dictated Date: 03/31/2024 16:30 ET Assigned Physician: Shikha Chaudhry Reviewed and Electronically Signed By: Shikha Chaudhry Signed Date: 03/31/2024 16:32 ET Workstation ID: [id number] Transcribed By: Self Edit Transcribed Date: 03/31/2024 16:30 ET I have discussed the incidental/abnormal imaging and/or lab abnormalities with the patient and haveinstructed them the need for further evaluation and workup with their primary care doctor. I have provided the patient with a paper copy of the abnormality. The laboratory results, imaging results and other diagnostic exam results were reviewed in the EMR. EKG Interpretation Critical Care Time None ? Differential Diagnosis PE Pneumonia CHF Hypoxia Chronic COPD Medical Decision Making Patient is on oxygen More short of breath walking around her home. Here today denies any chest painor respiratory distress. Chest x-ray is unremarkable for acute process. BNP is 401. Patient has no lower extremity pitting and legs. Current is 1.24. Respiratory panel unremarkable. Patient is O2 dependent COPD CVA CHF hypertension aortic stenosis and PAD. Probable in need of O2 being creased CTA pending. PT eval ordered Medications acetaminophen (TYLENOL) tablet 650 mg (has no administration in time range) ipratropium-albuteroL (DUONEB) 0.5-2.5 mg/3 mL nebulizer solution 3 mL (3 mL nebulization Given 03/31/241744) sodium chloride 0.9 % flush 10 mL (10 mL intravenous Given 03/31/242052) iopamidoL (ISOVUE-370) 370 mg iodine /mL (76 %) injection 90 mL (52 mL intravenous Given 03/31/242052) albuterol 2.5 mg /3 mL (0.083 %) nebulizer solution 2.5 mg (2.5 mg nebulization Given 03/31/242219) ED Course as of 03/31/242256 Wed Mar 31, 2024 1645 Creatinine(!): 1.24 [RH] ED Course User Index [RH] SUZI Cronin Clinical Impressions as of 03/31/242256 Dyspnea, unspecified type COPD exacerbation (CMS/HCC) Shortness of breath Weakness Amount and/or Complexity of Data Reviewed External Data Reviewed: Encounters reviewed in Chart Review. Details: Labs: ordered. Decision-making details documented in ED Course. Radiology: ordered. Decision-making details documented in ED Course. ECG/medicine tests: ordered. Decision-making details documented in ED Course. Procedures Procedures Diagnosis 1. Dyspnea, unspecified type CT Angio Chest wo and/or w Contrast CT Angio Chest wo and/or w Contrast 2. COPD exacerbation (CMS/HCC) 3. Shortness of breath 4. Weakness Disposition Data Unavailable ED Prescriptions None Physician Attestation SUZI Cronin 03/31/24 1521 SUZI Crnoin 03/31/242225 SUZI Crnoin 03/31/242254 SUZI Cronin 03/31/242256 Cosigned by Jabari Robbins DO at 04/01/2024 12:16 AM EST documented in this encounter H&P Notes * Dasha Russell NP - 04/01/2024 10:59 AM EST Images from the original note were not included. History of present illness: This is an elderly female with the below mentioned medical problems including heart failure with preserved ejection fraction, COPD oxygen dependent at 2.5 L and the below mentioned medical problems. She comes in with complaints of shortness of breath. She tells me that she recently was discharged from rehab and was doing quite well in rehab and did well at home for the first several days but thenshe started getting weaker and finding it harder to do things and it has gotten to the point that she is struggling to breathe even with her baseline oxygen. She notes that she has had a cough which is chronic for her and not worse than normal. She has had no chest pain or pressure. She notes that t anita her lower extremities are not edematous as they had been. She has had no fevers or shaking chills. No abdominal pain nausea vomiting diarrhea she is moving her bowels normally and making urine normally. CTA was negative for pulmonary embolus did show mild consolidation in the left lung base relative to prior exam. EKG showed a ventricularly paced rhythm 101 bpm Respiratory viral panel is negative High sensitive troponin was negative. BNP was elevated from prior reading of 330 to 401 Review of Systems: As stated in HPI. Past medical history: COPD, oxygen dependent CHFpEF History of complete heart block status post pacemaker placement History of CVA PAD Hypertension Hyperlipidemia Moderate aortic stenosis Moderate mitral stenosis Atrial fibrilltion Past surgical history: Pacemaker placement Rec extraction with intraocular lens Ovarian cyst surgery Appendectomy Bilateral femoral artery bypass Allergies: Gabapentin Home medications: Amlodipine 5 mg daily-although this medication was just filled the patient states that it was a mistake and she no longer takes amlodipine. Atorvastatin 40 mg daily Besonide 0.5 mg vial twice daily Furosemide 20 mg daily Ipratropium/albuterol every 4 hours as needed shortness of breath Metoprolol succinate 50 mg daily Pantoprazole 40 mg daily Family history: Father had heart disease with a prior heart attack Her mother had hypertension and stroke She had a brother with CAD. Her son recently had a stroke and required a bypass for his heart. Social history: She comes in from home. She has a [employer] She is a former smoker but quit 7 years ago Denies alcohol and illicit drug use. Physical Exam: GENERAL: Early female seen in the emergency room she is lying comfortably on a stretcher not in acute distress. HEENT: Patient is normocephalic atraumatic pupils round and reactive no scleral icterus EOMI. Oral mucous membranes are pink and moist neck is supple without JVD. Trachea is midline CARDIAC: Mostly regular. She has a pacemaker in the left upper chest. RESPIRATORY: Lungs are clear to auscultation. No wheezing rales or rhonchi. No accessory muscle use. GI: Abdomen is soft no guarding no rebound tenderness bowel sounds are present. : Deferred EXTREMITIES: No lower extremity edema. She has some mild erythema and plaque type rash on her rightlower leg that does not look infected. No asymmetrical edema distal pulses are palpable. Feet are warm and well perfused with capillary refill less than 2 seconds. NEUROLOGICAL: Patient is alert and oriented. Cranial nerves II through XII are intact without focaldeficit. 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 There is no drainage. Assessment and plan: 1. Acute on chronic hypoxic respiratory failure. She is on oxygen at 2.5 L baseline. She continues on oxygen now presently at 3 L. She is somewhat dyspneic. Will treat her with scheduled DuoNebs budesonide and as needed albuterol. She is not wheezing presently so hold off on steroids for now. Wean o xygen as able. 2. Possible mild CHF exacerbation we are going to give her furosemide 20 mg IV twice daily. She will have strict I's and O's, daily weights and a cardiac diet 3. Hypertension. She is no longer on amlodipine but rather metoprolol succinate 50 mg daily which has been continued. DVT prophylaxis: Lovenox Care proxy: Her son Randy Hess [phone] CODE STATUS: This was discussed and she would want us to treat her aggressively medically but no heroics no intubation. Case and plan discussed with Dr Mcmahon. I spent greater than 40 min waiting the patient reviewing diagnostics labs and formulating a plan of care. Cosigned by Jose Mcmahon MD at 04/08/2024 1:05 AM EST Associated attestation - Jose Mcmahon MD - 04/08/2024 1:05 AM EST This is a split/shared visit with Dasha Russell NP. I personally performed the medical decision making (MDM) for the care of this patient on 04/01/24 as documented below Patient was discussed with Advanced Practice Provider. I personally saw and examined the patient atbedside. I independently obtained further history and reviewed significant updates, labs and imaging. I also contacted pertinent consultants in order to facilitate patient's medical care. Otherwise, I agree with the documentation and plan as outlined in the note below. Jose Mcmahon MD 04/08/24 1:03 AM EST documented in this encounter Plan of Treatment Upcoming Encounters Date Type Department Care Team (Late st Contact Info) Description 04/30/2024 3:00 PM EST Consult Pulmonolgy - [place] [address] [facility] [address] [place] [phone] Guille Gupta MD 175 [facility] [address] [place] [address] 09/27/2024 9:55 AM EDT Office Visit [facility] [address] [facility] [address] [place] [phone] Jimmy Noguera MD 300 [facility] [address] [place] [address] Scheduled Orders Name Type Priority Associated Diagnoses Orde r Schedule Basic metabolic panel Lab Routine KENDRA (acute kidney injury) (CMS/[facility]) Expected: 04/05/2024, Expires: 04/02/2025 documented as of this encounter Procedures Procedure [...] AUTO DIFFERENTIAL STAT 03/31/2024 3:37 PM EST CBC AND DIFFERENTIAL STAT 03/31/2024 3:37 PM EST BASIC METABOLIC PANEL STAT 03/31/2024 3:37 PM EST documented in this encounter Results * (ABNORMAL) CBC auto differential (04/02/2024 6:46 AM EST) [facility] WBC 8.7 4.8 - 10.8 K/mcL LAB HEMETOLOGY METHOD 04/02/2024 7:43 AM [facility] RBC 3.40(L) 3.80 - 4.80 M/mcL LAB HEMETOLOGY METHOD 04/02/2024 7:43 AM [facility] Hemoglobin 8.9(L) 11.5 - 16.0 g/dL LAB HEMETOLOGY METHOD 04/02/2024 7:43 AM [facility] Hematocrit 30.5(L) 35.0 - 47.0 % LAB HEMETOLOGY METHOD 04/02/2024 7:43 AM [facility] MCV 90.2 79.0 - 98.0 FL LAB HEMETOLOGY METHOD 04/02/2024 7:43 AM [facility] MCH 26.3(L) 27.0 - 32.0 pcg LAB HEMETOLOGY METHOD 04/02/2024 7:43 AM [facility] MCHC 29.2(L) 32.0 - 37.0 g/dL LAB HEMETOLOGY METHOD 04/02/2024 7:43 AM [facility] RDW 15.3(H) 11.0 - 15.0 % LAB HEMETOLOGY METHOD 04/02/2024 7:43 AM [facility] Platelets 280 130 - 400 K/mcL LAB HEMETOLOGY METHOD 04/02/2024 7:43 AM [facility] MPV 11.7(H) 7.0 - 11.0 FL LAB HEMETOLOGY METHOD 04/02/2024 7:43 AM [facility] NRBC 0.0 <1.0 % LAB HEMETOLOGY METHOD 04/02/2024 7:43 AM [facility] NRBC Absolute 0.00 <0.10 K/mcL LAB HEMETOLOGY METHOD 04/02/2024 7:43 AM [facility] Neutrophils Relative 75.1 % LAB HEMETOLOGY METHOD 04/02/2024 7:43 AM [facility] Lymphocytes Relative 6.8 % LAB HEMETOLOGY METHOD 04/02/2024 7:43 AM [facility] Monocytes Relative 8.5 % LAB HEMETOLOGY METHOD 04/02/2024 7:43 AM [facility] Eosinophils Relative 8.9 % LAB HEMETOLOGY METHOD 04/02/2024 7:43 AM [facility] Basophils Relative 0.0 % LAB HEMETOLOGY METHOD 04/02/2024 7:43 AM [facility] Immature Granulocytes Relative 0.7 % LAB HEMETOLOGY METHOD 04/02/2024 7:43 AM [facility] Neutrophils Absolute 6.52 1.50 - 7.00 K/mcL LAB HEMETOLOGY METHOD 04/02/2024 7:43 AM [facility] Lymphocytes Absolute 0.59(L) 1.00 - 5.00 K/mcL LAB HEMETOLOGY METHOD 04/02/2024 7:43 AM [facility] Monocytes Absolute 0.74 0.20 - 1.00 K/mcL LAB HEMETOLOGY METHOD 04/02/2024 7:43 AM [facility] Eosinophils Absolute 0.77(H) 0.00 - 0.50 K/mcL LAB HEMETOLOGY METHOD 04/02/2024 7:43 AM [facility] Basophils Absolute 0.00 0.00 - 0.20 K/mcL LAB HEMETOLOGY METHOD 04/02/2024 7:43 AM [facility] Immature Granulocytes Absolute 0.06(H) 0.00 - 0.03 K/mcL LAB HEMETOLOGY METHOD 04/02/2024 7:43 AM EST [facility] Blood Venous blood specimen / Unknown Venipuncture / Unknown 04/02/2024 6:46 AM EST 04/02/2024 7:30 AM EST us Jose Mcmahon MD LAB BLOOD ORDERABLES Final Re sult Performing Organization Address [facility]/ZIP Co de Phone Number [facility] [address] [place] [address], [place] [phone] * (ABNORMAL) Magnesium (04/02/2024 6:46 AM EST) Magnesium 1.8(L) 1.9 - 2.6 mg/dL LAB CHEMISTRY METHOD 04/02/2024 8:10 AM [facility] Blood Venous blood specimen / Unknown Venipuncture / Unknown 04/02/2024 6:46 AM EST 04/02/2024 7:31 AM EST us Jose Mcmahon MD LAB BLOOD ORDERABLES Final Re sult Performing Organization Address City/[facility]/ZIP Co de Phone Number [facility] [address] [place] [address], [place] [phone] * (ABNORMAL) Basic metabolic panel (04/02/2024 6:46 AM EST) Sodium 142 133 - 145 mmol/L LAB CHEMISTRY METHOD 04/02/2024 8:10 AM [facility] Potassium 3.2(L) 3.5 - 5.5 mmol/L LAB CHEMISTRY METHOD 04/02/2024 8:10 AM [facility] Chloride 105 96 - 110 mmol/L LAB CHEMISTRY METHOD 04/02/2024 8:10 AM [facility] CO2 32 21 - 32 mmol/L LAB CHEMISTRY METHOD 04/02/2024 8:10 AM [facility] Anion Gap 5 3 - 11 LAB CHEMISTRY METHOD 04/02/2024 8:10 AM [facility] Glucose 107(H) 70 - 100 mg/dL LAB CHEMISTRY METHOD 04/02/2024 8:10 AM [facility] BUN 19 5 - 25 mg/dL LAB CHEMISTRY METHOD 04/02/2024 8:10 AM [facility] Creatinine 2.02(H) 0.50 - 1.10 mg/dL LAB CHEMISTRY METHOD 04/02/2024 8:10 AM [facility] eGFR 24(L) >=60 mL/min/1. 73m2 LAB CHEMISTRY METHOD 04/02/2024 8:10 AM [facility] Comment:Calculation based on the??Chronic Kidney Disease Epidemiology Collaboration (CKD-EPI) equation refit??without adjustment for race. BUN/Creatinine Ratio 9.4 LAB CHEMISTRY METHOD 04/02/2024 8:10 AM [facility] Calcium 9.3 8.5 - 10.5 mg/dL LAB CHEMISTRY METHOD 04/02/2024 8:10 AM [facility] Blood Venous blood specimen / Unknown Venipuncture / Unknown 04/02/2024 6:46 AM EST 04/02/2024 7:31 AM EST Jose Mcmahon MD LAB BLOOD ORDERABLES Final Re sult [facility] [address] [place] [address], * ECG 12 lead (04/01/2024 9:42 AM EST) Ventricular Rate ECG 112 BPM GEMUSE Atrial Rate 115 BPM GEMUSE QRS Duration 114 ms GEMUSE Q-T Interval 382 ms GEMUSE QTc 521 ms GEMUSE T Lester 37 degrees GEMUSE ECG Interpretation probably ??Sinus tachycardia with occasional Premature ventricular complexes Low voltage QRS Right bundle branch block Abnormal ECG When compared with ECG of 31-MAR-2024 16:01, Sinus tachycardia has replaced Electronic ventricular pacemaker Confirmed by Gregorio SPENCE YUFENG ([id number]) on 04/01/2024 3:13:38 PM GEMUSE 04/01/2024 9:42 AM EST 04/01/2024 3:13 PM EST Asia ARCHER ECG ORDERABLES Final Result Performing Organization Address [facility] Co de Phone Number GEMUSE * Troponin I high sensitivity (04/01/2024 9:36 AM EST) Pathologist [facility] High Sensitivity Troponin I 26 <=54 ng/L LAB CHEMISTRY METHOD 04/01/2024 10:05 AM EST [facility] Blood Venous blood specimen / Unknown Venipuncture / Unknown 04/01/2024 9:36 AM EST 04/01/2024 9:41 AM EST Narrative [facility] - 04/01/2024 10:05 AM EST High levels of biotin in samples may falsely decrease hsTroponin values. ??Use caution when interpreting hsTroponin results in patients taking biotin who exhibit renal impairment (eGFR <60) or in patients taking more than 20 mg/day of biotin. Geraldo Edmonds MD LAB BLOOD ORDERABLES Final Resu lt Performing Organization Address [facility] Co de Phone Number [facility] [address] [place] [address], * (ABNORMAL) Venous blood gas (04/01/2024 9:36 AM EST) pH, Solitario 7.40 7.32 - 7.42 pH 04/01/2024 9:46 AM EST [facility] pCO2, Solitario 52(H) 41 - 51 mmHg 04/01/2024 9:46 AM EST [facility] pO2, Solitario 42(H) 25 - 40 mmHg 04/01/2024 9:46 AM EST [facility] HCO3, Venous 29.4(H) 22.0 - 26.0 mmol/L 04/01/2024 9:46 AM EST [facility] O2 Sat, Solitario 75.6 % 04/01/2024 9:46 AM EST [facility] Base Excess, Solitario 6.4(H) -2.0 - 2.0 mmol/L 04/01/2024 9:46 AM EST [facility] Blood Venous blood specimen / Unknown Venipuncture / Unknown 04/01/2024 9:36 AM EST 04/01/2024 9:41 AM EST Geraldo Edmonds MD LAB BLOOD ORDERABLES Final Resu lt [facility] [address] [place] [address], * ECG-Annotated (04/01/2024) Provider Onbase ECG ORDERABLES Final Result * CT Angio Chest wo and/or w Contrast (03/31/2024 8:57 PM EST) Anatomical Region Laterality Modality Body Computed [...] by: Thad Wesley MD on 03/31/2024 22:35:11 Asia Hycaitlins-Britney PA IMG CT PROCEDURES Dalila l Result * XR Chest 2 Views (03/31/2024 4:16 PM EST) Anatomical Region Laterality Modality Body Radiographic Claribel [...] Signed Date: 03/31/2024 16:32 ET Workstation ID: [id number] Transcribed By: Self Edit Transcribed Date: 03/31/2024 [...] Signed Date: 03/31/2024 16:32 ET Workstation ID: [id number] Transcribed By: Self Edit Transcribed Date: 03/31/2024 16:30 ET Lila Smith MD IMG XR PROCEDURES Final Result * Respiratory virus panel molecular study (03/31/2024 4:02 PM EST) Adenovirus Detection by PCR Not Detected Not Detected LAB MICROBIOLOGY METHOD 03/31/2024 5:53 PM [facility] Influenza A PCR Not Detected Not Detected LAB MICROBIOLOGY METHOD 03/31/2024 5:53 PM [facility] Influenza B PCR Not Detected Not Detected LAB MICROBIOLOGY METHOD 03/31/2024 5:53 PM [facility] Coronavirus 229E Not Detected Not Detected LAB MICROBIOLOGY METHOD 03/31/2024 5:53 PM [facility] Coronavirus HKU1 Not Detected Not Detected LAB MICROBIOLOGY METHOD 03/31/2024 5:53 PM EST [facility] Coronavirus OC43 Not Detected Not Detected LAB MICROBIOLOGY METHOD 03/31/2024 5:53 PM [facility] Coronavirus NL63 Not Detected Not Detected LAB MICROBIOLOGY METHOD 03/31/2024 5:53 PM [facility] Parainfluenza Virus 1 Not Detected Not Detected LAB MICROBIOLOGY METHOD 03/31/2024 5:53 PM EST [facility] Parainfluenza Virus 2 Not Detected Not Detected LAB MICROBIOLOGY METHOD 03/31/2024 5:53 PM [facility] Parainfluenza Virus 3 Not Detected Not Detected LAB MICROBIOLOGY METHOD 03/31/2024 5:53 PM [facility] Parainfluenza Virus 4 Not Detected Not Detected LAB MICROBIOLOGY METHOD 03/31/2024 5:53 PM [facility] RSV PCR Not Detected Not Detected LAB MICROBIOLOGY METHOD 03/31/2024 5:53 PM [facility] Human Metapneumovirus A and B Not Detected Not Detected LAB MICROBIOLOGY METHOD 03/31/2024 5:53 PM [facility] Rhinovirus/Entero virus Not Detected Not Detected LAB MICROBIOLOGY METHOD 03/31/2024 5:53 PM [facility] Bordetella pertussis Not Detected Not Detected LAB MICROBIOLOGY METHOD 03/31/2024 5:53 PM [facility] Bordetella parapertussis Not Detected Not Detected LAB MICROBIOLOGY METHOD 03/31/2024 5:53 PM [facility] Mycoplasma pneumo by PCR Not Detected Not Detected LAB MICROBIOLOGY METHOD 03/31/2024 5:53 PM [facility] Chlamydia pneumoniae Not Detected Not Detected LAB MICROBIOLOGY METHOD 03/31/2024 5:53 PM [facility] SARS COV-2 Not Detected Not Detected LAB MICROBIOLOGY METHOD 03/31/2024 5:53 PM [facility] Swab Both anterior nares / Unknown Non-blood Collection / Unknown 03/31/2024 4:02 PM EST 03/31/2024 4:25 PM EST [facility] - 03/31/2024 5:53 PM EST Testing was performed using the [employer] Respiratory Pathogen PCR Assay. All results must [...] are below the limit of detection. [place] LAB MICROBIOLOGY - GEN ERAL ORDERABLES Final Result Performing Organization Address [facility]/ZIP Co de Phone Number [facility] [address] [place] [address], [place] [phone] * ECG 12 lead (03/31/2024 4:01 PM EST) [facility] Ventricular Rate ECG 101 BPM GEMUSE Atrial Rate 101 BPM GEMUSE QRS Duration 118 ms GEMUSE Q-T Interval 384 ms GEMUSE QTc 497 ms GEMUSE P Wave Lester 115 degrees GEMUSE R Lester 143 degrees GEMUSE T Lester 52 degrees GEMUSE ECG Interpretation Ventricular- paced rhythm Abnormal ECG When compared with ECG of 20-FEB-2024 10:25, Vent. rate has increased BY ??24 BPM Confirmed by Gregorio SPENCE, YURI ([id number]) on 04/01/2024 12:26:21 PM GEMUSE 03/31/2024 4:01 PM EST 04/01/2024 12:26 PM EST Lila Smith MD ECG ORDERABLES Final Re sult Performing Organization Address [facility] Co de Phone Number GEMUSE * Troponin I high sensitivity (03/31/2024 4:00 PM EST) [facility] High Sensitivity Troponin I 19 <=54 ng/L LAB CHEMISTRY METHOD 03/31/2024 4:57 PM EST [facility] Blood Venous blood specimen / Unknown Venipuncture / Unknown 03/31/2024 4:00 PM EST 03/31/2024 4:25 PM EST Narrative [facility] - 03/31/2024 4:57 PM EST High levels of biotin in samples may falsely decrease hsTroponin values. ??Use caution when interpreting hsTroponin results in patients taking biotin who exhibit renal impairment (eGFR <60) or in patients taking more than 20 mg/day of biotin. Melon [email or web address] LAB BLOOD ORDERABLES F inal Result Performing Organization Address [facility]/ZIP Co de Phone Number [facility] [address] [place] [address], [place] [phone] * (ABNORMAL) BNP (03/31/2024 4:00 PM EST) [facility] BNP 401(H) <=100 pcg/mL LAB CHEMISTRY METHOD 03/31/2024 5:03 PM EST [facility] Blood Venous blood specimen / Unknown Venipuncture / Unknown 03/31/2024 4:00 PM EST 03/31/2024 4:25 PM EST [facility] LAB BLOOD ORDERABLES F inal Result Performing Organization Address [facility] Co de Phone Number [facility] [address] [place] [address], [place] [phone] * (ABNORMAL) CBC auto differential (03/31/2024 3:37 PM EST) [facility] WBC 7.4 4.8 - 10.8 K/mcL LAB HEMETOLOGY METHOD 03/31/2024 4:23 PM EST [facility] RBC 3.40(L) 3.80 - 4.80 M/mcL LAB HEMETOLOGY METHOD 03/31/2024 4:23 PM EST [facility] Hemoglobin 9.1(L) 11.5 - 16.0 g/dL LAB HEMETOLOGY METHOD 03/31/2024 4:23 PM EST [facility] Hematocrit 31.1(L) 35.0 - 47.0 % LAB HEMETOLOGY METHOD 03/31/2024 4:23 PM [facility] MCV 91.7 79.0 - 98.0 FL LAB HEMETOLOGY METHOD 03/31/2024 4:23 PM [facility] MCH 26.8(L) 27.0 - 32.0 pcg LAB HEMETOLOGY METHOD 03/31/2024 4:23 PM [facility] MCHC 29.3(L) 32.0 - 37.0 g/dL LAB HEMETOLOGY METHOD 03/31/2024 4:23 PM [facility] RDW 15.1(H) 11.0 - 15.0 % LAB HEMETOLOGY METHOD 03/31/2024 4:23 PM [facility] Platelets 292 130 - 400 K/mcL LAB HEMETOLOGY METHOD 03/31/2024 4:23 PM [facility] MPV 11.6(H) 7.0 - 11.0 FL LAB HEMETOLOGY METHOD 03/31/2024 4:23 PM [facility] NRBC 0.0 <1.0 % LAB HEMETOLOGY METHOD 03/31/2024 4:23 PM [facility] NRBC Absolute 0.00 <0.10 K/mcL LAB HEMETOLOGY METHOD 03/31/2024 4:23 PM [facility] Neutrophils Relative 73.8 % LAB HEMETOLOGY METHOD 03/31/2024 4:23 PM [facility] Lymphocytes Relative 12.8 % LAB HEMETOLOGY METHOD 03/31/2024 4:23 PM [facility] Monocytes Relative 10.1 % LAB HEMETOLOGY METHOD 03/31/2024 4:23 PM [facility] Eosinophils Relative 2.4 % LAB HEMETOLOGY METHOD 03/31/2024 4:23 PM [facility] Basophils Relative 0.4 % LAB HEMETOLOGY METHOD 03/31/2024 4:23 PM [facility] Immature Granulocytes Relative 0.5 % LAB HEMETOLOGY METHOD 03/31/2024 4:23 PM [facility] Neutrophils Absolute 5.43 1.50 - 7.00 K/mcL LAB HEMETOLOGY METHOD 03/31/2024 4:23 PM [facility] Lymphocytes Absolute 0.94(L) 1.00 - 5.00 K/mcL LAB HEMETOLOGY METHOD 03/31/2024 4:23 PM [facility] Monocytes Absolute 0.74 0.20 - 1.00 K/mcL LAB HEMETOLOGY METHOD 03/31/2024 4:23 PM [facility] Eosinophils Absolute 0.18 0.00 - 0.50 K/mcL LAB HEMETOLOGY METHOD 03/31/2024 4:23 PM [facility] Basophils Absolute 0.03 0.00 - 0.20 K/mcL LAB HEMETOLOGY METHOD 03/31/2024 4:23 PM [facility] Immature Granulocytes Absolute 0.04(H) 0.00 - 0.03 K/mcL LAB HEMETOLOGY METHOD 03/31/2024 4:23 PM [facility] Blood Venous blood specimen / Unknown Venipuncture / Unknown 03/31/2024 3:37 PM EST 03/31/2024 3:59 PM EST us Lila Smith MD LAB BLOOD ORDERABLES Fin al Result [facility] [address] [place] [address], * (ABNORMAL) Basic metabolic panel (03/31/2024 3:37 PM EST) Pathologist [facility] Sodium 139 133 - 145 mmol/L LAB CHEMISTRY METHOD 03/31/2024 4:31 PM [facility] Potassium 3.3(L) 3.5 - 5.5 mmol/L LAB CHEMISTRY METHOD 03/31/2024 4:31 PM [facility] Chloride 102 96 - 110 mmol/L LAB CHEMISTRY METHOD 03/31/2024 4:31 PM [facility] CO2 31 21 - 32 mmol/L LAB CHEMISTRY METHOD 03/31/2024 4:31 PM [facility] Anion Gap 6 3 - 11 LAB CHEMISTRY METHOD 03/31/2024 4:31 PM [facility] Glucose 130(H) 70 - 100 mg/dL LAB CHEMISTRY METHOD 03/31/2024 4:31 PM [facility] BUN 17 5 - 25 mg/dL LAB CHEMISTRY METHOD 03/31/2024 4:31 PM [facility] Creatinine 1.24(H) 0.50 - 1.10 mg/dL LAB CHEMISTRY METHOD 03/31/2024 4:31 PM [facility] eGFR 42(L) >=60 mL/min/1. 73m2 LAB CHEMISTRY METHOD 03/31/2024 4:31 PM [facility] Comment:Calculation based on the??Chronic Kidney Disease Epidemiology Collaboration (CKD-EPI) equation refit??without adjustment for race. BUN/Creatinine Ratio 13.7 LAB CHEMISTRY METHOD 03/31/2024 4:31 PM [facility] Calcium 10.1 8.5 - 10.5 mg/dL LAB CHEMISTRY METHOD 03/31/2024 4:31 PM [facility] Blood Venous blood specimen / Unknown Venipuncture / Unknown 03/31/2024 3:37 PM EST 03/31/2024 3:59 PM EST us Lila Smith MD LAB BLOOD ORDERABLES Fin al Result [facility] [address] [place] [address], documented in this encounter Visit Diagnoses Diagnosis Acute on chronic hypoxic respiratory failure (CMS/HCC)- Primary Dyspnea, unspecified type COPD exacerbation (CMS/HCC) Obstructive chronic bronchitis with exacerbation Weakness Other malaise and fatigue Acute on chronic hypoxic respiratory failure (CMS/HCC) KENDRA (acute kidney injury) (CMS/[facility]) documented in this encounter Admitting Diagnoses Diagnosis Acute on chronic hypoxic respiratory failure (CMS/HCC) documented in this encounter Administered Medications Inactive Administered Medications - up to 3 most recent administrations Medication Order MAR Action Action Date Dose Rate Site acetaminophen (TYLENOL) tablet 650 mg 650 mg, oral, Every 6 hours PRN, mild pain, fever - temperature GREATER than 38 C (100.4 F), Starting on Fri04/01/24 at 1106 albuterol 2.5 mg /3 mL (0.083 %) nebulizer solution 2.5 mg 2.5 mg, nebulization, Once, On Fri03/31/24 at 2214, For 1 dose Given 03/31/2024 10:20 PM EST 2.5 mg albuterol 2.5 mg /3 mL (0.083 %) nebulizer solution 2.5 mg 2.5 mg, nebulization, Once, On Fri04/01/24 at 0337, For 1 dose Given 04/01/2024 3:50 AM EST 2.5 mg albuterol 2.5 mg /3 mL (0.083 %) nebulizer solution 2.5 mg 2.5 mg, nebulization, Every 4 hours PRN, wheezing, Starting on Fri04/01/24 at 0708 Given 04/01/2024 4:31 PM EST 2.5 mg Given 04/01/2024 8:04 AM EST 2.5 mg atorvastatin (LIPITOR) tablet 40 mg 40 mg, oral, Daily, First dose on Fri04/01/24 at 1036 Given 04/02/2024 8:55 AM EST 40 mg Given 04/01/2024 11:03 AM EST 40 mg budesonide (PULMICORT) 0.5 mg/2 mL nebulizer solution 0.5 mg 0.5 mg, nebulization, 2 times daily, First dose on Fri04/01/24 at 1036, Rinse mouth with water after use to reduce aftertaste and incidence of candidiasis. Do not swallow. Given 04/02/2024 8:10 AM EST 0. 5 mg Given 04/01/2024 8:08 PM EST 0.5 mg Given 04/01/2024 11:03 AM EST 0.5 mg enoxaparin (LOVENOX) injection 40 mg 40 mg, subcutaneous, Every 24 hours scheduled, First dose on Jayne 04/01/24 at 1230, Indication: VTE/PE Prophylaxis Given 04/02/2024 8:55 AM EST 40 mg Left Upper Abdomen Given 04/01/2024 12:26 PM EST 40 mg R ight Lower Abdomen furosemide (LASIX) injection 20 mg 20 mg, intravenous, Once, On Jayne 04/01/24 at 1111, For 1 dose, Yes, on top of oral Lasix given this morning Given 04/01/2024 11:18 AM EST 20 mg furosemide (LASIX) injection 20 mg 20 mg, intravenous, Daily, First dose on Jayne 04/01/24 at 1500 Given 04/01/2024 4:00 PM EST 20 mg furosemide (LASIX) tablet 20 mg 20 mg, oral, Daily, First dose on Jayne 04/01/24 at 1036 Given 04/01/2024 11:04 AM EST 20 mg iopamidoL (ISOVUE-370) 370 mg iodine /mL (76 %) injection 90 mL 90 mL, intravenous, Once in imaging, Starting on Fri03/31/24 at 2051, For 1 dose Given 03/31/2024 8:53 PM EST 52 mL ipratropium-albuteroL (DUONEB) 0.5-2.5 mg/3 mL nebulizer solution 3 mL 3 mL, nebulization, Once, On Fri03/31/24 at 1738, For 1 dose Given 03/31/2024 5:45 PM EST 3 mL ipratropium-albuteroL (DUONEB) 0.5-2.5 mg/3 mL nebulizer solution 3 mL 3 mL, nebulization, Every 6 hours, First dose on Jayne 04/01/24 at 1200 Given 04/02/2024 1:04 PM EST 3 mL Given 04/02/2024 8:10 AM EST 3 mL Given 04/02/2024 3:29 AM EST 3 mL magnesium sulfate 2 gram/50 mL (4 %) IVPB 2 g 2 g, intravenous, at 25 mL/hr, Administer over 2 Hours, Once, On Fri04/02/24 at 0845, For 1 dose New Bag 04/02/2024 8:56 AM EST 2 g 25 mL/hr metoprolol succinate (TOPROL-XL) 24 Hour tablet 50 mg 50 mg, oral, Daily, First dose on Fri04/01/24 at 1036, Do not crush or chew. Given 04/01/2024 11:04 AM EST 50 mg ondansetron (PF) (ZOFRAN) injection 4 mg 4 mg, intravenous, Every 6 hours PRN, vomiting, nausea, Starting on Fri04/01/24 at 1106, -ONLY give IV if patient is unable to take orally. -If inadequate response within 30 minutes, proceed to next-line agent or contact provider if no further options ordered. pantoprazole (PROTONIX) EC tablet 40 mg 40 mg, oral, Daily, First dose on Fri04/01/24 at 1036, Do not crush, chew, or split. Given 04/02/2024 8:55 AM EST 40 mg Given 04/01/2024 11:04 AM EST 40 mg potassium chloride (KLOR-CON M20) CR tablet 40 mEq 40 mEq, oral, Once, On Fri04/02/24 at 0845, For 1 dose, Tablet may be swallowed whole (do not crush/chew/suck on) OR broken in half and each half swallowed separately OR dissolved (whole tablet) in ~4 ounces of water (allow ~2 minutes to dissolve, stir well and administer immediately). Given 04/02/2024 8:55 AM EST 40 mEq sodium chloride 0.9 % flush 10 mL 10 mL, intravenous, Once, On Fri03/31/24 at 2052, For 1 dose Given 03/31/2024 8:53 PM EST 10 mL sodium chloride 0.9 % flush 10 mL 10 mL, intravenous, 2 times daily, First dose on Fri04/01/24 at 1110 Given 04/02/2024 8:56 AM EST 10 mL Given 04/01/2024 8:20 PM EST 10 mL Given 04/01/2024 11:20 AM EST 10 mL sodium chloride 0.9 % flush 10 mL 10 mL, intravenous, As needed, line care, Starting on Jayne 04/01/24 at 1106 documented in this encounter Discontinued Medications Medication Sig Discontinue Reason Start Date End Da te furosemide (LASIX) 20 mg tablet Take 1 tablet (20 mg total) by mouth 1 (one) time each day. 06/28/2021 04/02/2024 metoprolol succinate (TOPROL-XL) 50 mg 24 hr tablet Take 1 tablet (50 mg total) by mouth 1 (one) time each day. 08/15/2021 04/02/2024 ipratropium-albuteroL (DUONEB) 0.5-2.5 mg/3 mL nebulizer solution Take 3 mL by nebulization every 4 (four) hours if needed for wheezing or shortness of breath. 04/02/2024 clonazePAM (KlonoPIN) 0.25 mg disintegrating tablet Take 1 tablet (0.25 mg total) by mouth 2 (two) times a day if needed for anxiety for up to 7 days. Max Daily Amount: 0.5 mg Stop Taking at Discharge 02/12/2024 04/02/2024 amLODIPine (NORVASC) 5 mg tablet Take 1 tablet (5 mg total) by mouth 1 (one) time each day. Stop Taking at Discharge 03/28/2024 04/02/2024 documented as of this encounter Historical Medications * This list may reflect changes made after this encounter. pantoprazole (PROTONIX) 40 mg EC tablet Take 1 tablet (40 mg total) by mouth 1 (one) time each day. 03/28/2024 ipratropium-albu teroL (DUONEB) 0.5-2.5 mg/3 mL nebulizer solution Take 3 mL by nebulization every 4 (four) hours if needed for wheezing or shortness of breath. amLODIPine (NORVASC) 5 mg tablet Take 1 tablet (5 mg total) by mouth 1 (one) time each day. 03/28/2024 added in this encounter Active and Recently Administered Medications Times are shown in EST. Scheduled Medication Order 03/31/2024 04/01/2024 04/02/2024 albuterol 2.5 mg /3 mL (0.083 %) nebulizer solution 2.5 mg (COMPLETED) 2.5 mg, nebulization, Once, On Fri03/31/24 at 2214, For 1 dose 2220 (Given - Provider: Karely De Jesus RN) albuterol 2.5 mg /3 mL (0.083 %) nebulizer solution 2.5 mg (COMPLETED) 2.5 mg, nebulization, Once, On Jayne 04/01/24 at 0337, For 1 dose 0350 (Given - Provider: Yareli Ordoñez RN) atorvastatin (LIPITOR) tablet 40 mg 40 mg, oral, Daily, First dose on Jayne 04/01/24 at 1036 1103 (Given - Provider: Neisha Peña RN) 0855 (Given - Provider: Edgardo Basilio RN) budesonide (PULMICORT) 0.5 mg/2 mL nebulizer solution 0.5 mg 0.5 mg, nebulization, 2 times daily, First dose on Jayne 04/01/24 at 1036, Rinse mouth with water after use to reduce aftertaste and incidence of candidiasis. Do not swallow. 1103 (Given - Provider: Neisha Peña RN)2007 (Given - Provider: Kathy Flores) 0810 (Given - Provider: Jessy Bedolla) enoxaparin (LOVENOX) injection 40 mg 40 mg, subcutaneous, Every 24 hours scheduled, First dose on Jayne 04/01/24 at 1230, Indication: VTE/PE Prophylaxis 1226 (Given - Provider: Neisha Peña RN) 0855 (Given - Provider: Edgardo Basilio RN) furosemide (LASIX) injection 20 mg (COMPLETED) 20 mg, intravenous, Once, On Jayne 04/01/24 at 1111, For 1 dose, Yes, on top of oral Lasix given this morning 1118 (Given - Provider: Neisha Peña RN) furosemide (LASIX) injection 20 mg (CANCELED) 20 mg, intravenous, Daily, First dose on Jayne 04/01/24 at 1500 1600 (Given - Provider: Lori Lal RN) furosemide (LASIX) tablet 20 mg (CANCELED) 20 mg, oral, Daily, First dose on Jayne 04/01/24 at 1036 1104 (Given - Provider: Neisha Peña RN) iopamidoL (ISOVUE-370) 370 mg iodine /mL (76 %) injection 90 mL (COMPLETED) 90 mL, intravenous, Once in imaging, Starting on Fri03/31/24 at 205, For 1 dose 2052 (Given - Provider: Deepa Ku) ipratropium-albuteroL (DUONEB) 0.5-2.5 mg/3 mL nebulizer solution 3 mL (COMPLETED) 3 mL, nebulization, Once, On Fri03/31/24 at 1738, For 1 dose 174 (Given - Provider: Karely De Jesus, CARMELITA) ipratropium-albuteroL (DUONEB) 0.5-2.5 mg/3 mL nebulizer solution 3 mL 3 mL, nebulization, Every 6 hours, First dose on Fri04/01/24 at 1200 1203 (Given - Provider: Neisha Peña RN)2007 (Given - Provider: Kathy Flores) 0329 (Given - Provider: Sheyla Rosario)0810 (Given - Provider: Jessy Bedolla)1304 (Given - Provider: Jessy Bedolla) magnesium sulfate 2 gram/50 mL (4 %) IVPB 2 g (COMPLETED) 2 g, intravenous, at 25 mL/hr, Administer over 2 Hours, Once, On Fri04/02/24 at 0845, For 1 dose 0856 (New Bag - Provider: Edgardo Basilio RN)1056 (Stopped - Provider: Edgardo Basilio, CARMELITA) metoprolol succinate (TOPROL-XL) 24 Hour tablet 50 mg 50 mg, oral, Daily, First dose on Fri04/01/24 at 1036, Do not crush or chew. 1104 (Given - Provider: Neisha Peña RN) 0857 (Not Given - Provider: Edgardo Basilio RN - Reason: Change in vital signs) pantoprazole (PROTONIX) EC tablet 40 mg 40 mg, oral, Daily, First dose on Fri04/01/24 at 1036, Do not crush, chew, or split. 1104 (Given - Provider: Neisha Peña RN) 0855 (Given - Provider: Edgardo Basilio RN) polyethylene glycol (MIRALAX) packet 17 g 17 g, oral, Daily, First dose on Fri04/01/24 at 1036, Dissolve in 240 mLs (8 ounces) of water or sports drink prior to giving. 1109 (Not Given - Provider: Neisha Peña RN - Reason: Patient/Resident/Agen t refused - education provided ) 0856 (Not Given - Provider: Edgardo Basilio RN - Reason: Patient/Resident/Agen t refused - education provided ) potassium chloride (KLOR-CON M20) CR tablet 40 mEq (COMPLETED) 40 mEq, oral, Once, On Fri04/02/24 at 0845, For 1 dose, Tablet may be swallowed whole (do not crush/chew/suck on) OR broken in half and each half swallowed separately OR dissolved (whole tablet) in ~4 ounces of water (allow ~2 minutes to dissolve, stir well and administer immediately). 0855 (Given - Provider: Edgardo Basilio, CARMELITA) senna-docusate (PERICOLACE) 8.6-50 mg per tablet 1 tablet 1 tablet, oral, Daily, First dose on Fri04/01/24 at 1036, For 350 days 1110 (Not Given - Provider: Neisha Peña RN - Reason: Patient/Resident/Agen t refused - education provided ) 0856 (Not Given - Provider: Edgardo Basilio RN - Reason: Patient/Resident/Agen t refused - education provided ) sodium chloride 0.9 % flush 10 mL (COMPLETED) 10 mL, intravenous, Once, On Fri03/31/24 at 2051, For 1 dose 2052 (Given - Provider: Deepa Ku) sodium chloride 0.9 % flush 10 mL(Linked Group 1) 10 mL, intravenous, 2 times daily, First dose on Fri04/01/24 at 1110 1120 (Given - Provider: Neisha Peña, CARMELITA)2019 (Given - Provider: Zo Munroe RN) 0856 (Given - Provider: Edgardo Basilio, CARMELITA) PRN Medication Order 03/31/2024 04/01/2024 04/02/2024 acetaminophen (TYLENOL) tablet 650 mg 650 mg, oral, Every 6 hours PRN, mild pain, fever - temperature GREATER than 38 C (100.4 F), Starting on Fri04/01/24 at 1106 albuterol 2.5 mg /3 mL (0.083 %) nebulizer solution 2.5 mg 2.5 mg, nebulization, Every 4 hours PRN, wheezing, Starting on Jayne 04/01/24 at 0708 0804 (Given - Provider: Margy Metz, CARMELITA)1206 (Not Given - Provider: Neisha ePña RN - Reason: Other - Comment: hold per dasha from [place] give duoneb instead)1631 (Given - Provider: Citlali Hurtado) 1150 (Canceled Entry - Provider: Automatic Discharge Provider - Comment: Automatically canceled at discontinue of medication order) clonazePAM (KlonoPIN) disintegrating tablet 0.25 mg 0.25 mg, oral, 2 times daily PRN, anxiety, Starting on Jayne 04/01/24 at 1034, HAZARDOUS Drug Precautions - Low Risk (Category A/NIOSH Group 3) Reproductive Risk Only: - Single pair of ASTM standard D6978 certified chemotherapy gloves - Eye protection (goggles or face shield) required only with a potential for facial contact (i.e. concern for spitting or vomiting of the dose during or after administration) - Staff at reproductive risk (actively trying to conceive, or may be become , and ): chemo certified gown and an N95 respirator required when crushing meds (crushing of tabs allowed only in closed pouches) or opening of capsules only for allowable dosage forms ondansetron (PF) (ZOFRAN) injection 4 mg 4 mg, intravenous, Every 6 hours PRN, vomiting, nausea, Starting on Jayne 04/01/24 at 1106, -ONLY give IV if patient is unable to take orally. -If inadequate response within 30 minutes, proceed to next-line agent or contact provider if no further options ordered. sodium chloride 0.9 % flush 10 mL(Linked Group 1) 10 mL, intravenous, As needed, line care, Starting on Jayne 04/01/24 at 1106 Linked Groups Order Group 1: Insert peripheral IV (CANCELED) STAT, Once, On Jayne 04/01/24 at 1107, For 1 occurrence And Maintain IV access (CANCELED) Until discontinued, Starting on Jayne 04/01/24 at 1107, Until Specified And Saline lock IV (CANCELED) Routine, Once, On Jayne 04/01/24 at 1107, For 1 occurrence And sodium chloride 0.9 % flush 10 mLJump to med 10 mL, intravenous, 2 times daily, First dose on Jayne 04/01/24 at 1110 And sodium chloride 0.9 % flush 10 mLJump to med 10 mL, intravenous, As needed, line care, Starting on Jayne 04/01/24 at 1106 documented in this encounter Orders Medications Ordered That Gerry ht Not Have Been Administered Count Last Ordered Date First Ordered Date acetaminophen (TYLENOL) tablet 650 mg 2 07/202403/31/2024 amLODIPine (NORVASC) tablet 5 mg 1 04/01/19 clonazePAM (KlonoPIN) disint egrating tablet 0.25 mg 1 04/01/2024 ipratropium-albuteroL (DUONE B) 0.5-2.5 mg/3 mL nebulizer solution 3 mL 1 04/01/2024 ondansetron (PF) (ZOFRAN) injection 4 mg 1 04/01/2024 polyethylene glycol (MIRALAX) packet 17 g 1 04/01/2024 senna-docusate (PERICOLACE) 8.6-50 mg per tablet 1 tablet 1 04/01/2024 sodium chloride 0.9 % flush 10 mL 1 025 Consult Count Last Ordered Date First Orde red Date WOUND OSTOMY EVAL AND TREAT 1 04/01/2024 Isolation Count Last Ordered Date First Orde red Date INITIATE DROPLET ISOLATION 1 03/31/2024 Admission Count Last Ordered Date First Orde red Date ADMIT TO INPATIENT 1 04/01/2024 Transfer Count Last Ordered Date First Orde red Date ED TO FLOOR BED REQUEST 1 04/01/2024 Discharge Count Last Ordered Date First Orde red Date DISCHARGE PATIENT 1 04/02/2024 documented in this encounter Additional Health Concerns Infection Onset Date Last Indicated Resolved Time Respiratory Rule-Out 03/31/2024 03/31/2024 025 5:53 PM EST COVID-19 Rule-Out 03/31/2024 03/31/2024 03/31/2024 5:53 PM EST Assessment Noted Time PHQ-9 Depression Total Score: 0 03/21/19 25 3:19 PM EST documented as of this encounter Care Teams Technical Professional Relationship Specialty Start Date End Date Mason Hoffman MD [address] [place] [address] [place] [address] PCP - General Internal Medicine 02/05/24 documented as of this encounter
--- OUTSIDE RECORDS SUMMARY | 2024-04-20 05:52 | XMS_ITS | Encounter Summary ---
Author Organization [facility] Address [address] [place] [address] Care Team Providers Care Publication Designer Name Role Phone Mason Hoffman MD Primary Care Provider [phone] Encounter Details Date Type Department Care Team (Late st Contact Info) Description 02/17/2024 Lab Requisition [facility] - Main Lab [address] [facility] [place] [address] Wally Flood MD [address] [place] [address] Chronic obstructive pulmonary disease with [...] 04/30/2024 3:00 PM EST Consult Pulmonolgy - [place] [address] [address] Guille Gupta MD 175 [facility] [address] [place] [address] 09/27/2024 9:55 AM EDT Office Visit [facility] [address] [facility] [address] [place] [address] Jimmy Noguera MD 300 [facility] [address] [place] [address] documented as of this encounter Procedures Procedure Name Priority Date/Time Associated Diagnosis Comments COMPLETE BLOOD COUNT Routine 02/19/2024 5:55 AM EST Chronic obstructive pulmonary disease with (acute) exacerbation (CMS/HCC) Essential (primary) hypertension BASIC METABOLIC PANEL Routine 02/19/2024 5:55 AM EST Chronic obstructive pulmonary disease with (acute) exacerbation (CMS/HCC) Essential (primary) hypertension documented in this encounter Results * (ABNORMAL) Basic metabolic panel (02/19/2024 5:55 AM EST) Sodium 142 133 - 145 mmol/L LAB CHEMISTRY METHOD 02/19/2024 11:55 AM [facility] Potassium 4.7 3.5 - 5.5 mmol/L LAB CHEMISTRY METHOD 02/19/2024 11:55 AM [facility] Chloride 108 96 - 110 mmol/L LAB CHEMISTRY METHOD 02/19/2024 11:55 AM [facility] CO2 29 21 - 32 mmol/L LAB CHEMISTRY METHOD 02/19/2024 11:55 AM [facility] Anion Gap 5 3 - 11 LAB CHEMISTRY METHOD 02/19/2024 11:55 AM [facility] Glucose 157(H) 70 - 100 mg/dL LAB CHEMISTRY METHOD 02/19/2024 11:55 AM [facility] BUN 45(H) 5 - 25 mg/dL LAB CHEMISTRY METHOD 02/19/2024 11:55 AM [facility] Creatinine 1.78(H) 0.50 - 1.10 mg/dL LAB CHEMISTRY METHOD 02/19/2024 11:55 AM [facility] eGFR 28(L) >=60 mL/min/1. 73m2 LAB CHEMISTRY METHOD 02/19/2024 11:55 AM [facility] Comment:Calculation based on the??Chronic Kidney Disease Epidemiology Collaboration (CKD-EPI) equation refit??without adjustment for race. BUN/Creatinine Ratio 25.3 LAB CHEMISTRY METHOD 02/19/2024 11:55 AM [facility] Calcium 9.4 8.5 - 10.5 mg/dL LAB CHEMISTRY METHOD 02/19/2024 11:55 AM [facility] Blood Venous blood specimen / Unknown Venipuncture / Unknown 02/19/2024 5:55 AM EST 02/19/2024 11:25 AM EST us Wally Flood MD LAB BLOOD ORDERABLES Final Resu lt [facility] [address] [place] [address], [place] [phone] * (ABNORMAL) Complete blood count (02/19/2024 5:55 AM EST) Pathologist [facility] WBC 12.6(H) 4.8 - 10.8 K/mcL LAB HEMETOLOGY METHOD 02/19/2024 11:49 AM EST [facility] RBC 2.60(L) 3.80 - 4.80 M/mcL LAB HEMETOLOGY METHOD 02/19/2024 11:49 AM [facility] Hemoglobin 7.1(L) 11.5 - 16.0 g/dL LAB HEMETOLOGY METHOD 02/19/2024 11:49 AM [facility] Hematocrit 24.2(L) 35.0 - 47.0 % LAB HEMETOLOGY METHOD 02/19/2024 11:49 AM [facility] MCV 92.4 79.0 - 98.0 FL LAB HEMETOLOGY METHOD 02/19/2024 11:49 AM [facility] MCH 27.1 27.0 - 32.0 pcg LAB HEMETOLOGY METHOD 02/19/2024 11:49 AM [facility] MCHC 29.3(L) 32.0 - 37.0 g/dL LAB HEMETOLOGY METHOD 02/19/2024 11:49 AM [facility] RDW 16.8(H) 11.0 - 15.0 % LAB HEMETOLOGY METHOD 02/19/2024 11:49 AM [facility] Platelets 290 130 - 400 K/mcL LAB HEMETOLOGY METHOD 02/19/2024 11:49 AM EST [facility] MPV 11.6(H) 7.0 - 11.0 FL LAB HEMETOLOGY METHOD 02/19/2024 11:49 AM EST [facility] NRBC 0.2 <1.0 % LAB HEMETOLOGY METHOD 02/19/2024 11:49 AM EST [facility] NRBC Absolute 0.02 <0.10 K/mcL LAB HEMETOLOGY METHOD 02/19/2024 11:49 AM EST [facility] Blood Venous blood specimen / Unknown Venipuncture / Unknown 02/19/2024 5:55 AM EST 02/19/2024 11:19 AM EST us Wally Flood MD LAB BLOOD ORDERABLES Final Resu lt [facility] [address] [place] [address], documented in this encounter Visit Diagnoses Diagnosis Chronic obstructive pulmonary disease with (acute) exacerbation (CMS/HCC) Essential (primary) hypertension Unspecified essential hypertension documented in this encounter Additional Health Concerns Infection Onset Date Last Indicated Resolved Time Respiratory Rule-Out 03/31/2024 03/31/2024 025 5:53 PM EST COVID-19 Rule-Out 03/31/2024 03/31/2024 03/31/2024 5:53 PM EST documented as of this encounter Care Teams Publication Designer Relationship Specialty Start Date End Date Mason Hoffman MD [address] [place] [address] PCP - General Internal Medicine 02/05/24 documented as of this encounter
--- OUTSIDE RECORDS SUMMARY | 2024-04-20 05:52 | XMS_ITS | Encounter Summary ---
Author Organization [facility] Address [address] [place] [address] Care Team Providers Care Sanitation Supervisor Name Role Phone Mason Hoffman MD Primary Care Provider [phone] Encounter Details Date Type Department Care Team (Late st Contact Info) Description 02/15/2024 Lab Requisition [facility] - Main Lab 299 [facility] [place] [address] Wally Flood MD 532 [place] [address] Unspecified bacterial pneumonia Social History Tobacco Use Types Packs/Day Years [...] 04/30/2024 3:00 PM EST Consult Pulmonolgy - [place] [address] [address] Guille Gupta MD 175 [facility] 200 [place] [address] 09/27/2024 9:55 AM EDT Office Visit [facility] - [facility] [address] [facility] 154 [place] [address] Jimmy Noguera MD 300 [facility] 154 [place] [address] documented as of this encounter Procedures Procedure Name Priority Date/Time Associated Diagnosis Comments COMPLETE BLOOD COUNT Routine 02/15/2024 6:26 AM EST Unspecified bacterial pneumonia documented in this encounter Results * (ABNORMAL) Complete blood count (02/15/2024 6:26 AM EST) [facility] WBC 12.4(H) 4.8 - 10.8 K/mcL LAB HEMETOLOGY METHOD 02/15/2024 10:47 AM [facility] LAB RBC 2.50(L) 3.80 - 4.80 M/mcL LAB HEMETOLOGY METHOD 02/15/2024 10:47 AM [facility] LAB Hemoglobin 6.9(L) 11.5 - 16.0 g/dL LAB HEMETOLOGY METHOD 02/15/2024 10:47 AM [facility] LAB Hematocrit 23.0(L) 35.0 - 47.0 % LAB HEMETOLOGY METHOD 02/15/2024 10:47 AM [facility] LAB MCV 91.6 79.0 - 98.0 FL LAB HEMETOLOGY METHOD 02/15/2024 10:47 AM [facility] LAB MCH 27.5 27.0 - 32.0 pcg LAB HEMETOLOGY METHOD 02/15/2024 10:47 AM [facility] LAB MCHC 30.0(L) 32.0 - 37.0 g/dL LAB HEMETOLOGY METHOD 02/15/2024 10:47 AM [facility] LAB RDW 15.8(H) 11.0 - 15.0 % LAB HEMETOLOGY METHOD 02/15/2024 10:47 AM [facility] LAB Platelets 218 130 - 400 K/mcL LAB HEMETOLOGY METHOD 02/15/2024 10:47 AM [facility] LAB MPV 12.1(H) 7.0 - 11.0 FL LAB HEMETOLOGY METHOD 02/15/2024 10:47 AM [facility] LAB NRBC 0.2 <1.0 % LAB HEMETOLOGY METHOD 02/15/2024 10:47 AM [facility] LAB NRBC Absolute 0.02 <0.10 K/mcL LAB HEMETOLOGY METHOD 02/15/2024 10:47 AM [facility] Blood Venous blood specimen / Unknown Venipuncture / Unknown 02/15/2024 6:26 AM EST 02/15/2024 10:20 AM EST us Wally Flood MD LAB BLOOD ORDERABLES Final Resu lt [facility] [address] [place] [address], documented in this encounter Visit Diagnoses Diagnosis Unspecified bacterial pneumonia documented in this encounter Additional Health Concerns Infection Onset Date Last Indicated Resolved Time Respiratory Rule-Out 03/31/2024 03/31/2024 025 5:53 PM EST COVID-19 Rule-Out 03/31/2024 03/31/2024 03/31/2024 5:53 PM EST documented as of this encounter Care Teams Sanitation Supervisor Relationship Specialty Start Date End Date Mason Hoffman MD [facility] [place] [address] PCP - General Internal Medicine 02/05/24 documented as of this encounter
--- OUTSIDE RECORDS SUMMARY | 2024-04-20 05:52 | XMS_ITS | Encounter Summary ---
Author Organization [facility] Address [address] [place] [address] Care Team Providers Care Medical Staff Services Manager Name Role Phone Mason Hoffman MD Primary Care Provider [phone] Encounter Details Date Type Department Care Team (Late st Contact Info) Description 03/10/2024 Lab Requisition [facility] - Main Lab 299 [facility] [place] [address] Wally Flood MD [address] [place] [address] Chronic obstructive pulmonary disease with [...] 04/30/2024 3:00 PM EST Consult Pulmonolgy - [place] [address] [address] Guille Gupta MD 175 [facility] 200 [place] [address] 09/27/2024 9:55 AM EDT Office Visit [facility] Cardiology Associates - [facility] [address] [facility] 154 [place] [address] Jimmy Noguera MD 300 [facility] 154 [place] [address] documented as of this encounter Procedures Procedure Name Priority Date/Time Associated Diagnosis Comments COMPLETE BLOOD COUNT Routine 03/11/2024 5:23 AM EST Chronic obstructive pulmonary disease with (acute) exacerbation (CMS/HCC) Essential (primary) hypertension BASIC METABOLIC PANEL Routine 03/11/2024 5:23 AM EST Chronic obstructive pulmonary disease with (acute) exacerbation (CMS/HCC) Essential (primary) hypertension documented in this encounter Results * (ABNORMAL) Basic metabolic panel (03/11/2024 5:23 AM EST) Sodium 141 133 - 145 mmol/L LAB CHEMISTRY METHOD 03/11/2024 11:39 AM [facility] Potassium 4.7 3.5 - 5.5 mmol/L LAB CHEMISTRY METHOD 03/11/2024 11:39 AM [facility] Chloride 107 96 - 110 mmol/L LAB CHEMISTRY METHOD 03/11/2024 11:39 AM [facility] CO2 28 21 - 32 mmol/L LAB CHEMISTRY METHOD 03/11/2024 11:39 AM [facility] Anion Gap 6 3 - 11 LAB CHEMISTRY METHOD 03/11/2024 11:39 AM [facility] Glucose 113(H) 70 - 100 mg/dL LAB CHEMISTRY METHOD 03/11/2024 11:39 AM [facility] BUN 20 5 - 25 mg/dL LAB CHEMISTRY METHOD 03/11/2024 11:39 AM [facility] Creatinine 1.71(H) 0.50 - 1.10 mg/dL LAB CHEMISTRY METHOD 03/11/2024 11:39 AM [facility] eGFR 29(L) >=60 mL/min/1. 73m2 LAB CHEMISTRY METHOD 03/11/2024 11:39 AM [facility] Comment:Calculation based on the??Chronic Kidney Disease Epidemiology Collaboration (CKD-EPI) equation refit??without adjustment for race. BUN/Creatinine Ratio 11.7 LAB CHEMISTRY METHOD 03/11/2024 11:39 AM [facility] Calcium 9.3 8.5 - 10.5 mg/dL LAB CHEMISTRY METHOD 03/11/2024 11:39 AM [facility] Blood Venous blood specimen / Unknown Venipuncture / Unknown 03/11/2024 5:23 AM EST 03/11/2024 9:53 AM EST us Wally Flood MD LAB BLOOD ORDERABLES Final Resu lt [facility] 299 [place] [address], [place] [phone] * (ABNORMAL) Complete blood count (03/11/2024 5:23 AM EST) WBC 6.9 4.8 - 10.8 K/mcL LAB HEMETOLOGY METHOD 03/11/2024 10:40 AM [facility] RBC 2.80(L) 3.80 - 4.80 M/mcL LAB HEMETOLOGY METHOD 03/11/2024 10:40 AM [facility] Hemoglobin 7.5(L) 11.5 - 16.0 g/dL LAB HEMETOLOGY METHOD 03/11/2024 10:40 AM [facility] Hematocrit 26.7(L) 35.0 - 47.0 % LAB HEMETOLOGY METHOD 03/11/2024 10:40 AM [facility] MCV 96.7 79.0 - 98.0 FL LAB HEMETOLOGY METHOD 03/11/2024 10:40 AM [facility] MCH 27.2 27.0 - 32.0 pcg LAB HEMETOLOGY METHOD 03/11/2024 10:40 AM [facility] MCHC 28.1(L) 32.0 - 37.0 g/dL LAB HEMETOLOGY METHOD 03/11/2024 10:40 AM [facility] RDW 17.1(H) 11.0 - 15.0 % LAB HEMETOLOGY METHOD 03/11/2024 10:40 AM [facility] Platelets 272 130 - 400 K/mcL LAB HEMETOLOGY METHOD 03/11/2024 10:40 AM EST [facility] MPV 11.3(H) 7.0 - 11.0 FL LAB HEMETOLOGY METHOD 03/11/2024 10:40 AM EST [facility] NRBC 0.0 <1.0 % LAB HEMETOLOGY METHOD 03/11/2024 10:40 AM EST [facility] NRBC Absolute 0.00 <0.10 K/mcL LAB HEMETOLOGY METHOD 03/11/2024 10:40 AM EST [facility] Blood Venous blood specimen / Unknown Venipuncture / Unknown 03/11/2024 5:23 AM EST 03/11/2024 9:57 AM EST us Wally Flood MD LAB BLOOD ORDERABLES Final Resu lt [facility] 299 [place] [address], documented in this encounter Visit Diagnoses Diagnosis Chronic obstructive pulmonary disease with (acute) exacerbation (CMS/HCC) Essential (primary) hypertension Unspecified essential hypertension documented in this encounter Additional Health Concerns Infection Onset Date Last Indicated Resolved Time Respiratory Rule-Out 03/31/2024 03/31/2024 025 5:53 PM EST COVID-19 Rule-Out 03/31/2024 03/31/2024 03/31/2024 5:53 PM EST documented as of this encounter Care Teams Medical Staff Services Manager Relationship Specialty Start Date End Date Mason Hoffman MD 305 [facility] [place] [address] PCP - General Internal Medicine 02/05/24 documented as of this encounter
--- OUTSIDE RECORDS SUMMARY | 2024-04-20 05:52 | XMS_ITS | Encounter Summary ---
Author Organization [facility] Address [address] [place] [address] Care Team Providers Care Nurse Transitional Name Role Phone Mason Hoffman MD Primary Care Provider [phone] Reason for Visit * Reason Onset Date Comments Request For Order(s) 02/24/2024 Encounter Details Date Type Department Care Team (Late st Contact Info) Description 02/24/2024 Telephone [facility] [place] [address] [place] [address] Mason Hoffman MD 305 [place] [address] Request For Order(s) Social History Tobacco Use Types Packs/Day Years [...] your loved ones. For example, child care centre manager or elderly care for an older adult? [...] documented in this encounter Progress Notes * Frank Pyle - 02/24/2024 8:42 AM EST Faxed order received from [facility]. Orders placed in Mason Hoffman MD bin for signing, please faxto [phone]. documented in this encounter Plan of Treatment Upcoming Encounters Date Type Department Care Team (Late st Contact Info) Description 04/30/2024 3:00 PM EST Consult Pulmonolgy - [place] [address] [address] Guille Gupta MD 175 [facility] 200 [place] [address] 09/27/2024 9:55 AM EDT Office Visit [facility] Cardiology Associates - [facility] 154 300 [facility] 154 [place] [address] Jimmy Noguera MD 300 [facility] 154 [place] [address] documented as of this encounter Visit Diagnoses Not on filedocumented in this encounter Care Teams Nurse Transitional Relationship Specialty Start Date End Date Mason Hoffman MD 305 [place] [address] PCP - General Internal Medicine 02/05/24 documented as of this encounter
--- OUTSIDE RECORDS SUMMARY | 2024-04-20 05:52 | XMS_ITS | Encounter Summary ---
Author Organization [facility] Address [address] [place] [address] Care Team Providers Care Environmental Services Floor Tech Name Role Phone Mason Hoffman MD Primary Care Provider [phone] Encounter Details Date Type Department Care Team (Late st Contact Info) Description 02/24/2024 Lab Requisition [facility] - Main Lab 299 [facility] [place] [address] Wally Flood MD 532 [place] [address] Chronic obstructive pulmonary disease with [...] 04/30/2024 3:00 PM EST Consult Pulmonolgy - [place] [address] [address] Giulle Gupta MD 175 [facility] 200 [place] [address] 09/27/2024 9:55 AM EDT Office Visit [facility] - [facility] 154 300 [facility] 154 [place] [address] Jimmy Noguera MD 300 [facility] 154 [place] [address] documented as of this encounter Procedures Procedure Name Priority Date/Time Associated Diagnosis Comments COMPLETE BLOOD COUNT Routine 2024 5:20 AM EST Chronic obstructive pulmonary disease with (acute) exacerbation (CMS/HCC) Essential (primary) hypertension BASIC METABOLIC PANEL Routine 2024 5:20 AM EST Chronic obstructive pulmonary disease with (acute) exacerbation (CMS/HCC) Essential (primary) hypertension documented in this encounter Results * (ABNORMAL) Basic metabolic panel (2024 5:20 AM EST) Sodium 139 133 - 145 mmol/L LAB CHEMISTRY METHOD 2024 9:34 AM [facility] Potassium 3.6 3.5 - 5.5 mmol/L LAB CHEMISTRY METHOD 2024 9:34 AM [facility] Chloride 105 96 - 110 mmol/L LAB CHEMISTRY METHOD 2024 9:34 AM [facility] CO2 29 21 - 32 mmol/L LAB CHEMISTRY METHOD 2024 9:34 AM [facility] Anion Gap 5 3 - 11 LAB CHEMISTRY METHOD 2024 9:34 AM [facility] Glucose 115(H) 70 - 100 mg/dL LAB CHEMISTRY METHOD 2024 9:34 AM [facility] BUN 36(H) 5 - 25 mg/dL LAB CHEMISTRY METHOD 2024 9:34 AM [facility] Creatinine 2.03(H) 0.50 - 1.10 mg/dL LAB CHEMISTRY METHOD 2024 9:34 AM [facility] eGFR 24(L) >=60 mL/min/1. 73m2 LAB CHEMISTRY METHOD 2024 9:34 AM [facility] Comment:Calculation based on the??Chronic Kidney Disease Epidemiology Collaboration (CKD-EPI) equation refit??without adjustment for race. BUN/Creatinine Ratio 17.7 LAB CHEMISTRY METHOD 2024 9:34 AM [facility] Calcium 8.9 8.5 - 10.5 mg/dL LAB CHEMISTRY METHOD 2024 9:34 AM [facility] Blood Venous blood specimen / Unknown Venipuncture / Unknown 2024 5:20 AM EST 2024 9:00 AM EST us Wally Flood MD LAB BLOOD ORDERABLES Final Resu lt [facility] [address] [place] [address], [place] [phone] * (ABNORMAL) Complete blood count (2024 5:20 AM EST) [facility] WBC 6.1 4.8 - 10.8 K/mcL LAB HEMETOLOGY METHOD 2024 9:14 AM [facility] RBC 2.60(L) 3.80 - 4.80 M/mcL LAB HEMETOLOGY METHOD 2024 9:14 AM [facility] Hemoglobin 6.9(L) 11.5 - 16.0 g/dL LAB HEMETOLOGY METHOD 2024 9:14 AM [facility] Hematocrit 23.6(L) 35.0 - 47.0 % LAB HEMETOLOGY METHOD 2024 9:14 AM [facility] MCV 92.5 79.0 - 98.0 FL LAB HEMETOLOGY METHOD 2024 9:14 AM [facility] MCH 27.1 27.0 - 32.0 pcg LAB HEMETOLOGY METHOD 2024 9:14 AM [facility] MCHC 29.2(L) 32.0 - 37.0 g/dL LAB HEMETOLOGY METHOD 2024 9:14 AM [facility] RDW 16.8(H) 11.0 - 15.0 % LAB HEMETOLOGY METHOD 2024 9:14 AM [facility] Platelets 190 130 - 400 K/mcL LAB HEMETOLOGY METHOD 2024 9:14 AM EST [facility] MPV 12.0(H) 7.0 - 11.0 FL LAB HEMETOLOGY METHOD 2024 9:14 AM EST [facility] NRBC 0.0 <1.0 % LAB HEMETOLOGY METHOD 2024 9:14 AM EST [facility] NRBC Absolute 0.00 <0.10 K/mcL LAB HEMETOLOGY METHOD 2024 9:14 AM EST [facility] Blood Venous blood specimen / Unknown Venipuncture / Unknown 2024 5:20 AM EST 2024 9:05 AM EST us Wally Flood MD LAB BLOOD ORDERABLES Final Resu lt [facility] [address] [place] [address], documented in this encounter Visit Diagnoses Diagnosis Chronic obstructive pulmonary disease with (acute) exacerbation (CMS/HCC) Essential (primary) hypertension Unspecified essential hypertension documented in this encounter Additional Health Concerns Infection Onset Date Last Indicated Resolved Time Respiratory Rule-Out 03/31/2024 03/31/2024 025 5:53 PM EST COVID-19 Rule-Out 03/31/2024 03/31/2024 03/31/2024 5:53 PM EST documented as of this encounter Care Teams Environmental Services Floor Tech Relationship Specialty Start Date End Date Mason Hoffman MD [address] [place] [address] PCP - General Internal Medicine 02/05/24 documented as of this encounter
--- OUTSIDE RECORDS SUMMARY | 2024-04-20 05:52 | XMS_ITS | Encounter Summary ---
Author Organization [facility] Address [address] [place] [address] Care Team Providers Care Slubber Tender Name Role Phone Mason Hoffman MD Primary Care Provider [phone] Encounter Details Date Type Department Care Team (Late st Contact Info) Description 03/12/2024 Lab Requisition [facility] - Main Lab 299 [facility] [place] [address] Wally Flood MD 532 [place] [address] Chronic obstructive pulmonary disease with [...] 04/30/2024 3:00 PM EST Consult Pulmonolgy - [place] [address] [address] Guille Gupta MD 175 [facility] 200 [place] [address] 09/27/2024 9:55 AM EDT Office Visit [facility] Cardiology Associates - [facility] 154 300 [facility] 154 [place] [address] Jimmy Noguera MD 300 [facility] 154 [place] [address] documented as of this encounter Visit Diagnoses Diagnosis Chronic obstructive pulmonary disease with (acute) exacerbation (CMS/HCC) Essential (primary) hypertension Unspecified essential hypertension documented in this encounter Additional Health Concerns Infection Onset Date Last Indicated Resolved Time Respiratory Rule-Out 03/31/2024 03/31/2024 025 5:53 PM EST COVID-19 Rule-Out 03/31/2024 03/31/2024 03/31/2024 5:53 PM EST documented as of this encounter Care Teams Slubber Tender Relationship Specialty Start Date End Date Mason Hoffman MD 305 [facility] [place] [address] PCP - General Internal Medicine 02/05/24 documented as of this encounter
--- OUTSIDE RECORDS SUMMARY | 2024-04-20 05:52 | XMS_ITS | Clinical Summary ---
Author Organization [facility] Address [address] [address] Phone Care Team Providers Care Fight Manager Name Role Phone Abraham Valle MD Primary Care Provider [phone] Social History Tobacco Use Types Packs/Day Years Used Date Smoking Tobacco: Never Assessed Comments Unknown Sex and Gender Information Value Date Recorded Sex Assigned at Not on file Legal Sex Female 8:11 AM EDT Gender Identity Not on file Sexual Orientation Not on file Plan of Treatment Health Maintenance Due Date Last Done Comments Pneumococcal Vaccine: 65+ Ye ars (1 of 2 - PCV) 1941 Influenza Vaccine (#1) 2023 Hepatitis B Vaccine Aged Out No longe r eligible based on patient's age to complete this topic Insurance [facility] MEDICARE [facility] MEDICARE Care Teams Fight Manager Relationship Specialty Start Date End Date Abraham Valle MD [address] [place] [address] PCP - General Internal Medicine 08/05/22
--- OUTSIDE RECORDS SUMMARY | 2024-04-20 05:52 | XMS_ITS | Encounter Summary ---
Author Organization [facility] Address [address] [place] [address] Care Team Providers Care Resist Coater Developer Name Role Phone Mason Hoffman MD Primary Care Provider [phone] Encounter Details Date Type Department Care Team (Late st Contact Info) Description 03/06/2024 Lab Requisition [facility] - Main Lab 299 [facility] [place] [address] Wally Flood MD 532 [place] [address] Chronic obstructive pulmonary disease with [...] 04/30/2024 3:00 PM EST Consult Pulmonolgy - [place] [address] [address] Guille Gupta MD 175 [facility] 200 [place] [address] 09/27/2024 9:55 AM EDT Office Visit [facility] - [facility] 154 300 [facility] 154 [place] [address] Jimmy Noguera MD 300 [facility] 154 [place] [address] documented as of this encounter Procedures Procedure Name Priority Date/Time Associated Diagnosis Comments COMPLETE BLOOD COUNT Routine 03/08/2024 5:46 AM EST Chronic obstructive pulmonary disease with (acute) exacerbation (CMS/HCC) Essential (primary) hypertension COMPREHENSIVE METABOLIC PANEL Routine 03/08/2024 5:44 AM EST Chronic obstructive pulmonary disease with (acute) exacerbation (CMS/HCC) Essential (primary) hypertension documented in this encounter Results * (ABNORMAL) Complete blood count (03/08/2024 5:46 AM EST) WBC 6.3 4.8 - 10.8 K/mcL LAB HEMETOLOGY METHOD 03/08/2024 9:38 AM [facility] RBC 2.70(L) 3.80 - 4.80 M/mcL LAB HEMETOLOGY METHOD 03/08/2024 9:38 AM [facility] Hemoglobin 7.1(L) 11.5 - 16.0 g/dL LAB HEMETOLOGY METHOD 03/08/2024 9:38 AM [facility] Hematocrit 25.3(L) 35.0 - 47.0 % LAB HEMETOLOGY METHOD 03/08/2024 9:38 AM [facility] MCV 95.5 79.0 - 98.0 FL LAB HEMETOLOGY METHOD 03/08/2024 9:38 AM [facility] MCH 26.8(L) 27.0 - 32.0 pcg LAB HEMETOLOGY METHOD 03/08/2024 9:38 AM [facility] MCHC 28.1(L) 32.0 - 37.0 g/dL LAB HEMETOLOGY METHOD 03/08/2024 9:38 AM [facility] RDW 17.3(H) 11.0 - 15.0 % LAB HEMETOLOGY METHOD 03/08/2024 9:38 AM [facility] Platelets 277 130 - 400 K/mcL LAB HEMETOLOGY METHOD 03/08/2024 9:38 AM [facility] MPV 11.0 7.0 - 11.0 FL LAB HEMETOLOGY METHOD 03/08/2024 9:38 AM [facility] NRBC 0.0 <1.0 % LAB HEMETOLOGY METHOD 03/08/2024 9:38 AM EST [facility] NRBC Absolute 0.00 <0.10 K/mcL LAB HEMETOLOGY METHOD 03/08/2024 9:38 AM [facility] Blood Venous blood specimen / Unknown Venipuncture / Unknown 03/08/2024 5:46 AM EST 03/08/2024 9:35 AM EST us Wally Flood MD LAB BLOOD ORDERABLES Final Resu lt [facility] 299 [place] [address], [place] [phone] * (ABNORMAL) Comprehensive metabolic panel (03/08/2024 5:44 AM EST) Sodium 140 133 - 145 mmol/L LAB CHEMISTRY METHOD 03/08/2024 10:19 AM [facility] Potassium 4.4 3.5 - 5.5 mmol/L LAB CHEMISTRY METHOD 03/08/2024 10:19 AM [facility] Chloride 106 96 - 110 mmol/L LAB CHEMISTRY METHOD 03/08/2024 10:19 AM [facility] CO2 30 21 - 32 mmol/L LAB CHEMISTRY METHOD 03/08/2024 10:19 AM [facility] Anion Gap 4 3 - 11 LAB CHEMISTRY METHOD 03/08/2024 10:19 AM [facility] Glucose 94 70 - 100 mg/dL LAB CHEMISTRY METHOD 03/08/2024 10:19 AM [facility] BUN 23 5 - 25 mg/dL LAB CHEMISTRY METHOD 03/08/2024 10:19 AM [facility] Creatinine 1.87(H) 0.50 - 1.10 mg/dL LAB CHEMISTRY METHOD 03/08/2024 10:19 AM [facility] eGFR 26(L) >=60 mL/min/1. 73m2 LAB CHEMISTRY METHOD 03/08/2024 10:19 AM [facility] Comment:Calculation based on the??Chronic Kidney Disease Epidemiology Collaboration (CKD-EPI) equation refit??without adjustment for race. BUN/Creatinine Ratio 12.3 LAB CHEMISTRY METHOD 03/08/2024 10:19 AM [facility] Calcium 8.9 8.5 - 10.5 mg/dL LAB CHEMISTRY METHOD 03/08/2024 10:19 AM [facility] AST (SGOT) 13 10 - 42 unit/L LAB CHEMISTRY METHOD 03/08/2024 10:19 AM [facility] ALT (SGPT) 16 10 - 60 unit/L LAB CHEMISTRY METHOD 03/08/2024 10:19 AM [facility] Alkaline Phosphatase 89 42 - 121 unit/L LAB CHEMISTRY METHOD 03/08/2024 10:19 AM [facility] Total Protein 5.3(L) 6.0 - 8.0 g/dL LAB CHEMISTRY METHOD 03/08/2024 10:19 AM [facility] Albumin 2.6(L) 3.2 - 5.0 g/dL LAB CHEMISTRY METHOD 03/08/2024 10:19 AM [facility] Total Bilirubin 0.5 0.0 - 1.4 mg/dL LAB CHEMISTRY METHOD 03/08/2024 10:19 AM [facility] Blood Venous blood specimen / Unknown Venipuncture / Unknown 03/08/2024 5:44 AM EST 03/08/2024 9:14 AM EST us Wally Flood MD LAB BLOOD ORDERABLES Final Resu lt [facility] 299 [place] [address], documented in this encounter Visit Diagnoses Diagnosis Chronic obstructive pulmonary disease with (acute) exacerbation (CMS/HCC) Essential (primary) hypertension Unspecified essential hypertension documented in this encounter Additional Health Concerns Infection Onset Date Last Indicated Resolved Time Respiratory Rule-Out 03/31/2024 03/31/2024 025 5:53 PM EST COVID-19 Rule-Out 03/31/2024 03/31/2024 03/31/2024 5:53 PM EST documented as of this encounter Care Teams Resist Coater Developer Relationship Specialty Start Date End Date Mason Hoffman MD 305 [facility] [place] [address] PCP - General Internal Medicine 02/05/24 documented as of this encounter
--- OUTSIDE RECORDS SUMMARY | 2024-04-20 05:52 | XMS_ITS | Encounter Summary ---
Author Organization [facility] Address [address] [place] [address] Care Team Providers Care Head Operator Name Role Phone Mason Hoffman MD Primary Care Provider [phone] Encounter Details Date Type Department Care Team (Late st Contact Info) Description 02/21/2024 Lab Requisition [facility] - Main Lab [address] [facility] [place] [address] Wally Flood MD 532 [place] [address] Chronic obstructive pulmonary disease with [...] 04/30/2024 3:00 PM EST Consult Pulmonolgy - [place] [address] [address] Guille Gupta MD 175 [facility] 200 [place] [address] 09/27/2024 9:55 AM EDT Office Visit [facility] - [facility] 154 300 [facility] 154 [place] [address] Jimmy Noguera MD [address] [facility] 154 [place] [address] documented as of this encounter Procedures Procedure Name Priority Date/Time Associated Diagnosis Comments COMPLETE BLOOD COUNT Routine 02/23/2024 6:27 AM EST Chronic obstructive pulmonary disease with (acute) exacerbation (CMS/HCC) Essential (primary) hypertension COMPREHENSIVE METABOLIC PANEL Routine 02/23/2024 6:27 AM EST Chronic obstructive pulmonary disease with (acute) exacerbation (CMS/HCC) Essential (primary) hypertension documented in this encounter Results * (ABNORMAL) Comprehensive metabolic panel (02/23/2024 6:27 AM EST) Sodium 139 133 - 145 mmol/L LAB CHEMISTRY METHOD 02/23/2024 10:20 AM [facility] Potassium 3.5 3.5 - 5.5 mmol/L LAB CHEMISTRY METHOD 02/23/2024 10:20 AM [facility] Chloride 103 96 - 110 mmol/L LAB CHEMISTRY METHOD 02/23/2024 10:20 AM [facility] CO2 29 21 - 32 mmol/L LAB CHEMISTRY METHOD 02/23/2024 10:20 AM [facility] Anion Gap 7 3 - 11 LAB CHEMISTRY METHOD 02/23/2024 10:20 AM [facility] Glucose 131(H) 70 - 100 mg/dL LAB CHEMISTRY METHOD 02/23/2024 10:20 AM [facility] BUN 38(H) 5 - 25 mg/dL LAB CHEMISTRY METHOD 02/23/2024 10:20 AM [facility] Creatinine 2.48(H) 0.50 - 1.10 mg/dL LAB CHEMISTRY METHOD 02/23/2024 10:20 AM [facility] eGFR 18(L) >=60 mL/min/1. 73m2 LAB CHEMISTRY METHOD 02/23/2024 10:20 AM [facility] Comment:Calculation based on the??Chronic Kidney Disease Epidemiology Collaboration (CKD-EPI) equation refit??without adjustment for race. BUN/Creatinine Ratio 15.3 LAB CHEMISTRY METHOD 02/23/2024 10:20 AM [facility] Calcium 9.0 8.5 - 10.5 mg/dL LAB CHEMISTRY METHOD 02/23/2024 10:20 AM [facility] AST (SGOT) 18 10 - 42 unit/L LAB CHEMISTRY METHOD 02/23/2024 10:20 AM [facility] ALT (SGPT) 24 10 - 60 unit/L LAB CHEMISTRY METHOD 02/23/2024 10:20 AM [facility] Alkaline Phosphatase 75 42 - 121 unit/L LAB CHEMISTRY METHOD 02/23/2024 10:20 AM [facility] Total Protein 5.1(L) 6.0 - 8.0 g/dL LAB CHEMISTRY METHOD 02/23/2024 10:20 AM [facility] Albumin 2.6(L) 3.2 - 5.0 g/dL LAB CHEMISTRY METHOD 02/23/2024 10:20 AM [facility] Total Bilirubin 1.0 0.0 - 1.4 mg/dL LAB CHEMISTRY METHOD 02/23/2024 10:20 AM [facility] Blood Venous blood specimen / Unknown Venipuncture / Unknown 02/23/2024 6:27 AM EST 02/23/2024 9:34 AM EST us Wally Flood MD LAB BLOOD ORDERABLES Final Resu lt [facility] 299 [place] [address], [place] [phone] * (ABNORMAL) Complete blood count (02/23/2024 6:27 AM EST) WBC 8.5 4.8 - 10.8 K/mcL LAB HEMETOLOGY METHOD 02/23/2024 10:35 AM [facility] RBC 2.60(L) 3.80 - 4.80 M/mcL LAB HEMETOLOGY METHOD 02/23/2024 10:35 AM [facility] Hemoglobin 7.2(L) 11.5 - 16.0 g/dL LAB HEMETOLOGY METHOD 02/23/2024 10:35 AM EST [facility] Hematocrit 24.4(L) 35.0 - 47.0 % LAB HEMETOLOGY METHOD 02/23/2024 10:35 AM EST [facility] MCV 93.5 79.0 - 98.0 FL LAB HEMETOLOGY METHOD 02/23/2024 10:35 AM [facility] MCH 27.6 27.0 - 32.0 pcg LAB HEMETOLOGY METHOD 02/23/2024 10:35 AM EST [facility] MCHC 29.5(L) 32.0 - 37.0 g/dL LAB HEMETOLOGY METHOD 02/23/2024 10:35 AM [facility] RDW 17.7(H) 11.0 - 15.0 % LAB HEMETOLOGY METHOD 02/23/2024 10:35 AM [facility] Platelets 189 130 - 400 K/mcL LAB HEMETOLOGY METHOD 02/23/2024 10:35 AM EST [facility] MPV 11.9(H) 7.0 - 11.0 FL LAB HEMETOLOGY METHOD 02/23/2024 10:35 AM EST [facility] NRBC 0.0 <1.0 % LAB HEMETOLOGY METHOD 02/23/2024 10:35 AM [facility] NRBC Absolute 0.00 <0.10 K/mcL LAB HEMETOLOGY METHOD 02/23/2024 10:35 AM EST [facility] Blood Venous blood specimen / Unknown Venipuncture / Unknown 02/23/2024 6:27 AM EST 02/23/2024 9:35 AM EST us Wally Flood MD LAB BLOOD ORDERABLES Final Resu lt [facility] 299 [place] [address], documented in this encounter Visit Diagnoses Diagnosis Chronic obstructive pulmonary disease with (acute) exacerbation (CMS/HCC) Essential (primary) hypertension Unspecified essential hypertension documented in this encounter Additional Health Concerns Infection Onset Date Last Indicated Resolved Time Respiratory Rule-Out 03/31/2024 03/31/2024 025 5:53 PM EST COVID-19 Rule-Out 03/31/2024 03/31/2024 03/31/2024 5:53 PM EST documented as of this encounter Care Teams Head Operator Relationship Specialty Start Date End Date Mason Hoffman MD [address] [place] [id number] PCP - General Internal Medicine 02/05/24 documented as of this encounter
--- OUTSIDE RECORDS SUMMARY | 2024-04-20 05:52 | XMS_ITS | Encounter Summary ---
Author Organization [facility] Address [address] [place] [address] Care Team Providers Care Weaving Teacher Name Role Phone Mason Hoffman MD Primary Care Provider Encounter Details Date Type Department Care Team (Late st Contact Info) Description 02/13/2024 Lab Requisition [facility] - Main Lab 299 [facility] [place] [address] Wally Flood MD 532 [place] [address] Essential (primary) hypertension; Chronic obstructive pulmonary disease with (acute) exacerbation (CMS/HCC) Social History Tobacco Use Types Packs/Day Years [...] 04/30/2024 3:00 PM EST Consult Pulmonolgy - [place] [address] [address] Guille Gupta MD 175 [facility] 200 [place] [address] 09/27/2024 9:55 AM EDT Office Visit [facility] - [facility] 154 300 [facility] 154 [place] [address] Jimmy Noguera MD 300 [facility] 154 [place] [address] documented as of this encounter Procedures Procedure Name Priority Date/Time Associated Diagnosis Comments COMPLETE BLOOD COUNT Routine 02/13/2024 4:59 AM EST Essential (primary) hypertension Chronic obstructive pulmonary disease with (acute) exacerbation (CMS/[facility]) COMPREHENSIVE METABOLIC PANEL Routine 02/13/2024 4:59 AM EST Essential (primary) hypertension Chronic obstructive pulmonary disease with (acute) exacerbation (CMS/HCC) documented in this encounter Results * (ABNORMAL) Comprehensive metabolic panel (02/13/2024 4:59 AM EST) Sodium 145 133 - 145 mmol/L LAB CHEMISTRY METHOD 02/13/2024 10:49 AM [facility] Potassium 4.1 3.5 - 5.5 mmol/L LAB CHEMISTRY METHOD 02/13/2024 10:49 AM [facility] Chloride 111(H) 96 - 110 mmol/L LAB CHEMISTRY METHOD 02/13/2024 10:49 AM [facility] CO2 26 21 - 32 mmol/L LAB CHEMISTRY METHOD 02/13/2024 10:49 AM [facility] Anion Gap 8 3 - 11 LAB CHEMISTRY METHOD 02/13/2024 10:49 AM [facility] Glucose 107(H) 70 - 100 mg/dL LAB CHEMISTRY METHOD 02/13/2024 10:49 AM [facility] BUN 63(H) 5 - 25 mg/dL LAB CHEMISTRY METHOD 02/13/2024 10:49 AM [facility] Creatinine 2.00(H) 0.50 - 1.10 mg/dL LAB CHEMISTRY METHOD 02/13/2024 10:49 AM [facility] eGFR 24(L) >=60 mL/min/1. 73m2 LAB CHEMISTRY METHOD 02/13/2024 10:49 AM [facility] Comment:Calculation based on the??Chronic Kidney Disease Epidemiology Collaboration (CKD-EPI) equation refit??without adjustment for race. BUN/Creatinine Ratio 31.5 LAB CHEMISTRY METHOD 02/13/2024 10:49 AM [facility] Calcium 9.4 8.5 - 10.5 mg/dL LAB CHEMISTRY METHOD 02/13/2024 10:49 AM [facility] AST (SGOT) 13 10 - 42 unit/L LAB CHEMISTRY METHOD 02/13/2024 10:49 AM [facility] ALT (SGPT) 27 10 - 60 unit/L LAB CHEMISTRY METHOD 02/13/2024 10:49 AM [facility] Alkaline Phosphatase 74 42 - 121 unit/L LAB CHEMISTRY METHOD 02/13/2024 10:49 AM [facility] Total Protein 5.7(L) 6.0 - 8.0 g/dL LAB CHEMISTRY METHOD 02/13/2024 10:49 AM [facility] Albumin 2.9(L) 3.2 - 5.0 g/dL LAB CHEMISTRY METHOD 02/13/2024 10:49 AM [facility] Total Bilirubin 0.4 0.0 - 1.4 mg/dL LAB CHEMISTRY METHOD 02/13/2024 10:49 AM [facility] Blood Venous blood specimen / Unknown Venipuncture / Unknown 02/13/2024 4:59 AM EST 02/13/2024 10:04 AM EST us Wally Flood MD LAB BLOOD ORDERABLES Final Resu lt [facility] 299 [place] [address], [place] [phone] * (ABNORMAL) Complete blood count (02/13/2024 4:59 AM EST) WBC 13.9(H) 4.8 - 10.8 K/mcL LAB HEMETOLOGY METHOD 02/13/2024 10:27 AM [facility] RBC 2.80(L) 3.80 - 4.80 M/mcL LAB HEMETOLOGY METHOD 02/13/2024 10:27 AM [facility] Hemoglobin 7.7(L) 11.5 - 16.0 g/dL LAB HEMETOLOGY METHOD 02/13/2024 10:27 AM [facility] Hematocrit 26.2(L) 35.0 - 47.0 % LAB HEMETOLOGY METHOD 02/13/2024 10:27 AM [facility] MCV 92.3 79.0 - 98.0 FL LAB HEMETOLOGY METHOD 02/13/2024 10:27 AM [facility] MCH 27.1 27.0 - 32.0 pcg LAB HEMETOLOGY METHOD 02/13/2024 10:27 AM [facility] MCHC 29.4(L) 32.0 - 37.0 g/dL LAB HEMETOLOGY METHOD 02/13/2024 10:27 AM [facility] RDW 15.2(H) 11.0 - 15.0 % LAB HEMETOLOGY METHOD 02/13/2024 10:27 AM [facility] Platelets 233 130 - 400 K/mcL LAB HEMETOLOGY METHOD 02/13/2024 10:27 AM [facility] MPV 12.0(H) 7.0 - 11.0 FL LAB HEMETOLOGY METHOD 02/13/2024 10:27 AM [facility] NRBC 0.1 <1.0 % LAB HEMETOLOGY METHOD 02/13/2024 10:27 AM [facility] NRBC Absolute 0.02 <0.10 K/mcL LAB HEMETOLOGY METHOD 02/13/2024 10:27 AM [facility] Blood Venous blood specimen / Unknown Venipuncture / Unknown 02/13/2024 4:59 AM EST 02/13/2024 10:04 AM EST us Wally Flood MD LAB BLOOD ORDERABLES Final Resu lt [facility] 299 [place] [address], documented in this encounter Visit Diagnoses Diagnosis Essential (primary) hypertension Unspecified essential hypertension Chronic obstructive pulmonary disease with (acute) exacerbation (CMS/HCC) documented in this encounter Additional Health Concerns Infection Onset Date Last Indicated Resolved Time Respiratory Rule-Out 03/31/2024 03/31/2024 025 5:53 PM EST COVID-19 Rule-Out 03/31/2024 03/31/2024 03/31/2024 5:53 PM EST documented as of this encounter Care Teams Weaving Teacher Relationship Specialty Start Date End Date Mason Hoffman MD [address] [place] [id number] PCP - General Internal Medicine 02/05/24 documented as of this encounter
--- OUTSIDE RECORDS SUMMARY | 2024-04-20 05:52 | XMS_ITS | Encounter Summary ---
Author Organization [facility] Address [address] [place] [address] Care Team Providers Care Supervisor [place] Name Role Phone Mason Hoffman MD Primary Care Provider [phone] Encounter Details Date Type Department Care Team (Late st Contact Info) Description 02/14/2024 Lab Requisition [facility] - Main Lab [address] [facility] [place] [address] Wally Flood MD 532 [place] [address] Chronic obstructive pulmonary disease with [...] 04/30/2024 3:00 PM EST Consult Pulmonolgy - [place] [address] [address] Guille Gupta MD 175 [facility] 200 [place] [address] 09/27/2024 9:55 AM EDT Office Visit [facility] - [facility] 154 300 [facility] 154 [place] [address] Jimmy Noguera MD 300 [facility] 154 [place] [address] documented as of this encounter Procedures Procedure Name Priority Date/Time Associated Diagnosis Comments COMPLETE BLOOD COUNT Routine 02/16/2024 6:49 AM EST Chronic obstructive pulmonary disease with (acute) exacerbation (CMS/HCC) Essential (primary) hypertension COMPREHENSIVE METABOLIC PANEL Routine 02/16/2024 6:49 AM EST Chronic obstructive pulmonary disease with (acute) exacerbation (CMS/HCC) Essential (primary) hypertension documented in this encounter Results * (ABNORMAL) Comprehensive metabolic panel (02/16/2024 6:49 AM EST) Sodium 142 133 - 145 mmol/L LAB CHEMISTRY METHOD 02/16/2024 10:27 AM [facility] Potassium 4.7 3.5 - 5.5 mmol/L LAB CHEMISTRY METHOD 02/16/2024 10:27 AM [facility] Chloride 110 96 - 110 mmol/L LAB CHEMISTRY METHOD 02/16/2024 10:27 AM [facility] CO2 25 21 - 32 mmol/L LAB CHEMISTRY METHOD 02/16/2024 10:27 AM [facility] Anion Gap 7 3 - 11 LAB CHEMISTRY METHOD 02/16/2024 10:27 AM [facility] Glucose 142(H) 70 - 100 mg/dL LAB CHEMISTRY METHOD 02/16/2024 10:27 AM [facility] BUN 71(H) 5 - 25 mg/dL LAB CHEMISTRY METHOD 02/16/2024 10:27 AM [facility] Creatinine 2.03(H) 0.50 - 1.10 mg/dL LAB CHEMISTRY METHOD 02/16/2024 10:27 AM [facility] eGFR 24(L) >=60 mL/min/1. 73m2 LAB CHEMISTRY METHOD 02/16/2024 10:27 AM [facility] Comment:Calculation based on the??Chronic Kidney Disease Epidemiology Collaboration (CKD-EPI) equation refit??without adjustment for race. BUN/Creatinine Ratio 35.0 LAB CHEMISTRY METHOD 02/16/2024 10:27 AM [facility] Calcium 9.0 8.5 - 10.5 mg/dL LAB CHEMISTRY METHOD 02/16/2024 10:27 AM [facility] AST (SGOT) 15 10 - 42 unit/L LAB CHEMISTRY METHOD 02/16/2024 10:27 AM [facility] ALT (SGPT) 24 10 - 60 unit/L LAB CHEMISTRY METHOD 02/16/2024 10:27 AM [facility] Alkaline Phosphatase 74 42 - 121 unit/L LAB CHEMISTRY METHOD 02/16/2024 10:27 AM [facility] Total Protein 5.4(L) 6.0 - 8.0 g/dL LAB CHEMISTRY METHOD 02/16/2024 10:27 AM [facility] Albumin 2.7(L) 3.2 - 5.0 g/dL LAB CHEMISTRY METHOD 02/16/2024 10:27 AM [facility] Total Bilirubin 0.8 0.0 - 1.4 mg/dL LAB CHEMISTRY METHOD 02/16/2024 10:27 AM [facility] Blood Venous blood specimen / Unknown Venipuncture / Unknown 02/16/2024 6:49 AM EST 02/16/2024 9:27 AM EST us Wally Flood MD LAB BLOOD ORDERABLES Final Resu lt [facility] 299 [place] [address], [place] [phone] * (ABNORMAL) Complete blood count (02/16/2024 6:49 AM EST) WBC 13.4(H) 4.8 - 10.8 K/mcL LAB HEMETOLOGY METHOD 02/16/2024 9:48 AM [facility] RBC 2.50(L) 3.80 - 4.80 M/mcL LAB HEMETOLOGY METHOD 02/16/2024 9:48 AM [facility] Hemoglobin 7.0(L) 11.5 - 16.0 g/dL LAB HEMETOLOGY METHOD 02/16/2024 9:48 AM [facility] Hematocrit 23.1(L) 35.0 - 47.0 % LAB HEMETOLOGY METHOD 02/16/2024 9:48 AM [facility] MCV 91.7 79.0 - 98.0 FL LAB HEMETOLOGY METHOD 02/16/2024 9:48 AM [facility] MCH 27.8 27.0 - 32.0 pcg LAB HEMETOLOGY METHOD 02/16/2024 9:48 AM [facility] MCHC 30.3(L) 32.0 - 37.0 g/dL LAB HEMETOLOGY METHOD 02/16/2024 9:48 AM [facility] RDW 15.9(H) 11.0 - 15.0 % LAB HEMETOLOGY METHOD 02/16/2024 9:48 AM [facility] Platelets 262 130 - 400 K/mcL LAB HEMETOLOGY METHOD 02/16/2024 9:48 AM [facility] MPV 12.1(H) 7.0 - 11.0 FL LAB HEMETOLOGY METHOD 02/16/2024 9:48 AM [facility] NRBC 0.4 <1.0 % LAB HEMETOLOGY METHOD 02/16/2024 9:48 AM [facility] NRBC Absolute 0.05 <0.10 K/mcL LAB HEMETOLOGY METHOD 02/16/2024 9:48 AM [facility] Blood Venous blood specimen / Unknown Venipuncture / Unknown 02/16/2024 6:49 AM EST 02/16/2024 9:27 AM EST us Wally Flood MD LAB BLOOD ORDERABLES Final Resu lt [facility] 299 [place] [address], documented in this encounter Visit Diagnoses Diagnosis Chronic obstructive pulmonary disease with (acute) exacerbation ([facility]) Essential (primary) hypertension Unspecified essential hypertension documented in this encounter Additional Health Concerns Infection Onset Date Last Indicated Resolved Time Respiratory Rule-Out 03/31/2024 03/31/2024 025 5:53 PM EST COVID-19 Rule-Out 03/31/2024 03/31/2024 03/31/2024 5:53 PM EST documented as of this encounter Care Teams Supervisor [place] Relationship Specialty Start Date End Date Mason Hoffman MD [address] [place] [id number] PCP - General Internal Medicine 02/05/24 documented as of this encounter
--- OUTSIDE RECORDS SUMMARY | 2024-04-20 05:52 | XMS_ITS | Encounter Summary ---
Author Organization [facility] Address [address] [place] [address] Care Team Providers Care Strategic Account Manager Name Role Phone Mason Hoffman MD Primary Care Provider [phone] Reason for Visit * Reason Onset Date Comments Request For Order(s) 03/18/2024 [facility] [id number], Encounter Details Date Type Department Care Team ([facility] Contact Info) Description 03/18/2024 Telephone Pediatrics - [place] [address] [place] [address] Mason Hoffman MD [address] [place] [address] Request For Order(s) ([facility] [id number],) Social History Tobacco Use Types Packs/Day Years [...] your loved ones. For example, early childhood director or elderly care for an older [...] Notes * Aracely Moore MA - 03/23/2024 9:11 AM EST Faxed back * Rebeka Lopez - 03/18/2024 4:07 PM EST Placed order in Mason Hoffman MD Please sign and fax back to [phone] documented in this encounter Plan of Treatment Upcoming Encounters Date Type Department Care Team (Late st Contact Info) Description 04/30/2024 3:00 PM EST Consult Pulmonolgy - [place] 175 [facility] [address] [place] [address] Guille Gupta MD 175 [facility] 200 [place] [address] 09/27/2024 9:55 AM EDT Office Visit [facility] - [address] 300 [facility] [address] [place] [phone] Jimmy Noguera MD [address] [facility] [address] [place] [address] documented as of this encounter Visit Diagnoses Not on filedocumented in this encounter Care Teams Strategic Account Manager Relationship Specialty Start Date End Date Mason Hoffman MD [address] [place] [address] PCP - General Internal Medicine 02/05/24 documented as of this encounter
--- OUTSIDE RECORDS SUMMARY | 2024-04-20 05:52 | XMS_ITS | Clinical Summary ---
Author Organization [facility] Address [address] [place] [address] Care Team Providers Care Dredge Lever Operator Name Role Phone Mason Hoffman MD Primary Care Provider [phone] Allergies No known active allergies Medications Medication Sig Dispensed Refills Start Date End Date Status vitamin B-12 (CYANOCOBALAMIN) tablet 1000 mcg Take 1,000 mcg by mouth daily. 0 09/06/2017 Active Cholecalciferol (D-3-5) 125 MCG (5000 UT) capsule Take 1 capsule (5,000 Units total) by mouth daily. 30 capsule 3 06/28/2021 Active Symbicort 160-4.5 MCG/ACT inhaler Inhale 1 inhalation into the lungs 2 (two) times a day. 1 Inhaler 3 06/28/2021 Active amLODIPine (NORVASC) tablet 10 mg Take 1 tablet (10 mg total) by mouth daily. 30 tablet 3 06/28/2021 Active atorvastatin (LIPITOR) tablet 40 mg Take 1 tablet (40 mg total) by mouth daily. 90 tablet 3 06/28/2021 Active Iron-Vitamin C 65-125 MG TABS Take 1 tablet by mouth daily. 30 tablet 3 06/28/2021 Active losartan (COZAAR) 100 MG tablet Take 1 tablet (100 mg total) by mouth daily. 30 tablet 3 06/28/2021 Active metoprolol succinate (TOPROL-XL) 24 hr tablet 50 mg Take 1 tablet (50 mg total) by mouth daily. 90 tablet 3 06/28/2021 Active furosemide (LASIX) 20 MG tablet Take 1 tablet (20 mg total) by mouth daily. 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/2017 Rectal polyp 09/25/2017 Internal hemorrhoids without complication 2017 Resolved Problems Problem Noted Date Diagnosed Date Resolved Date Encounter for colorectal cancer screening 09/25/2017 11/23/2017 Encounter for colorectal cancer screening 09/25/2017 11/23/2017 Gastric erythema 09/25/2017 11/23/2017 Duodenal erythema 09/25/2017 11/23/2017 Immunizations Name Administration Dates Next Due Adacel (Tdap) 06/18/2018 Family History Medical History Relation Name Comments Heart attack Father Hypertension Mother Stroke Mother Relation Name Status Comments Father Mother Social History Tobacco Use Types Packs/Day Years Used Date Smoking Tobacco: Former Cigarettes 1 Q uit: 12/01/2016 Smokeless Tobacco: Never Comments:Quit on 10/10 Alcohol Use Standard Drinks/Week Comments No 0 (1 standard drink = 0.6 oz pur e alcohol) Sex and Gender Information Value Date Recorded Sex Assigned at Not on file Gender Identity Not on file Sexual Orientation Not on file Job Start Date Occupation Industry Not on file Not on file Not on file Last Filed Vital Signs Vital Sign Reading Time Taken Comments Blood Pressure 136/62 06/28/2021 7:14 AM EDT Pulse 81 06/28/2021 7:14 AM EDT Temperature 36.3 ??C (97.4 ??F) 06/28/2021 7:14 AM ED T Respiratory Rate 18 06/28/2021 7:14 AM EDT Oxygen Saturation 96% 06/28/2021 12:00 PM EDT Inhaled Oxygen Concentration - - Weight 85.4 kg (188 lb 3.2 oz) 06/27/2021 2:01 P M EDT Height 160 cm (5' 3 ) 06/27/2021 2:01 PM EDT Body Mass Index 33.34 06/27/2021 2:01 PM EDT Plan of Treatment Health Maintenance Due Date Last Done Comments COVID-19 Vaccine (#1) 1937 Pneumococcal Vaccine (1 of 2 - PCV) 1943 Depression Screening 1949 BMI Counseling 1955 Preventative Health Evaluation 1955 Shingrix-Zoster Vaccine (1 of 2) 1987 Osteoporosis Screening (DEXA Scan) 2002 RSV Adult > 60+ Yrs or Pregn ant (1 - 1-dose 75+ series) 02/27/2012 Fall Risk Assessment 11/27/2022 11/27/2021 Influenza Vaccine (#1) 2023 DTap / Tdap / Td (2 - Td or Tdap) 06/18/2028 019 Hepatitis B Vaccines Aged Out No long er eligible based on patient's age to complete this topic RSV Ped < 20 months Aged Out No longe r eligible based on patient's age to complete this topic Goals Goal Patient Goal Type Associated Problems Recent Progress Patient-Stated? Author Patient will verbalize understanding of disease process and treatment plan. Chronic Care Management On track(2021 4:58 PM EDT) No Olamide [employer] Medical Devices Implanted Type Area Tobacco Grader Device Identifier Shelf Expiration Date Model / Serial / Lot Clip Hemoclip Medium 6 Cartridges Ligating Titanium [employer] [employer] - [id number] - [id number] Implanted:Qty: 1 on 11/20/2017 by Can Tripathi MD at [facility] [employer] 05/14/2021 [id number] / / [id number] Clip Hemoclip 24 Small Endo Ligating Titanium Internal [employer] [place] - [id number] - [id number] Implanted:Qty: 1 on 11/20/2017 by Can Tripathi MD at [facility] [employer] 06/11/2021 [id number] / / [id number] Patch Xenosure .8cmx.8cm [employer] [place] - [id number] - [id number] Implanted:Qty: 1 on 11/20/2017 by Can Tripathi MD at [facility] [employer] 09/20/2022 [id number] / / [id number] Advance Directives For more information, please contact: [phone] Documents on File Type Date Recorded Patient Parts Inspector Expl anation Advance Directive and Living Will 11/27/2017 Advance Directive and Living Will 11/19/2017 11:26 AM Latest Code Status on File Code Status Date Activated Date Inactivated Comments Full Code 06/27/2021 2:13 PM 06/28/2021 9:00 PM This co de status was ascertained in the following way: discussion with patient . Code Status History Code Status Date Activated Date Inactivated Comments Full Code 11/20/2017 1:51 PM 11/26/2017 7:45 PM This code status was ascertained in the following way: discussion with patient . Full Code 09/25/2017 12:19 PM 09/25/2017 7:25 PM This c ode status was ascertained in the following way: discussion with patient . Care Teams Dredge Lever Operator Relationship Specialty Start Date End Date Mason Hoffman MD [address] [facility] [address] PCP - General Internal Medicine 10/12/21
--- OUTSIDE RECORDS SUMMARY | 2024-04-20 05:52 | XMS_ITS | Encounter Summary ---
Author Organization [facility] Address [address] [place] [address] Care Team Providers Care Locomotive Firer/Fireman Name Role Phone Mason Hoffman MD Primary Care Provider [phone] Encounter Details Date Type Department Care Team (Late st Contact Info) Description 02/17/2024 Lab Requisition [facility] - Main Lab 299 [facility] [place] [address] Wally Flood MD [address] [place] [address] Chronic obstructive pulmonary disease with [...] 3:00 PM EST Consult Pulmonolgy - [place] [address] [address] Guille Gupta MD [address] [address] 09/27/2024 9:55 AM EDT Office Visit [facility] - [facility] 154 300 [facility] 154 [place] [address] Jimmy Noguera MD [address] [facility] 154 [place] [address] documented as of this encounter Procedures Procedure Name Priority Date/Time Associated Diagnosis Comments [id number], RSV, FLU A AND B QUALITATIVE RT-PCR, LOCAL REFERENCE LAB Routine 02/17/2024 12:00 AM EST Chronic obstructive pulmonary disease with (acute) exacerbation (CMS/[facility]) documented in this encounter Results * [id number], RSV, Influenza A and B qualitative RT-PCR (02/17/2024 12:00 AM EST) SARS COV-2 Not Detected Not Detected LAB MOLECULAR DIAGNOSTICS METHOD 02/17/2024 2:36 PM [facility] Comment: Disclaimer: The manner in which this information is used to guide patient care is the responsibility of the healthcare provider. Testing was performed using the Art Qualified m SARS-CoV-2 test. This test has been [...] for Healthcare Providers can be found at: https://www.fda.gov/media/046715/download Fact sheet for Patients can be found at: https://www.fda.gov/media/483498/download Influenza A PCR Not Detected Not Detected LAB MOLECULAR DIAGNOSTICS METHOD 02/17/2024 2:36 PM EST [facility] Influenza B PCR Not Detected Not Detected LAB MOLECULAR DIAGNOSTICS METHOD 02/17/2024 2:36 PM [facility] RSV PCR Not Detected Not Detected LAB MOLECULAR DIAGNOSTICS METHOD 02/17/2024 2:36 PM [facility] Swab Nasopharyngeal structure / Unknown Non-blood Collection / Unknown 02/17/2024 02/17/2024 12:09 PM EST Wally Flood MD LAB MICROBIOLOGY - GENERAL VIPUL VAZQUEZ Final Result [facility] [address] [place] [address], documented in this encounter Visit Diagnoses Diagnosis Chronic obstructive pulmonary disease with (acute) exacerbation (CMS/HCC) documented in this encounter Additional Health Concerns Infection Onset Date Last Indicated Resolved Time Respiratory Rule-Out 03/31/2024 03/31/2024 025 5:53 PM EST COVID-19 Rule-Out 03/31/2024 03/31/2024 03/31/2024 5:53 PM EST documented as of this encounter Care Teams Locomotive Firer/Fireman Relationship Specialty Start Date End Date Mason Hoffman MD [address] [place] [address] [place] [address] PCP - General Internal Medicine 02/05/24 documented as of this encounter
--- OUTSIDE RECORDS SUMMARY | 2024-04-20 05:52 | XMS_ITS | Encounter Summary ---
Author Organization [facility] Address [address] [place] [address] Care Team Providers Care Assistant Store Director Name Role Phone Mason Hoffman MD Primary Care Provider [phone] Encounter Details Date Type Department Care Team (Late st Contact Info) Description 02/27/2024 Lab Requisition [facility] - Main Lab 299 [facility] [place] [address] Wally Flood MD [address] [place] [address] Chronic obstructive pulmonary disease with [...] 04/30/2024 3:00 PM EST Consult Pulmonolgy - [place] [address] [address] Guille Gupta MD 175 [facility] 200 [place] [address] 09/27/2024 9:55 AM EDT Office Visit [facility] - [facility] 154 300 [facility] 154 [place] [address] Jimmy Noguera MD 300 [facility] 154 [place] [address] documented as of this encounter Procedures Procedure Name Priority Date/Time Associated Diagnosis Comments COMPLETE BLOOD COUNT Routine 03/01/2024 6:30 AM EST Chronic obstructive pulmonary disease with (acute) exacerbation (CMS/HCC) Essential (primary) hypertension COMPREHENSIVE METABOLIC PANEL Routine 03/01/2024 6:30 AM EST Chronic obstructive pulmonary disease with (acute) exacerbation (CMS/HCC) Essential (primary) hypertension documented in this encounter Results * (ABNORMAL) Comprehensive metabolic panel (03/01/2024 6:30 AM EST) Sodium 139 133 - 145 mmol/L LAB CHEMISTRY METHOD 03/01/2024 10:07 AM [facility] Potassium 4.0 3.5 - 5.5 mmol/L LAB CHEMISTRY METHOD 03/01/2024 10:07 AM [facility] Chloride 104 96 - 110 mmol/L LAB CHEMISTRY METHOD 03/01/2024 10:07 AM [facility] CO2 27 21 - 32 mmol/L LAB CHEMISTRY METHOD 03/01/2024 10:07 AM [facility] Anion Gap 8 3 - 11 LAB CHEMISTRY METHOD 03/01/2024 10:07 AM [facility] Glucose 108(H) 70 - 100 mg/dL LAB CHEMISTRY METHOD 03/01/2024 10:07 AM [facility] BUN 24 5 - 25 mg/dL LAB CHEMISTRY METHOD 03/01/2024 10:07 AM [facility] Creatinine 2.20(H) 0.50 - 1.10 mg/dL LAB CHEMISTRY METHOD 03/01/2024 10:07 AM [facility] eGFR 21(L) >=60 mL/min/1. 73m2 LAB CHEMISTRY METHOD 03/01/2024 10:07 AM [facility] Comment:Calculation based on the??Chronic Kidney Disease Epidemiology Collaboration (CKD-EPI) equation refit??without adjustment for race. BUN/Creatinine Ratio 10.9 LAB CHEMISTRY METHOD 03/01/2024 10:07 AM [facility] Calcium 9.2 8.5 - 10.5 mg/dL LAB CHEMISTRY METHOD 03/01/2024 10:07 AM [facility] AST (SGOT) 20 10 - 42 unit/L LAB CHEMISTRY METHOD 03/01/2024 10:07 AM [facility] ALT (SGPT) 21 10 - 60 unit/L LAB CHEMISTRY METHOD 03/01/2024 10:07 AM [facility] Alkaline Phosphatase 98 42 - 121 unit/L LAB CHEMISTRY METHOD 03/01/2024 10:07 AM [facility] Total Protein 5.7(L) 6.0 - 8.0 g/dL LAB CHEMISTRY METHOD 03/01/2024 10:07 AM [facility] Albumin 2.9(L) 3.2 - 5.0 g/dL LAB CHEMISTRY METHOD 03/01/2024 10:07 AM [facility] Total Bilirubin 0.8 0.0 - 1.4 mg/dL LAB CHEMISTRY METHOD 03/01/2024 10:07 AM [facility] Blood Venous blood specimen / Unknown Venipuncture / Unknown 03/01/2024 6:30 AM EST 03/01/2024 9:19 AM EST us Wally Flood MD LAB BLOOD ORDERABLES Final Resu lt [facility] [address] [place] [address], [place] [phone] * (ABNORMAL) Complete blood count (03/01/2024 6:30 AM EST) WBC 7.8 4.8 - 10.8 K/mcL LAB HEMETOLOGY METHOD 03/01/2024 9:43 AM [facility] RBC 2.80(L) 3.80 - 4.80 M/mcL LAB HEMETOLOGY METHOD 03/01/2024 9:43 AM [facility] Hemoglobin 7.7(L) 11.5 - 16.0 g/dL LAB HEMETOLOGY METHOD 03/01/2024 9:43 AM [facility] Hematocrit 25.7(L) 35.0 - 47.0 % LAB HEMETOLOGY METHOD 03/01/2024 9:43 AM [facility] MCV 92.4 79.0 - 98.0 FL LAB HEMETOLOGY METHOD 03/01/2024 9:43 AM [facility] MCH 27.7 27.0 - 32.0 pcg LAB HEMETOLOGY METHOD 03/01/2024 9:43 AM [facility] MCHC 30.0(L) 32.0 - 37.0 g/dL LAB HEMETOLOGY METHOD 03/01/2024 9:43 AM [facility] RDW 16.8(H) 11.0 - 15.0 % LAB HEMETOLOGY METHOD 03/01/2024 9:43 AM [facility] Platelets 269 130 - 400 K/mcL LAB HEMETOLOGY METHOD 03/01/2024 9:43 AM [facility] MPV 11.5(H) 7.0 - 11.0 FL LAB HEMETOLOGY METHOD 03/01/2024 9:43 AM [facility] NRBC 0.0 <1.0 % LAB HEMETOLOGY METHOD 03/01/2024 9:43 AM [facility] NRBC Absolute 0.00 <0.10 K/mcL LAB HEMETOLOGY METHOD 03/01/2024 9:43 AM [facility] Blood Venous blood specimen / Unknown Venipuncture / Unknown 03/01/2024 6:30 AM EST 03/01/2024 9:30 AM EST us Wally Flood MD LAB BLOOD ORDERABLES Final Resu lt [facility] [address] [place] [address], documented in this encounter Visit Diagnoses Diagnosis Chronic obstructive pulmonary disease with (acute) exacerbation (CMS/HCC) Essential (primary) hypertension Unspecified essential hypertension documented in this encounter Additional Health Concerns Infection Onset Date Last Indicated Resolved Time Respiratory Rule-Out 03/31/2024 03/31/2024 025 5:53 PM EST COVID-19 Rule-Out 03/31/2024 03/31/2024 03/31/2024 5:53 PM EST documented as of this encounter Care Teams Assistant Store Director Relationship Specialty Start Date End Date Mason Hoffman MD 305 [place] [address] PCP - General Internal Medicine 02/05/24 documented as of this encounter
--- OUTSIDE RECORDS SUMMARY | 2024-04-20 05:52 | XMS_ITS | Encounter Summary ---
Author Organization [facility] Address [address] [place] [address] Care Team Providers Care Tenant Selector Name Role Phone Mason Hoffman MD Primary Care Provider [phone] Reason for Visit * Reason Onset Date Comments Request For Order(s) 03/18/2024 [facility] [id number] Encounter Details Date Type Department Care Team ([facility] Contact Info) Description 03/18/2024 Telephone Pediatrics - [place] [address] [place] [address] Mason Hoffman MD [address] [place] [id number] Request For Order(s) ([facility] [id number]) Social History Tobacco Use Types Packs/Day Years [...] for your loved ones. For example, child abuse worker or elderly care for an older adult? [...] Notes * Aracely Moore MA - 03/23/2024 9:15 AM EST Faxed back * Rebeka Lopez - 03/18/2024 3:33 PM EST Placed order in Mason Hoffman MD Please sign and fax back to [phone] documented in this encounter Plan of Treatment Upcoming Encounters Date Type Department Care Team (Late st Contact Info) Description 04/30/2024 3:00 PM EST Consult Pulmonolgy - [place] [address] [phone] Guille Gupta MD 175 [facility] 200 [place] [address] 09/27/2024 9:55 AM EDT Office Visit [facility] Cardiology Associates - [address] [facility] [address] [place] [address] Jimmy Noguera MD [address] [facility] [address] [place] [address] documented as of this encounter Visit Diagnoses Not on filedocumented in this encounter Care Teams Tenant Selector Relationship Specialty Start Date End Date Mason Hoffman MD [address] [place] [address] PCP - General Internal Medicine 02/05/24 documented as of this encounter
--- OUTSIDE RECORDS SUMMARY | 2024-04-20 05:52 | XMS_ITS | Encounter Summary ---
Author Organization [facility] Address [address] [place] [address] Care Team Providers Care Collar Starcher Name Role Phone Mason Hoffman MD Primary Care Provider [phone] Encounter Details Date Type Department Care Team (Latest Contact Info) Description 02/27/2024 Lab Requisition [facility] - Main Lab 299 [facility] [address] Wally Flood MD [address] [place] [address] Atrioventricular block, complete ([facility]) Social History Tobacco Use Types Packs/Day Years [...] 04/30/2024 3:00 PM EST Consult Pulmonolgy - [place] [address] [address] Guille Gupta MD 175 [facility] 200 [place] [address] 09/27/2024 9:55 AM EDT Office Visit [facility] Cardiology Associates - [facility] 154 300 [facility] 154 [place] [address] Jimmy Noguera MD 300 [facility] 154 [place] [address] documented as of this encounter Procedures Procedure Name Priority Date/Time Associated Diagnosis Comments COMPLETE BLOOD COUNT Routine 02/28/2024 8:04 AM EST Atrioventricular block, complete (CMS/HCC) documented in this encounter Results * (ABNORMAL) Complete blood count (02/28/2024 8:04 AM EST) [facility] WBC 7.9 4.8 - 10.8 K/mcL LAB HEMETOLOGY METHOD 02/28/2024 11:32 AM [facility] RBC 2.80(L) 3.80 - 4.80 M/mcL LAB HEMETOLOGY METHOD 02/28/2024 11:32 AM [facility] Hemoglobin 7.3(L) 11.5 - 16.0 g/dL LAB HEMETOLOGY METHOD 02/28/2024 11:32 AM [facility] Hematocrit 25.4(L) 35.0 - 47.0 % LAB HEMETOLOGY METHOD 02/28/2024 11:32 AM [facility] MCV 91.7 79.0 - 98.0 FL LAB HEMETOLOGY METHOD 02/28/2024 11:32 AM [facility] MCH 26.4(L) 27.0 - 32.0 pcg LAB HEMETOLOGY METHOD 02/28/2024 11:32 AM [facility] MCHC 28.7(L) 32.0 - 37.0 g/dL LAB HEMETOLOGY METHOD 02/28/2024 11:32 AM [facility] RDW 17.0(H) 11.0 - 15.0 % LAB HEMETOLOGY METHOD 02/28/2024 11:32 AM [facility] Platelets 249 130 - 400 K/mcL LAB HEMETOLOGY METHOD 02/28/2024 11:32 AM [facility] MPV 11.7(H) 7.0 - 11.0 FL LAB HEMETOLOGY METHOD 02/28/2024 11:32 AM [facility] NRBC 0.0 <1.0 % LAB HEMETOLOGY METHOD 02/28/2024 11:32 AM [facility] NRBC Absolute 0.00 <0.10 K/mcL LAB HEMETOLOGY METHOD 02/28/2024 11:32 AM [facility] Blood Venous blood specimen / Unknown Venipuncture / Unknown 02/28/2024 8:04 AM EST 02/28/2024 11:13 AM EST Wally Flood MD LAB BLOOD ORDERABLES Final Resu lt [facility] [address] [place] [address], documented in this encounter Visit Diagnoses Diagnosis Atrioventricular block, complete (CMS/HCC) Atrioventricular block, complete documented in this encounter Additional Health Concerns Infection Onset Date Last Indicated Resolved Time Respiratory Rule-Out 03/31/2024 03/31/2024 025 5:53 PM EST COVID-19 Rule-Out 03/31/2024 03/31/2024 03/31/2024 5:53 PM EST documented as of this encounter Care Teams Collar Starcher Relationship Specialty Start Date End Date Mason Hoffman MD [facility] [place] [address] PCP - General Internal Medicine 02/05/24 documented as of this encounter
--- OUTSIDE RECORDS SUMMARY | 2024-04-20 05:52 | XMS_ITS | Clinical Summary ---
Author Organization [facility] Address [address] [place] [address] Care Team Providers Care Parliamentary Counsel Name Role Phone Abraham Valle MD Primary Care Provider [phone] Allergies No known active allergies Medications Medication Sig Dispensed Refills Start Date End Date Status simvastatin (ZOCOR) 10 MG tablet Take 10 mg by mouth nightly. Active losartan (COZAAR) 100 MG tablet Take 100 mg by mouth daily. Active metoPROLOL TARTRATE-hydrochloroth iazide (LOPRESSOR HCT) 100-25 MG per tablet Take 1 tablet by mouth daily. Active Social History Tobacco Use Types Packs/Day Years Used Date Smoking Tobacco: Former Smokeless Tobacco: Never Sex and Gender Information Value Date Recorded Sex Assigned at Not on file Gender Identity Not on file Sexual Orientation Not on file Last Filed Vital Signs Vital Sign Reading Time Taken Comments Blood Pressure 161/81 06/18/2018 6:18 PM EDT Pulse 74 06/18/2018 6:18 PM EDT Temperature 36.6 ??C (97.9 ??F) 06/18/2018 6:18 PM ED T Respiratory Rate - - Oxygen Saturation 97% 06/18/2018 6:18 PM EDT Inhaled Oxygen Concentration - - Weight 71.4 kg (157 lb 8 oz) 06/18/2018 6:18 PM EDT Height 160 cm (5' 3 ) 06/18/2018 6:18 PM EDT Body Mass Index 27.9 06/18/2018 6:18 PM EDT Plan of Treatment Health Maintenance Due Date Last Done Comments DTaP/Tdap/Td Vaccines (1 - Tdap) 02/27/1954 Pneumococcal Vaccines 50+ (1 of 1 - PCV) 1987 Zoster (Shingles) Vaccine (1 of 2) 1987 DXA Bone Density (Females,Ag es 65 and older) 2002 RSV Vaccine 60 years and old er and Patients (1 - 1-dose 75+ series) 02/27/2012 Influenza Vaccine 09/25/2023 COVID-19 Vaccine (2023-2 5 season) 2023 Hepatitis B Vaccines Aged Out No long er eligible based on patient's age to complete this topic Care Teams Parliamentary Counsel Relationship Specialty Start Date End Date Abraham Valle MD [address] [place] [address] PCP - General Internal Medicine 06/18/18
--- OUTSIDE RECORDS SUMMARY | 2024-04-20 05:52 | XMS_ITS | Encounter Summary ---
Author Organization [facility] Address [address] [place] [address] Care Team Providers Care Hospital Medicine Director Name Role Phone Mason Hoffman MD Primary Care Provider [phone] Reason for Visit * Reason Onset Date Comments fax order 04/02/2024 [facility] Fax Order [id number] Encounter Details Date Type Department Care Team (Late st Contact Info) Description 04/02/2024 Telephone Pediatrics - [place] [address] [place] [address] Mason Hoffman MD [address] [place] [phone] fax order ([facility] Fax Order [id number]) Social History Tobacco Use Types Packs/Day Years [...] for your loved ones. For example, child protective services social worker or elderly care for an older [...] Progress Notes * Aracely Moore MA - 04/08/2024 9:45 AM EST Faxed back * Kelle Cody - 04/02/2024 4:07 PM EST [facility] Fax Order placed in Mason Hoffman MD bin. Please sign, date, and fax back to [phone]. Thank you documented in this encounter Plan of Treatment Upcoming Encounters Date Type Department Care Team (Late st Contact Info) Description 04/30/2024 3:00 PM EST Consult Pulmonolgy - [place] [address] [facility] [address] [place] [address] Guille Gupta MD [address] [facility] [address] [place] [address] 09/27/2024 9:55 AM EDT Office Visit [facility] - [facility] [address] [facility] [address] [place] [id number] Jimmy Noguera MD [address] [place] [address] documented as of this encounter Visit Diagnoses Not on filedocumented in this encounter Additional Health Concerns Assessment Noted Time PHQ-9 Depression Total Score: 0 03/21/19 25 3:19 PM EST documented as of this encounter Care Teams Hospital Medicine Director Relationship Specialty Start Date End Date Mason Hoffman MD [address] [place] [id number] PCP - General Internal Medicine 02/05/24 documented as of this encounter
[2024-04-20 06:05] LABS: Potassium 3.8 mmol/L (3.3-5.1)
== END 2024-04-20 05:49 | disposition home or self-care (01) ==
LOC: HO.MMNH1L 05:48
PROVIDERS: Visit Provider Nurse Practitioner
DX: J96.21 Acute and chronic respiratory failure with hypoxia (principal); J44.9 Chronic obstructive pulmonary disease, unspecified
CPT/HCPCS: 36415; 84132